=== PATIENT | female | born 1940 | race Caucasian/White ===

== ENCOUNTER → 2016-08-02 | Outpatient (CLI) | payer BC ==
[~2016-08-02] MED LIST: ACET-1138 PO; ALBU0.633 NEB; ALBU1AER9 INH; ALBU1NEB10 NEB; CALC-393 PO; CEPH500C PO; CHOL1000 PO; CLOR7.5T14 PO; DABI150C PO; DICL1GEL12 TOP; DILT-113 PO; FLEC100T21 PO; LISI10TA PO; OMEG10007 PO; PRD75 PO; VNTHFA/IN INH; ZCRT/40 PO
--- NOTE | 2016-08-02 15:36 | MAMMOGRAPHY REPORT ---
BILATERAL DIGITAL SCREENING MAMMOGRAM WITH CAD: 08/02/2016 CLINICAL HISTORY: Routine screening. The patient reported to the technologist that she has bilatera l medial breast pain, which she thinks may be related to working out at the gym. TECHNIQUE: Current study was also evaluated with a Computer Aided Detection (CAD) system. Bilatera l CC and MLO views were obtained. COMPARISON: Comparison is made to exams dated: 05/10/2015 mammogram, 03/13/2013 mammogram, 4 mammogram, 02/26/2012 mammogram, and 10/13/2009 mammogram - [facility]. BREAST COMPOSITION: The tissue of both breasts is almost entirely fatty. FINDINGS: No suspicious masses, calcifications, or areas of architectural distortion are noted in e ither breast. There has been no significant interval change compared to prior exams. Scattered bilat eral benign-appearing calcifications are not significantly changed. IMPRESSION: ACR BI-RADS CATEGORY 2: BENIGN There is no mammographic evidence of malignancy. A 1 year screening mammogram is recommended. Also recommend clinical follow-up for bilateral medial breast pain. The patient will receive written not ification of the results. Approximately 10% of breast cancers are not detected with mammography. A negative mammographic repor t should not delay biopsy if a clinically suggestive mass is present. Jodi Kelley M.D. ah/:08/02/2016 14:07:47 Bench Scientist: Amanda ROACH)([place]), [facility] letter sent: Normal 1/2 BI-RADS Code: ACR BI-RADS Category 2: Benign
== END | disposition home or self-care (01) ==
LOC: C.MAMM 12:50
PROVIDERS: ATTEND Internal Medicine
DX: Z12.31 Encounter for screening mammogram for malignant neoplasm of breast (principal); N64.4 Mastodynia

== ENCOUNTER → 2016-08-15 | Outpatient (CLI) | payer BC ==
[2016-08-15 14:59] LABS: URINE APPEARANCE CLEAR (CLEAR); URINE BILIRUBIN NEG (NEG); URINE COLOR YELLOW; URINE NITRITE NEG (NEG); URINE SPECIFIC GRAVITY 1.004 (1.000-1.030); UROBILINOGEN NEG (NEG)
[2016-08-15 15:01] LABS: MANUAL MICROSCOPIC REQUIRED? NO; REVIEW REQ? NO
== END | disposition home or self-care (01) ==
LOC: C.LAB 12:45
PROVIDERS: ATTEND Obstetrics & Gynecology
DX: R35.0 Frequency of micturition (principal)

== ENCOUNTER → 2016-11-19 | Outpatient (CLI) | payer BC ==
[2016-11-19 17:41] LABS: BASO % 0.7 %; BASO ABS # 0.06 K/uL (0-0.2); COMPLETE YES; HEMATOCRIT 42.7 % (37-47); IG% 0.1 %; LYMPH % 40.4 %; LYMPH ABS # 3.38 K/uL (1.2-3.4); MEAN CORPUSCULAR HEMOGLOBIN 29.9 pg (25-34); MEAN PLATELET VOLUME 9.6 fL (7.4-10.4); MONO % 8.5 %; NEUT % 48.3 %; PLATELET COUNT 228 K/uL (130-400); RED BLOOD COUNT 4.85 M/uL (4.2-5.4); WHITE BLOOD COUNT 8.36 K/uL (4.8-10.8)
[2016-11-19 18:14] LABS: ALT/SGPT 28 U/L (12-78); AST/SGOT 14 U/L (15-37); BLOOD UREA NITROGEN 15 mg/dl (7-18); BUN/CREATININE RATIO 15.2 (10-20); CALCIUM 8.8 mg/dl (8.5-10.1); CARBON DIOXIDE 23 mmol/L (21-32); CHLORIDE 108 mmol/L (98-107); GLUCOSE 82 mg/dl (70-99); POTASSIUM 4.1 mmol/L (3.5-5.1); SODIUM 141 mmol/L (136-145)
[2016-11-19 18:25] LABS: ALB/GLOB RATIO 1.1 (0.9-2); ALKALINE PHOSPHATASE 65 U/L (45-117); CHOLESTEROL 118 mg/dl (0-200); CHOLESTEROL/HDL RATIO 2.2; HDL CHOLESTEROL 53 mg/dl; LDL CHOLESTEROL CALCULATED 43 mg/dl; THYROID STIMULATING HORMONE 0.686 uIu/ml (0.300-4.500); TRIGLYCERIDES 112 mg/dl (0-150); VERY LOW DENSITY LIPOPROT CALC 22 mg/dl
[2016-11-20 06:31] LABS: ESTIMATED AVERAGE GLUCOSE 126 mg/dl; HA1C FLAG Normal (Normal)
--- NOTE | 2016-11-23 11:37 | CODING QUERY MEDICAL NECESSITY ---
SUPPORTING DIAGNOSIS NEEDED A supporting diagnosis is required for the test/procedure performed on this patient in order for us to be reimbursed by the patient's insurance. Please provide a supporting diagnosis for the following test/procedure listed below next to the test name along with your signature. *If there is no additional diagnosis for this patient that would support the following test/procedure please document that below next to the test/procedure. Test(s)/Procedure(s) that require a supporting diagnosis: * HEMOGLOBIN A1C DIAGNOSIS: Provider Signature: Date: Thank you Lilliam Jimenez [employer] Information Management Once completed, please kindly fax back to [phone] For questions please call [phone]
== END | disposition home or self-care (01) ==
LOC: C.LAB 17:10
PROVIDERS: ATTEND Internal Medicine
DX: E55.9 Vitamin D deficiency, unspecified (principal); R73.03 Prediabetes

== ENCOUNTER → 2016-12-31 | Day surgery (SDC) | payer BC ==
[2016-12-14 08:04] VITALS: Ht 162.6 cm; Wt 71.8 kg
[~2016-12-31] VITALS: Ht 162.6 cm; Wt 71.8 kg
[~2016-12-31] MED LIST changes: +500ML BSS 0.3ML EPI 1:1000PF IRRIG ONE; -ACET-1138 PO; +ACETAMINOPHEN 325 MG TAB PO PRN; +AMVISC PLUS 0.8ML SYRINGE INT OCU ONE; +ATROPINE SULFATE 0.1 MG/ML 5ML SYR IV PRN; +BRIMONIDINE TART 0.2% OP SOLN PER DROP CHARGE ONE; +BSS FLUSH ONE; -CALC-393 PO; +ENDOCOAT 0.85ML SYRINGE INT OCU ONE; +EpHEDrine SULFATE INJ 50 MG/ML AMP IV PRN; +EpINEphrine INJ 1MG/ML AMP 1 MG/ML AMP ONE; +FENTANYL CITRATE INJ 50 MCG/1 ML 2 ML VIAL ONE; +LACTATED RINGER'S 1000ML 500 ML IV SCH; +LIDOCAINE 4% OP SOLN DROP CHARGE ONE; +LIDOCAINE 4% OP SOLN DROP CHARGE OPL SCH; +LIDOCAINE HCL 1% MPF 2 ML VIAL ONE; +MIDAZOLAM HCL 1 MG/ML 2ML VIAL ONE; +MOXIFLOXACIN OPH SOLN PER DROP CHARGE OPL SCH; +ONDANSETRON INJ 2 MG/ML 2 ML VIAL IV PRN; +POVIDONE-IODINE OP SOLN 30 ML BTL ONE; +PROPARACAINE 0.5% OP SOLN PER DROP CHARGE OPL SCH; +TOBRAMYCIN/DEXAMETHASONE OPH OINT PER APPLN CHARGE ONE
[2016-12-31] MEDS: TROPICAMIDE 1% OP SOLN PER DROP CHARGE OPL SCH ×2 (06:45→06:50)
[2016-12-31] MEDS: PHENYLEPHRINE HCL 2.5% OP SOLN PER DROP CHARGE OPL SCH ×2 (06:45→06:49)
[2016-12-31] MEDS: CYCLOPENTOLATE HCL 1% OP SOLN PER DROP CHARGE OPL SCH ×2 (06:46→06:51)
[2016-12-31] MEDS: KETOROLAC 0.5% OP SOLN PER DROP CHARGE OPL SCH ×2 (06:47→06:52)
[2016-12-31] MEDS: MOXIFLOXACIN OPH SOLN PER DROP CHARGE OPL SCH ×2 (06:48→06:58)
[2016-12-31] MEDS: MOXIFLOXACIN OPH SOLN PER DROP CHARGE ONE ×2 (06:53→07:13)
--- NOTE | 2016-12-31 06:53 | History & Physical Bridge - SC ---
H&P Re-Evaluation Bridge Note: I have examined the patient, reviewed the History & Physical and in the interval since the performance of the History & Physical I have noted the following changes of clinical significance: No changes noted
[2016-12-31 07:30] VITALS: TEMP 37
--- NOTE | 2016-12-31 07:32 | Discharge Instructions-SurgCtr ---
Discharge Instructions Date of Service Dec 31, 2016. Visit Reason for Visit: Cataract Left Eye Discharge Discharge Diagnosis / Problem: cataract left eye Discharge Goals Goal(s): Improve function Activity Recommendations Activity Limitations: per Instructions/Follow-up section Lifting Limitations: no more than 5 pounds Anesthesia . Post Anesthesia Instructions: If you have had General Anesthesia or IV Sedation: * Do not drive today. * Resume driving when surgeon permits. * Do not make important decisions or sign legal documents today. * Call surgeon for: 1. Temperature elevations greater than 101 degrees F. 2. Uncontrollable pain. 3. Excessive bleeding. 4. Persistent nausea and vomiting. 5. Medication intolerance (nausea, vomiting or rash). * For nausea and vomiting use only clear liquids such as: tea, soda, bouillon until nausea subsides, then gradually increase diet as tolerated. * If you have any concerns or questions, call your surgeon's office. If physician is unavailable and it is an emergency, call 911 or go to the nearest emergency room. . Instructions / Follow-Up Instructions / Follow-Up ACTIVITY RECOMMENDATIONS: * Light activities * You may walk outside, read, watch television. * Mild irritation and blurred vision are common for the first few days, redness around the white part of the eye is common. MEDICATIONS: Resume previous medications unless instructed otherwise by your surgeon. Eye drops (today and tomorrow): Cipro - one drop in operative eye every 2 hours while awake Prednisolone 1% - one drop in operative eye every 2 hours while awake Ilevro - one drop operative eye 1 times daily SPECIAL CARE INSTRUCTIONS: * If any problems or concerns, please call Dr. Boyd's office at . * Keep plastic shield taped over eye to sleep at night. * Keep plastic shield taped over eye except to administer eye drops. * Keep plastic shield on until office visit the following day. FOLLOW UP VISIT: Follow-up with Dr. Boyd in the [place] office as scheduled. If not already scheduled, please call the office at . Diet Recommendations Home Diet: resume previous diet Procedures Procedures Performed: Left Eye Cataract Phacoemulsification With Intraocular Lens Implant Pending Studies Studies pending at discharge: no Medical Emergencies . Who to Call and When: Medical Emergencies: If at any time you feel your situation is an emergency, please call 911 immediately. . Non-Emergent Contact Non-Emergency issues call your: Metal Cutter . . "Provider Documentation" section prepared by Cristhian Boyd. .
--- NOTE | 2016-12-31 07:34 | [facility] Operative Report ---
Operative Report Operative Date Dec 31, 2016. Pre-Operative Diagnosis Left Eye Cataract Post-Operative Diagnosis Same Procedure(s) Performed Left Eye Cataract Phacoemulsification With Intraocular Lens Implant Surgeon Dr. Boyd Seamer Surgeon(s) None Estimated Blood Loss None Findings cataract left eye Specimens None Drains none Anesthesia local with sedation Complication(s) None Disposition Recovery Room / PACU Implants mx60 20.0 Indications decreased vision left eye Description of Procedure After informed consent was obtained in the holding area the patient was wheeled back to the operating room where cardiac monitoring leads and oxygen by nasal cannula was administered by Anesthesia. Gentle IV sedation was given, and the patient's left eye was prepped and draped in usual sterile fashion. A wire lid speculum was placed into the left eye and the operating microscope was swung into position. Using 0.12 forceps and a Supersharp blade a paracentesis port was made 3 o'clock hours away from the 3 o'clock position of the patient's left eye. 1% non-preserved Lidocaine was then injected into the anterior chamber for anesthesia. A 2.2 mm keratotome blade was then used to make a shelved clear corneal incision at the 3 o'clock position of the left eye. Amvisc was injected into the anterior chamber and a cystotome and Utrata forceps were used to perform a curvilinear capsulorrhexis. BSS on a hydrodissection cannula was used to hydrodissect the lens nucleus away from the capsular bag. The phacoemulsification handpiece was then used in a stop and chop fashion to remove the lens nucleus. The irrigation and aspiration handpiece was then used to remove the residual cortical material. Amvisc was injected into the capsular bag and anterior chamber and a Bausch & Lomb MX60 20.0 Diopter intraocular lens was injected into the capsular bag. Irrigation and aspiration handpiece was used to remove the residual viscoelastic material. The wounds were hydrated and noted to be watertight. The wire lid speculum was removed from the eye. Vigamox, Brimonidine, and TobraDex ointment were placed on the eye and it was shielded. It should be noted that EndoCoat was used extensively during the case to protect the cornea endothelium. DISPOSITION: The patient tolerated the procedure well and was wheeled to the post anesthesia care unit in stable condition. I attest to the content of the Intraoperative Record and any orders documented therein. Any exceptions are noted below. I attest to the content of the Intraoperative Record and any orders documented therein. Any exceptions are noted below.
--- NOTE | 2016-12-31 07:40 | Anesthesia Progress Nt - [facility] ---
Anesthesia Post Op Note Date & Time Dec 31, 2016 at 07:40 Vital Signs Pain Intensity: 0 Vital Signs Past 12 Hours Date Time Temp Pulse Resp B/P (MAP) Pulse Ox O2 Delivery O2 Flow Rate FiO2 12/31/16 07:30 37.0 68 20 174/94 (120) 96 Room Air 12/31/16 06:38 36.9 77 16 185/97 (126) 96 Room Air Notes Mental Status: alert / awake / arousable, participated in evaluation Pt Amnestic to Procedure: Yes Nausea / Vomiting: adequately controlled Pain: adequately controlled Airway Patency, RR, SpO2: stable & adequate BP & HR: stable & adequate Hydration State: stable & adequate Anesthetic Complications: no major complications apparent
[2016-12-31 07:50] VITALS: BP 147/89; PULSE 60; O2SAT 96
== END | disposition home or self-care (01) ==
LOC: X.SURG 06:14
PROVIDERS: ATTEND Ophthalmology
DX: H25.12 Age-related nuclear cataract, left eye (principal); I10 Essential (primary) hypertension; E78.00 Pure hypercholesterolemia, unspecified; J45.909 Unspecified asthma, uncomplicated; I48.91 Unspecified atrial fibrillation; I34.1 Nonrheumatic mitral (valve) prolapse; Z83.511 Family history of glaucoma; M06.9 Rheumatoid arthritis, unspecified; M19.90 Unspecified osteoarthritis, unspecified site; F41.9 Anxiety disorder, unspecified; Z79.01 Long term (current) use of anticoagulants

== ENCOUNTER → 2017-01-08 | Outpatient (CLI) | payer BC ==
[~2017-01-08] MED LIST changes: -500ML BSS 0.3ML EPI 1:1000PF IRRIG ONE; -ACETAMINOPHEN 325 MG TAB PO PRN; -AMVISC PLUS 0.8ML SYRINGE INT OCU ONE; -ATROPINE SULFATE 0.1 MG/ML 5ML SYR IV PRN; -BRIMONIDINE TART 0.2% OP SOLN PER DROP CHARGE ONE; -BSS FLUSH ONE; -ENDOCOAT 0.85ML SYRINGE INT OCU ONE; -EpHEDrine SULFATE INJ 50 MG/ML AMP IV PRN; -EpINEphrine INJ 1MG/ML AMP 1 MG/ML AMP ONE; -FENTANYL CITRATE INJ 50 MCG/1 ML 2 ML VIAL ONE; -LACTATED RINGER'S 1000ML 500 ML IV SCH; -LIDOCAINE 4% OP SOLN DROP CHARGE ONE; -LIDOCAINE 4% OP SOLN DROP CHARGE OPL SCH; -LIDOCAINE HCL 1% MPF 2 ML VIAL ONE; -MIDAZOLAM HCL 1 MG/ML 2ML VIAL ONE; -MOXIFLOXACIN OPH SOLN PER DROP CHARGE OPL SCH; -ONDANSETRON INJ 2 MG/ML 2 ML VIAL IV PRN; -POVIDONE-IODINE OP SOLN 30 ML BTL ONE; -PROPARACAINE 0.5% OP SOLN PER DROP CHARGE OPL SCH; -TOBRAMYCIN/DEXAMETHASONE OPH OINT PER APPLN CHARGE ONE
[2017-01-08 16:07] LABS: BLOOD UREA NITROGEN 16 mg/dl (7-18); BUN/CREATININE RATIO 14.5 (10-20); CALCIUM 9.3 mg/dl (8.5-10.1); CARBON DIOXIDE 26 mmol/L (21-32); CHLORIDE 104 mmol/L (98-107); GLUCOSE 98 mg/dl (70-99); POTASSIUM 4.2 mmol/L (3.5-5.1); SODIUM 136 mmol/L (136-145)
== END | disposition home or self-care (01) ==
LOC: C.LAB 14:21
PROVIDERS: ATTEND Internal Medicine Cardiovascular Disease
DX: I10 Essential (primary) hypertension (principal)

== ENCOUNTER → 2017-01-14 | Day surgery (SDC) | payer BC ==
[2017-01-03 11:05] VITALS: Ht 162.6 cm; Wt 71.8 kg
[~2017-01-14] VITALS: Ht 162.6 cm; Wt 71.8 kg
[~2017-01-14] MED LIST changes: +500ML BSS 0.3ML EPI 1:1000PF IRRIG ONE; +ACETAMINOPHEN 325 MG TAB PO PRN; +AMVISC PLUS 0.8ML SYRINGE INT OCU ONE; +ATROPINE SULFATE 0.1 MG/ML 5ML SYR IV PRN; +BRIMONIDINE TART 0.2% OP SOLN PER DROP CHARGE ONE; +BSS FLUSH ONE; +ENDOCOAT 0.85ML SYRINGE INT OCU ONE; +EpHEDrine SULFATE INJ 50 MG/ML AMP IV PRN; +EpINEphrine INJ 1MG/ML AMP 1 MG/ML AMP ONE; +FENTANYL CITRATE INJ 50 MCG/1 ML 2 ML VIAL ONE; +LACTATED RINGER'S 1000ML 500 ML IV SCH; +LIDOCAINE 4% OP SOLN DROP CHARGE ONE; +LIDOCAINE 4% OP SOLN DROP CHARGE OPR SCH; +LIDOCAINE HCL 1% MPF 2 ML VIAL ONE; +MIDAZOLAM HCL 1 MG/ML 2ML VIAL ONE; +MIX: 3ML BSS AND 1ML EPI(PF) TOP ONE; +MOXIFLOXACIN OPH SOLN PER DROP CHARGE ONE; +ONDANSETRON INJ 2 MG/ML 2 ML VIAL IV PRN; +POVIDONE-IODINE OP SOLN 30 ML BTL ONE; +PROPARACAINE 0.5% OP SOLN PER DROP CHARGE OPR SCH; +TOBRAMYCIN/DEXAMETHASONE OPH OINT PER APPLN CHARGE ONE
[2017-01-14] MEDS: PHENYLEPHRINE HCL 2.5% OP SOLN PER DROP CHARGE OPR SCH ×2 (06:41→06:46)
[2017-01-14] MEDS: TROPICAMIDE 1% OP SOLN PER DROP CHARGE OPR SCH ×2 (06:42→06:47)
[2017-01-14] MEDS: CYCLOPENTOLATE HCL 1% OP SOLN PER DROP CHARGE OPR SCH ×2 (06:43→06:48)
[2017-01-14] MEDS: KETOROLAC 0.5% OP SOLN PER DROP CHARGE OPR SCH ×2 (06:44→06:49)
[2017-01-14] MEDS: MOXIFLOXACIN OPH SOLN PER DROP CHARGE OPR SCH ×2 (06:45→06:55)
--- NOTE | 2017-01-14 07:24 | Discharge Instructions-SurgCtr ---
Discharge Instructions Date of Service Jan 14, 2017. Visit Reason for Visit: Right Cataract Discharge Discharge Diagnosis / Problem: cataract right eye Discharge Goals Goal(s): Improve function Medications Stopped Medications Name(s): Pradaxa, last dose 01/11/17 Activity Recommendations Activity Limitations: per Instructions/Follow-up section Lifting Limitations: no more than 5 pounds Anesthesia . Post Anesthesia Instructions: If you have had General Anesthesia or IV Sedation: * Do not drive today. * Resume driving when surgeon permits. * Do not make important decisions or sign legal documents today. * Call surgeon for: 1. Temperature elevations greater than 101 degrees F. 2. Uncontrollable pain. 3. Excessive bleeding. 4. Persistent nausea and vomiting. 5. Medication intolerance (nausea, vomiting or rash). * For nausea and vomiting use only clear liquids such as: tea, soda, bouillon until nausea subsides, then gradually increase diet as tolerated. * If you have any concerns or questions, call your surgeon's office. If physician is unavailable and it is an emergency, call 911 or go to the nearest emergency room. . Instructions / Follow-Up Instructions / Follow-Up ACTIVITY RECOMMENDATIONS: * Light activities * You may walk outside, read, watch television. * Mild irritation and blurred vision are common for the first few days, redness around the white part of the eye is common. MEDICATIONS: Resume previous medications unless instructed otherwise by your surgeon. Eye drops (today and tomorrow): Cipro - one drop in operative eye every 2 hours while awake Prednisolone 1% - one drop in operative eye every 2 hours while awake Ilevro - one drop operative eye 1 times daily SPECIAL CARE INSTRUCTIONS: * If any problems or concerns, please call Dr. Boyd's office at . * Keep plastic shield taped over eye to sleep at night. * Keep plastic shield taped over eye except to administer eye drops. * Keep plastic shield on until office visit the following day. FOLLOW UP VISIT: Follow-up with Dr. Boyd in the [place] office as scheduled. If not already scheduled, please call the office at . Diet Recommendations Home Diet: resume previous diet Procedures Procedures Performed: Right Cataract Phacoemulsification With Intraocular Lens Implant Pending Studies Studies pending at discharge: no Medical Emergencies . Who to Call and When: Medical Emergencies: If at any time you feel your situation is an emergency, please call 911 immediately. . Non-Emergent Contact Non-Emergency issues call your: Smokehouse Worker . . "Provider Documentation" section prepared by Cristhian Boyd. .
[2017-01-14 07:26] VITALS: TEMP 36.6
--- NOTE | 2017-01-14 07:26 | [facility] Operative Report ---
Operative Report Operative Date Jan 14, 2017. Pre-Operative Diagnosis Right Eye Cataract Post-Operative Diagnosis same Procedure(s) Performed Right Cataract Phacoemulsification With Intraocular Lens Implant Surgeon Dr. Keaton Boyd Irrigation Equipment Installer Surgeon(s) 0 Estimated Blood Loss 0 Findings cataract right eye Fluids (cc crystalloids) see anesthesia record Specimens none Drains none Anesthesia local with sedation Complication(s) None Disposition Recovery Room / PACU Implants mx60 19.0 Indications decreased vision right eye Description of Procedure After informed consent was obtained in the holding area the patient was wheeled back to the operating room where cardiac monitoring leads and oxygen by nasal cannula was administered by Anesthesia. Gentle IV sedation was given, and the patient's right eye was prepped and draped in usual sterile fashion. A wire lid speculum was placed into the right eye and the operating microscope was swung into position. Using 0.12 forceps and a Supersharp blade a paracentesis port was made 3 o'clock hours away from the 9 o'clock position of the patient's right eye. 1% non-preserved Lidocaine was then injected into the anterior chamber for anesthesia. A 2.2 mm keratotome blade was then used to make a shelved clear corneal incision at the 9 o'clock position of the right eye. Amvisc was injected into the anterior chamber and a cystotome and Utrata forceps were used to perform a curvilinear capsulorrhexis. BSS on a hydrodissection cannula was used to hydrodissect the lens nucleus away from the capsular bag. The phacoemulsification handpiece was then used in a stop and chop fashion to remove the lens nucleus. The irrigation and aspiration handpiece was then used to remove the residual cortical material. Amvisc was injected into the capsular bag and anterior chamber and a Bausch & Lomb MX60 19.0 Diopter intraocular lens was injected into the capsular bag. Irrigation and aspiration handpiece was used to remove the residual viscoelastic material. The wounds were hydrated and noted to be watertight. The wire lid speculum was removed from the eye. Vigamox, Brimonidine, and TobraDex ointment were placed on the eye and it was shielded. It should be noted that EndoCoat was used extensively during the case to protect the cornea endothelium. DISPOSITION: The patient tolerated the procedure well and was wheeled to the post anesthesia care unit in stable condition. I attest to the content of the Intraoperative Record and any orders documented therein. Any exceptions are noted below. I attest to the content of the Intraoperative Record and any orders documented therein. Any exceptions are noted below.
--- NOTE | 2017-01-14 07:34 | Anesthesia Progress Nt - [facility] ---
Anesthesia Post Op Note Date & Time Jan 14, 2017 at 07:34 Vital Signs Pain Intensity: 0 Vital Signs Past 12 Hours Date Time Temp Pulse Resp B/P (MAP) Pulse Ox O2 Delivery O2 Flow Rate FiO2 01/14/17 07:26 36.6 66 14 182/95 (124) 94 Room Air 01/14/17 06:31 36.6 78 16 161/87 (111) 95 Room Air Notes Mental Status: alert / awake / arousable, participated in evaluation Pt Amnestic to Procedure: Yes Nausea / Vomiting: adequately controlled Pain: adequately controlled Airway Patency, RR, SpO2: stable & adequate BP & HR: stable & adequate Hydration State: stable & adequate Anesthetic Complications: no major complications apparent
[2017-01-14 07:43] VITALS: BP 142/82; PULSE 57; O2SAT 95
== END | disposition home or self-care (01) ==
LOC: X.SURG 06:22
PROVIDERS: ATTEND Ophthalmology
DX: H25.11 Age-related nuclear cataract, right eye (principal); I10 Essential (primary) hypertension; E78.00 Pure hypercholesterolemia, unspecified; I48.91 Unspecified atrial fibrillation; Z79.01 Long term (current) use of anticoagulants; Z96.1 Presence of intraocular lens

== ENCOUNTER 2017-01-19 16:08 | Emergency (ER) | payer BC ==
[~2017-01-19] VITALS: Ht 162.6 cm; Wt 72.0 kg
[~2017-01-19 16:08] MED LIST changes: -500ML BSS 0.3ML EPI 1:1000PF IRRIG ONE; -ACETAMINOPHEN 325 MG TAB PO PRN; -ALBU0.633 NEB; -AMVISC PLUS 0.8ML SYRINGE INT OCU ONE; -ATROPINE SULFATE 0.1 MG/ML 5ML SYR IV PRN; -BRIMONIDINE TART 0.2% OP SOLN PER DROP CHARGE ONE; -BSS FLUSH ONE; -CEPH500C PO; -DABI150C PO; -DICL1GEL12 TOP; -DILT-113 PO; -ENDOCOAT 0.85ML SYRINGE INT OCU ONE; -EpHEDrine SULFATE INJ 50 MG/ML AMP IV PRN; -EpINEphrine INJ 1MG/ML AMP 1 MG/ML AMP ONE; -FENTANYL CITRATE INJ 50 MCG/1 ML 2 ML VIAL ONE; -LACTATED RINGER'S 1000ML 500 ML IV SCH; -LIDOCAINE 4% OP SOLN DROP CHARGE ONE; -LIDOCAINE 4% OP SOLN DROP CHARGE OPR SCH; -LIDOCAINE HCL 1% MPF 2 ML VIAL ONE; -MIDAZOLAM HCL 1 MG/ML 2ML VIAL ONE; -MIX: 3ML BSS AND 1ML EPI(PF) TOP ONE; -MOXIFLOXACIN OPH SOLN PER DROP CHARGE ONE; -ONDANSETRON INJ 2 MG/ML 2 ML VIAL IV PRN; -POVIDONE-IODINE OP SOLN 30 ML BTL ONE; -PROPARACAINE 0.5% OP SOLN PER DROP CHARGE OPR SCH; -TOBRAMYCIN/DEXAMETHASONE OPH OINT PER APPLN CHARGE ONE; -VNTHFA/IN INH
[2017-01-19 16:27] VITALS: TEMP 36.5; Ht 162.6 cm; Wt 72.0 kg
[2017-01-19] MEDS ORDERED: DABI150C PO (16:57)
[2017-01-19] MEDS ORDERED: VNTHFA/IN INH (16:57)
[2017-01-19] MEDS ORDERED: ALBU0.633 NEB (16:57)
--- NOTE | 2017-01-19 17:08 | EMERGENCY ROOM VISIT NOTE ---
ED Visit Note First contact with patient: 16:33 CHIEF COMPLAINT: Right foot pain HISTORY OF PRESENT ILLNESS: This 76 yo female patient presents to the emergency department, ambulatory, complaining of swelling and pain in the right foot at rest and worse with weight bearing. The patient states the pain began this morning when getting out of bed. She states she was riding the recumbent bike at the gym yesterday, did not experience any pain until this morning. 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 The patient rates the pain as constant and 8/10. The patient has had no relief of the pain, despite using ice. The patient is able to walk, however this significantly worsens the discomfort. No numbness or weakness. No ankle pain. There are no lacerations of the foot. The patient is able to move all of their toes and their ankle without pain. No previous fracture to this foot. No history of osteoporosis or osteopenia. REVIEW OF SYSTEMS: GENERAL: A 6 system review of systems was completed with positives and pertinent negatives in the HPI. ALLERGIES: Bactrim, ciprofloxacin, Permax 15, Singulair, Celebrex, moxifloxacin , a citalopram, corticosteroids, pollen MEDICATIONS: Please see list. I did personally review the patient's medication list at bedside. PMH: Hyperlipidemia, asthma, hypertension SOCIAL HISTORY: The patient lives locally with family. She denies drug, alcohol , tobacco use. PHYSICAL EXAM: Vital Signs: Reviewed Nurse's notes, vital signs stable. GENERAL : This is a 76-year-old female, in no acute distress, but appears in pain, well- developed, well-nourished. MUSCULOSKELATAL: There is no visual deformity of the right foot. There is no erythema or ecchymosis. There is no warmth. There is tenderness and swelling over the medial, plantar aspect of the right foot. There is no tenderness over the lateral or medial malleolus. No tenderness of the tib/fib. The range of motion of the right foot is full. There is mild tenderness over the plantar fascia. The skin is intact and there are no lacerations or puncture wounds. Dorsalis pedis pulse 2+. Capillary refill less than 2 seconds. RADIOLOGY: X-Ray Right Foot: FINDINGS: Tarsometatarsal joints are intact. There is no acute fracture. Irregularity of the base of the right fifth metatarsal is chronic. There is mild soft tissue swelling along the medial aspect the right first metatarsophalangeal joint. Evaluation of several toes is difficult due to chronic deformity. IMPRESSION: 1. No acute fracture or dislocation of the right foot. 2. Mild soft tissue swelling along the medial aspect the right first metatarsophalangeal joint. EMERGENCY DEPARTMENT COURSE: I examined the patient. The patient does request crutches to help her walk. An X-ray of the right foot was reviewed by myself and radiologist and reveals medial soft tissue swelling, but no acute fracture. The patient was placed in an Carlos wrap and instructed on the use of crutches. The patient was discharged home in good condition. The patient was seen by Dr. Hurley, who is in agreement with the assessment and plan. The patient's blood pressure throughout her emergency department visit was normal. DIFFERENTIAL DIAGNOSIS: Plantar fasciitis, fracture, sprain, contusion, strain, and others. DIAGNOSIS: plantar fasciitis TREATMENT: Acetaminophen(Tylenol) may be used for fever or pain. Use 1000mg every six hours as needed. Avoid using more than 3000mg in a 24 hour period. Use Voltaren Gel as directed. Ice compresses for 20 minutes at a time four times daily for 2-3 days. As discussed, you should freeze a water bottle, and roll this under your foot during the day. Use the carlos wrap for compression around the foot. This will help with swelling. Use the crutches as instructed. Rest and elevate your injury. Return to the ER immediately for any numbness, tingling, severe pain, extreme swelling in the extremity or as needed. Call your physical therapist for further evaluation and rehabilitation regarding your soft tissue injury. Call [facility], [phone], if no improvement in 1-2 weeks, to arrange follow up for your injury. Follow-up with your primary care physician in 2 to 3 days for a recheck of your current condition. Problem List Medical Problems: (1) A-fib Status: Chronic (2) Acute abdominal pain Status: Resolved (3) Acute abdominal pain Status: Resolved (4) Asthma Status: Chronic (5) Dyslipidemia Status: Chronic (6) Hematuria Status: Resolved (7) HTN (hypertension) Status: Chronic Current/Historical Medications Scheduled Cholecalciferol (Vitamin D3), 1,000 TAB PO 3XWK Dabigatran Etexilate Mesylate (Pradaxa), 150 MG PO BID Diclofenac Sodium (Topical) (Voltaren 1% Top Gel), 4 GM TOP QID Flecainide (Tambocor), 100 MG PO BID Lisinopril (Prinivil), 10 MG PO QAM Simvastatin (Zocor), 40 MG PO QPM Scheduled PRN Albuterol Hfa (Ventolin Hfa), 1 PUFFS INH Q4 PRN for SORE THROAT Albuterol Sulfate (Albuterol Sulfate), 1 VIAL NEB Q6 PRN for SOB/Wheezing Clorazepate Dipotassium (Tranxene-T), 7.5 MG PO TID PRN for Anxiety/Agitation Allergies Coded Allergies: Sulfamethoxazole w/Trimethoprim (Verified Allergy, Intermediate, RASH, ) Moxifloxacin (Verified Allergy, Unknown, unknown, 01/19/17) POLLEN (Verified Allergy, Unknown, HAY FEVER, 01/19/17) Corticosteroids (Verified Adverse Reaction, Intermediate, BECOMES "EMOTIONAL", 01/19/17) Celecoxib (Verified Adverse Reaction, Unknown, PT STATES SHE DOESN'T TOLERATE, "FELT FAINT", 01/19/17) Ciprofloxacin (Verified Adverse Reaction, Unknown, abdominal pain, 01/19/17 ) Escitalopram (Verified Adverse Reaction, Unknown, dreams, abd pain, ) Montelukast (Verified Adverse Reaction, Unknown, DRY MOUTH, 01/19/17) Paroxetine (Verified Adverse Reaction, Unknown, abd pain, dreams, 01/19/17) Vital Signs Date Time Temp Pulse Resp B/P (MAP) Pulse Ox O2 Delivery O2 Flow Rate FiO2 01/19/17 16:27 36.5 76 16 142/88 94 Room Air Departure Information Impression Primary Impression: Plantar fasciitis of right foot Dispostion Home / Self-Care Condition GOOD Prescriptions Diclofenac Sodium (Topical) (VOLTAREN 1% TOP GEL) 1 % Gel 4 GM TOP QID for 14 Days, #1 TUBE Prov: Monique Streeter, WES 01/19/17 Referrals Earl Braun M.D. (PCP) Sebastianelli, Aaron J.,M.D. Patient Instructions ED Plantar Fasciitis, [facility] Additional Instructions ORTHOPEDIC INSTRUCTIONS: Acetaminophen(Tylenol) may be used for fever or pain. Use 1000mg every six hours as needed. Avoid using more than 3000mg in a 24 hour period. Use Voltaren Gel as directed. Ice compresses for 20 minutes at a time four times daily for 2-3 days. As discussed, you should freeze a water bottle, and roll this under your foot during the day. Use the carlos wrap for compression around the foot. This will help with swelling. Use the crutches as instructed. Rest and elevate your injury. Return to the ER immediately for any numbness, tingling, severe pain, extreme swelling in the extremity or as needed. Call your physical therapist for further evaluation and rehabilitation regarding your soft tissue injury. Call [facility], [phone], if no improvement in 1-2 weeks, to arrange follow up for your injury. Follow-up with your primary care physician in 2 to 3 days for a recheck of your current condition.
--- NOTE | 2017-01-19 17:24 | DIAGNOSTIC IMAGING REPORT ---
RIGHT FOOT MIN 3 VIEWS ROUTINE CLINICAL HISTORY: Medial right foot pain. COMPARISON: None FINDINGS: Tarsometatarsal joints are intact. There is no acute fracture. Irregularity of the base of the right fifth metatarsal is chronic. There is mild soft tissue swelling along the medial aspect the right first metatarsophalangeal joint. Evaluation of several toes is difficult due to chronic deformity. IMPRESSION: 1. No acute fracture or dislocation of the right foot. 2. Mild soft tissue swelling along the medial aspect the right first metatarsophalangeal joint. Electronically signed by: Prosper Mathews M.D. 01/19/2017 5:23 PM Dictated Date/Time: 01/19/2017 5:21 PM
[2017-01-19] MEDS ORDERED: DICL1GEL12 TOP (18:06)
[2017-01-19 18:13] VITALS: BP 137/87; PULSE 63; O2SAT 95
--- NOTE | 2017-01-19 20:16 | EMERGENCY ROOM VISIT NOTE ---
ED Visit Note First contact with patient: 16:33 I have personally evaluated and examined this patient. I agree with assessment and plan of Monique Streeter PA-C. Medial right foot swelling s/p exercise. No fracture likely this is inflammatory non-infection. JACKIE.
[2017-01-20] MEDS ORDERED: CEPH500C PO (20:05)
== END 2017-01-19 18:14 | disposition home or self-care (01) ==
LOC: C.EDB 16:08 → C.EDD 18:14
DX: M72.2 Plantar fascial fibromatosis (principal); I10 Essential (primary) hypertension; I48.91 Unspecified atrial fibrillation; E78.5 Hyperlipidemia, unspecified; J45.909 Unspecified asthma, uncomplicated; Z79.899 Other long term (current) drug therapy; Z88.2 Allergy status to sulfonamides; Z88.8 Allergy status to other drugs, medicaments and biological substances

== ENCOUNTER 2017-01-20 19:28 | Emergency (ER) | payer BC ==
[~2017-01-20] VITALS: Ht 162.6 cm; Wt 72.4 kg
[~2017-01-20 19:28] MED LIST changes: +ALBU0.633 NEB; -ALBU1AER9 INH; -ALBU1NEB10 NEB; +DABI150C PO; +DICL1GEL12 TOP; -OMEG10007 PO; -PRD75 PO; +VNTHFA/IN INH
[2017-01-20 19:36] VITALS: TEMP 36.5; Ht 162.6 cm; Wt 72.4 kg
[2017-01-20] MEDS ORDERED: CEPH500C PO (20:05)
[2017-01-20] MEDS ORDERED: CEPHALEXIN 500MG HOME PACK 1 EA BTL PO STA (20:06)
--- NOTE | 2017-01-20 20:06 | EMERGENCY ROOM VISIT NOTE ---
ED Visit Note First contact with patient: 19:51 I did evaluate and examine this patient myself. I did guide management for the patient. I agree with the APC's assessment as discussed. Please see the APC's dictation for further details. The patient is presenting with right ankle pain. She seen here yesterday but developed redness this morning. She appears to have a small area of cellulitis and will be started on Keflex. She was advised follow up with her doctor.
--- NOTE | 2017-01-20 20:07 | EMERGENCY ROOM VISIT NOTE ---
ED Visit Note First contact with patient: 19:51 CHIEF COMPLAINT: Infection of the right foot HISTORY OF PRESENT ILLNESS: This 76-year-old female patient presents to the emergency department for the second time in 2 days, complaining of redness in the medial aspect of the right foot. The patient states since yesterday, she has been using ice every 20 minutes and wearing the Carlos wrap for compression. She states the pain has significantly improved since yesterday. The patient has been using crutches to help her walk for comfort. The patient states the swelling has also improved since yesterday. The patient states she became concerned when she noticed a small area of redness on the medial aspect of the right foot. She does still have full range of motion, and has been tolerating weightbearing much better. The area of redness is not warm or painful. The patient denies fever, chills, nausea, or loss of appetite. The patient's tetanus shot is up to date. REVIEW OF SYSTEMS: A 10-system review of systems was performed with positives and pertinent negatives listed in the history of present illness. All other systems were reviewed and are negative. ALLERGIES: Bactrim, moxifloxacin, pollen, corticosteroids, Celebrex, ciprofloxacin, escitalopram, Singulair, paroxetine MEDICATIONS: Please see list. I did personally review the patient's medication list at bedside. PMH: Unchanged from previous visit. SOCIAL HISTORY: The patient lives locally with family. She denies drug, alcohol , tobacco use. PHYSICAL EXAM: Vital Signs: Reviewed Nurse's notes, Temperature 36.5C, vital signs stable, however blood pressure is elevated. The patient states she is very worried about the redness in her foot, and is concerned she has a blood clot. The patient states she has been very stressed out today. GENERAL: This is a 76-year-old female, in no acute distress, is non toxic in appearance, well- developed, well-nourished. SKIN: There is a 2 cm in diameter circular area of extremely mild erythema. The area is not red, warm, tender, or swollen. There is no lymphangitic streaking. There is no discharge. There is no fluctuance. There is no induration. There is no open wound. HEART: Regular rate and rhythm without murmur, gallop, or rub. LUNGS: Clear to auscultation bilaterally without wheezes, rales, or rhonchi. NEURO: Alert and oriented to person, place, and time. Normal sensation to light and sharp touch. Capillary reflex less than 2 seconds. Peripheral pulses 2 + bilaterally. EMERGENCY DEPARTMENT COURSE: I examined the patient. The patient presents with an extremely mild erythematous area on the medial aspect of the right foot. The patient had been seen yesterday and was diagnosed with tendinitis versus plantar fasciitis yesterday. She states her symptoms are significantly improving. She was seen by Dr. Al in the emergency department, who does feel that the area is cellulitic in appearance. The patient will be started on Keflex as prescribed. I discussed this with the patient, and she was discharged home in good condition. I do feel that the patient's blood pressure elevation is situational at this time. The patient is under the care of a physician regarding her blood pressure. I did encourage her to follow-up with her physician regarding elevated blood pressure. DIFFERENTIAL DIAGNOSIS: Cellulitis, tendonitis, plantar fasciitis, local reaction to topical cream, and others. DIAGNOSIS: Cellulitis of the right foot DISCHARGE INSTRUCTIONS: You were prescribed Keflex to be taken 4 times daily. This is an antibiotic. All antibiotics have the potential to cause diarrhea. Stop this medication and contact a medical provider if you were to develop any significant adverse side effects including: wheezing, shortness of breath, passing out, vomiting, or a diffuse rash. Always take antibiotics as directed and COMPLETE the ENTIRE course regardless of the improvement of your symptoms. Use Voltaren gel and/or Tylenol as recommended yesterday for discomfort. Return to the emergency department for worsening redness, swelling, fever, nausea, vomiting, chills, or other concerning symptoms. Please follow up this week with your PCP for recheck and further evaluation. Problem List Medical Problems: (1) A-fib Status: Chronic (2) Acute abdominal pain Status: Resolved (3) Acute abdominal pain Status: Resolved (4) Asthma Status: Chronic (5) Dyslipidemia Status: Chronic (6) Hematuria Status: Resolved (7) HTN (hypertension) Status: Chronic Current/Historical Medications Scheduled Cephalexin Monohydrate (Keflex), 500 MG PO QID Cholecalciferol (Vitamin D3), 1,000 TAB PO 3XWK Dabigatran Etexilate Mesylate (Pradaxa), 150 MG PO BID Diclofenac Sodium (Topical) (Voltaren 1% Top Gel), 4 GM TOP QID Flecainide (Tambocor), 100 MG PO BID Lisinopril (Prinivil), 10 MG PO QAM Simvastatin (Zocor), 40 MG PO QPM Scheduled PRN Albuterol Hfa (Ventolin Hfa), 1 PUFFS INH Q4 PRN for SORE THROAT Albuterol Sulfate (Albuterol Sulfate), 1 VIAL NEB Q6 PRN for SOB/Wheezing Clorazepate Dipotassium (Tranxene-T), 7.5 MG PO TID PRN for Anxiety/Agitation Allergies Coded Allergies: Sulfamethoxazole w/Trimethoprim (Verified Allergy, Intermediate, RASH, ) Moxifloxacin (Verified Allergy, Unknown, unknown, 01/19/17) POLLEN (Verified Allergy, Unknown, HAY FEVER, 01/19/17) Corticosteroids (Verified Adverse Reaction, Intermediate, BECOMES "EMOTIONAL", 01/19/17) Celecoxib (Verified Adverse Reaction, Unknown, PT STATES SHE DOESN'T TOLERATE, "FELT FAINT", 01/19/17) Ciprofloxacin (Verified Adverse Reaction, Unknown, abdominal pain, 01/19/17 ) Escitalopram (Verified Adverse Reaction, Unknown, dreams, abd pain, ) Montelukast (Verified Adverse Reaction, Unknown, DRY MOUTH, 01/19/17) Paroxetine (Verified Adverse Reaction, Unknown, abd pain, dreams, 01/19/17) Vital Signs Date Time Temp Pulse Resp B/P (MAP) Pulse Ox O2 Delivery O2 Flow Rate FiO2 01/20/17 19:36 36.5 107 18 188/86 95 Room Air Departure Information Impression Primary Impression: Cellulitis of foot, right Dispostion Home / Self-Care Condition GOOD Prescriptions Cephalexin Monohydrate (Keflex) 500 Mg Cap 500 MG PO QID for 10 Days, #40 CAP Prov: Monique Streeter PA-C 01/20/17 Referrals Earl Braun M.D. (PCP) Patient Instructions ED Infec Skin Cellulitis, My [facility] Additional Instructions You were prescribed Keflex to be taken 4 times daily. This is an antibiotic. All antibiotics have the potential to cause diarrhea. Stop this medication and contact a medical provider if you were to develop any significant adverse side effects including: wheezing, shortness of breath, passing out, vomiting, or a diffuse rash. Always take antibiotics as directed and COMPLETE the ENTIRE course regardless of the improvement of your symptoms. Use Voltaren gel and/or Tylenol as recommended yesterday for discomfort. Return to the emergency department for worsening redness, swelling, fever, nausea, vomiting, chills, or other concerning symptoms. Please follow up this week with your PCP for recheck and further evaluation.
[2017-01-20 20:23] VITALS: BP 151/92; PULSE 89; O2SAT 95
== END 2017-01-20 20:26 | disposition home or self-care (01) ==
LOC: C.EDB 19:31 → C.EDD 20:26
DX: L03.115 Cellulitis of right lower limb (principal); I48.91 Unspecified atrial fibrillation; J45.909 Unspecified asthma, uncomplicated; E78.5 Hyperlipidemia, unspecified; I10 Essential (primary) hypertension

== ENCOUNTER → 2017-03-16 | Outpatient (CLI) | payer BC ==
[2017-03-16 12:14] LABS: URINE APPEARANCE CLEAR (CLEAR); URINE BILIRUBIN NEG (NEG); URINE COLOR YELLOW; URINE NITRITE NEG (NEG); URINE SPECIFIC GRAVITY 1.017 (1.000-1.030); UROBILINOGEN NEG (NEG)
[2017-03-16 12:20] LABS: MANUAL MICROSCOPIC REQUIRED? NO; REVIEW REQ? NO
== END ==
LOC: C.LABSPEC 12:45
PROVIDERS: ATTEND Nurse Practitioner Adult Health
DX: R39.9 Unspecified symptoms and signs involving the genitourinary system (principal)

== ENCOUNTER → 2017-03-18 | Outpatient (CLI) | payer BC | END | disposition home or self-care (01) | LOC: C.LABSPEC 18:06 | PROVIDERS: ATTEND Physician Assistant | DX: N94.9 Unspecified condition associated with female genital organs and menstrual cycle (principal) ==

== ENCOUNTER → 2017-03-21 | Outpatient (CLI) | payer BC ==
[2017-03-21 14:50] LABS: URINE APPEARANCE CLEAR (CLEAR); URINE BILIRUBIN NEG (NEG); URINE COLOR YELLOW; URINE NITRITE NEG (NEG); URINE PH 5.5 (4.5-7.5); URINE SPECIFIC GRAVITY 1.017 (1.000-1.030); UROBILINOGEN NEG (NEG); ZZUR CULT IF INDIC CLEAN CATCH NO
[2017-03-21 14:52] LABS: MANUAL MICROSCOPIC REQUIRED? NO; REVIEW REQ? NO
== END | disposition home or self-care (01) ==
LOC: C.LAB 13:50
PROVIDERS: ATTEND Nurse Practitioner Adult Health
DX: R30.0 Dysuria (principal); N39.0 Urinary tract infection, site not specified

== ENCOUNTER → 2017-06-11 | Outpatient (CLI) | payer BC ==
[2017-06-11 09:53] LABS: ALBUMIN 3.9 gm/dl (3.4-5.0); ALT/SGPT 35 U/L (12-78); BLOOD UREA NITROGEN 17 mg/dl (7-18); CALCIUM 9.2 mg/dl (8.5-10.1); CARBON DIOXIDE 28 mmol/L (21-32); CREATININE 1.15 mg/dl (0.60-1.20); GLUCOSE 86 mg/dl (70-99); SODIUM 134 mmol/L (136-145)
[2017-06-11 09:57] LABS: ALKALINE PHOSPHATASE 53 U/L (45-117); AST/SGOT 22 U/L (15-37); TOTAL PROTEIN 7.4 gm/dl (6.4-8.2)
[2017-06-11 10:01] LABS: HEMOGLOBIN A1C 5.9 % (4.5-5.6)
== END | disposition home or self-care (01) ==
LOC: C.LAB 06:49
PROVIDERS: ATTEND Internal Medicine
DX: J45.909 Unspecified asthma, uncomplicated (principal); I10 Essential (primary) hypertension; R73.03 Prediabetes; I48.0 Paroxysmal atrial fibrillation; Z79.01 Long term (current) use of anticoagulants; F43.20 Adjustment disorder, unspecified

== ENCOUNTER 2017-06-20 06:54 | Emergency (ER) | payer BC ==
[~2017-06-20] VITALS: Ht 162.6 cm; Wt 72.0 kg
[2017-06-20 07:01] VITALS: TEMP 36.9; Ht 162.6 cm; Wt 72.0 kg
--- NOTE | 2017-06-20 07:12 | EMERGENCY ROOM VISIT NOTE ---
History Report prepared by Ge: Magdalene Dominguez Under the Supervision of: Dr. Hilda Kumar M.D. First contact with patient: 07:09 Chief Complaint: FLU LIKE SX Stated Complaint: BODY HURTS,NO ENERGY,COUGH History of Present Illness The patient is a 76 year old female who presents to the Emergency Room with complaints of flu-like symptoms beginning 5 days ago. The patient states that she slept a lot yesterday, and has had increased fatigue. She denies having fevers, but states that she has had a cough and multiple bowel movements a day. She denies trouble urinating and also denies having blood in her stool. The patient reports eating normally. She states that she feels as if she has a sinus infection too. She reports that she has been taking Tylenol for her symptoms, and that her last dose was at 0400 this morning. The patient states that she had a flu-shot this year. The patient reports a history of asthma and atrial fibrillation in 2011, but denies being diabetic or having other medical problems. Source of History: patient Onset: 5 days ago Position: other (global) Quality: other (flu-like symptoms ) Associated Symptoms: + cough, No fevers, No urinary symptoms Note: additional symptoms: fatigue, multiple bowel movements per day Review of Systems See HPI for pertinent positives & negatives. A total of 10 systems reviewed and were otherwise negative. Past Medical & Surgical Medical Problems: (1) A-fib (2) Acute abdominal pain (3) Acute abdominal pain (4) Asthma (5) Dyslipidemia (6) Hematuria (7) HTN (hypertension) Surgical Problems: (1) Post-operative state Family History No pertinent family history Social History Smoking Status: Never Smoker Alcohol Use: none Marital Status: Housing Status: lives with family Occupation Status: employed Current/Historical Medications Scheduled Amoxicillin & Pot Clavulanate (Augmentin 875-125 mg), 875 MG PO BID Cholecalciferol (Vitamin D3), 1,000 TAB PO QAM Clorazepate Dipotassium (Tranxene-T), 2 TABS PO HS Dabigatran Etexilate Mesylate (Pradaxa), 150 MG PO BID Diclofenac Sodium (Topical) (Voltaren 1% Top Gel), 4 GM TOP QID Flecainide (Tambocor), 100 MG PO BID Lisinopril (Prinivil), 10 MG PO QAM Simvastatin (Zocor), 40 MG PO QPM Scheduled PRN Albuterol Sulfate (Albuterol Sulfate), 1 VIAL NEB Q6 PRN for SOB/Wheezing Albuterol Sulfate (Proair Respiclick), 1 PUFF INH Q4H PRN for SOB/Wheezing Clorazepate Dipotassium (Tranxene-T), 7.5 MG PO QAM PRN for Anxiety/Agitation Tramadol (Ultram), 1 TABS PO Q6 PRN for Pain Allergies Coded Allergies: Sulfamethoxazole w/Trimethoprim (Verified Allergy, Intermediate, RASH, ) Moxifloxacin (Verified Allergy, Unknown, unknown, 06/20/17) POLLEN (Verified Allergy, Unknown, HAY FEVER, 06/20/17) Corticosteroids (Verified Adverse Reaction, Intermediate, BECOMES "EMOTIONAL", 06/20/17) Celecoxib (Verified Adverse Reaction, Unknown, PT STATES SHE DOESN'T TOLERATE, "FELT FAINT", 06/20/17) Ciprofloxacin (Verified Adverse Reaction, Unknown, abdominal pain, 06/20/17 ) Escitalopram (Verified Adverse Reaction, Unknown, dreams, abd pain, ) Montelukast (Verified Adverse Reaction, Unknown, DRY MOUTH, 06/20/17) Paroxetine (Verified Adverse Reaction, Unknown, abd pain, dreams, 06/20/17) Physical Exam Vital Signs Date Time Temp Pulse Resp B/P (MAP) Pulse Ox O2 Delivery O2 Flow Rate FiO2 06/20/17 10:09 81 16 184/94 06/20/17 08:40 80 16 164/78 95 Room Air 06/20/17 07:20 77 06/20/17 07:01 36.9 83 18 180/106 95 Room Air Physical Exam Vital signs reviewed. General: Elderly-appearing female, in some discomfort. HEENT: No scleral icterus, PERRLA, neck supple. Atraumatic. Tender to palpation over the right maxillary sinus. Cardiovascular: Regular rate and rhythm, no extra sounds. Pulmonary: Dry cough with crackles at the left base. Normal work of breathing Abdomen: Soft, nontender, nondistended, positive bowel sounds. Musculoskeletal: Atraumatic, no peripheral edema. Neurologic: Patient awake alert and oriented x 3, full strength in all 4 extremities. Cranial nerves 2 through 12 grossly intact. Skin: Warm, dry, no rash Medical Decision & Procedures ER Provider Diagnostic Interpretation: Radiology results as stated below per my review and radiologist interpretation: CHEST ONE VIEW PORTABLE CLINICAL HISTORY: cough, flu like sx dyspnea COMPARISON STUDY: 06/20/2014 FINDINGS: The bones soft tissues and hemidiaphragms are normal. The cardiomediastinal silhouette is normal. The lungs are clear. The pulmonary vasculature is normal. IMPRESSION: Negative chest. The above report was generated using voice recognition software. It may contain grammatical, syntax or spelling errors. Electronically signed by: Aaron Gonzalez M.D. 06/20/2017 7:43 AM Dictated Date/Time: 06/20/2017 7:39 AM Laboratory Results 06/20/17 07:35 Red Blood Count 4.85, Mean Corpuscular Volume 89.3, Mean Corpuscular Hemoglobin 30.3, Mean Corpuscular Hemoglobin Concent 33.9, Mean Platelet Volume 9.7, Neutrophils (%) (Auto) 61.8, Lymphocytes (%) (Auto) 26.2, Monocytes (%) (Auto) 9.1, Eosinophils (%) (Auto) 1.6, Basophils (%) (Auto) 1.1, Neutrophils # (Auto) 3.45, Lymphocytes # (Auto) 1.46, Monocytes # (Auto) 0.51, Eosinophils # (Auto) 0.09, Basophils # (Auto) 0.06 06/20/17 07:35 Test 06/20/17 07:35 06/20/17 07:41 06/20/17 08:55 White Blood Count 5.58 K/uL (4.8-10.8) Red Blood Count 4.85 M/uL (4.2-5.4) Hemoglobin 14.7 g/dL (12.0-16.0) Hematocrit 43.3 % (37-47) Mean Corpuscular Volume 89.3 fL (80-100) Mean Corpuscular Hemoglobin 30.3 pg (25-34) Mean Corpuscular Hemoglobin Concent 33.9 g/dl (32-36) Platelet Count 208 K/uL (130-400) Mean Platelet Volume 9.7 fL (7.4-10.4) Neutrophils (%) (Auto) 61.8 % Lymphocytes (%) (Auto) 26.2 % Monocytes (%) (Auto) 9.1 % Eosinophils (%) (Auto) 1.6 % Basophils (%) (Auto) 1.1 % Neutrophils # (Auto) 3.45 K/uL (1.4-6.5) Lymphocytes # (Auto) 1.46 K/uL (1.2-3.4) Monocytes # (Auto) 0.51 K/uL (0.11-0.59) Eosinophils # (Auto) 0.09 K/uL (0-0.5) Basophils # (Auto) 0.06 K/uL (0-0.2) RDW Standard Deviation 45.2 fL (36.4-46.3) RDW Coefficient of Variation 13.9 % (11.5-14.5) Immature Granulocyte % (Auto) 0.2 % Immature Granulocyte # (Auto) 0.01 K/uL (0.00-0.02) Anion Gap 8.0 mmol/L (3-11) Est Creatinine Clear Calc Drug Dose 46.8 ml/min Estimated GFR () 63.1 Estimated GFR (Non- 54.4 BUN/Creatinine Ratio 15.0 (10-20) Calcium Level 9.5 mg/dl (8.5-10.1) Total Bilirubin 0.4 mg/dl (0.2-1) Direct Bilirubin < 0.1 mg/dl (0-0.2) Aspartate Amino Transf (AST/SGOT) 21 U/L (15-37) Alanine Aminotransferase (ALT/SGPT) 30 U/L (12-78) Alkaline Phosphatase 56 U/L (45-117) Total Protein 7.6 gm/dl (6.4-8.2) Albumin 4.0 gm/dl (3.4-5.0) Influenza Type A Antigen Neg for Influ A (NEG) Influenza Type B Antigen Neg for Influ B (NEG) Bedside Troponin I < 0.030 ng/ml (0-0.045) Urine Color YELLOW Urine Appearance CLEAR (CLEAR) Urine pH 5.5 (4.5-7.5) Urine Specific [place] 1.013 (1.000-1.030) Urine Protein NEG (NEG) Urine Glucose (UA) NEG (NEG) Urine Ketones NEG (NEG) Urine Occult Blood TRACE (NEG) Urine Nitrite NEG (NEG) Urine Bilirubin NEG (NEG) Urine Urobilinogen NEG (NEG) Urine Leukocyte Esterase NEG (NEG) Urine WBC (Auto) 0 /hpf (0-5) Urine RBC (Auto) 0-4 /hpf (0-4) Urine Hyaline Casts (Auto) 0 /lpf (0-5) Urine Epithelial Cells (Auto) 5-10 /lpf (0-5) Urine Bacteria (Auto) NEG (NEG) Laboratory results per my review. Medications Administered Medications (Trade) Dose Ordered Sig/Earnest Route Start Time Stop Time Status Last Admin Dose Admin Albuterol/ Ipratropium (Duoneb) 3 ml NOW STAT INH 06/20/17 07:16 06/20/17 07:19 DC 06/20/17 07:30 3 ML Sodium Chloride 500 ml @ 999 mls/hr Q31M STAT IV 06/20/17 07:16 06/20/17 07:46 DC 06/20/17 07:31 999 MLS/HR Tramadol HCl (Ultram Tab) 50 mg NOW STAT PO 06/20/17 07:16 06/20/17 07:19 DC 06/20/17 07:30 50 MG Ondansetron HCl (Zofran Inj) 4 mg NOW STAT IV 06/20/17 07:21 06/20/17 07:22 DC 06/20/17 07:30 4 MG ECG Indication: weakness Rate (beats per minute): 69 Rhythm: sinus rhythm Findings: 1st degree AV block, no acute ischemic change, no ectopy Comparison ECG Date: Patient's Electrocardiogram interpreted by me ED Course 0714: Past medical records reviewed. The patient was evaluated in room A3. A complete history and physical examination was performed. 0716: Ordered Ultram Tab 50 mg PO, Sodium Chloride 500 ml @ 999 mls/hr IV, Duoneb 3 ml INH. 0721: Ordered Zofran Inj 4 mg IV. 1030: Upon reevaluation, the patient appeared to have improvement of her symptoms. I discussed findings with her. She verbalized agreement of the treatment plan. She was discharged home. Medical Decision Differential Diagnoses: Influenza, other viral illness, pneumonia, urinary tract infection, metabolic abnormality, medication effect, cellulitis, meningitis, intra-abdominal source. This patient was evaluated and appeared to be in some discomfort. IV access was obtained and laboratory work was drawn. Patient was placed on the securities settlement processor. She was given a DuoNeb treatment. Chest x-ray reveals no focal lung consolidation or failure. EKG reveals no evidence of acute ischemia or ectopy. Laboratory work reveals a normal white blood cell count. The patient has tested negative for influenza. On reevaluation, the patient was concerned about her sinus pressure. She is tender over the right maxillary sinus. She has a history of recurrent sinus infections. The patient will be placed on Augmentin 875 mg twice a day for 10 days. Patient was advised to use Afrin nasal spray as directed for sinus congestion. She will follow-up with her PCP this week for reevaluation and return to the ER for worsening of symptoms or any medical concerns. Medication Reconcilliation Current Medication List: was personally reviewed by me Blood Pressure Screening Patient's blood pressure: Elevated blood pressure Blood pressure disposition: Elevated BP felt to be situational Impression Primary Impression: Sinusitis, acute Additional Impression: Influenza-like symptoms Scribe Attestation The scribe's documentation has been prepared under my direction and personally reviewed by me in its entirety. I confirm that the note above accurately reflects all work, treatment, procedures, and medical decision making performed by me. Departure Information Dispostion Home / Self-Care Prescriptions Tramadol (Ultram) 50 Mg Tab 1 TABS PO Q6 Y for Pain, #14 TAB Prov: Hilda uKmar M.D. 06/20/17 Amoxicillin & Pot Clavulanate (Augmentin 875-125 mg) 1 Tab Tab 875 MG PO BID for 10 Days, #20 TAB Prov: Hilda Kumar M.D. 06/20/17 Referrals Earl Braun M.D. (PCP) Forms HOME CARE DOCUMENTATION FORM, IMPORTANT VISIT INFORMATION Patient Instructions My [facility] Additional Instructions Diagnosis: Right maxillary sinusitis, flulike symptoms Augmentin 875 mg twice daily for 10 days. Tylenol 650 mg every 6 hours as needed for pain or fever. Ultram 50 mg every 6 hours as needed for pain. Do not drive after taking this medication. Drink plenty of clear fluids. Use albuterol inhaler or nebulizer every 4 hours as needed for cough or wheezing. Follow-up with your primary care physician within the next week for reevaluation. Return to the ER for worsening of symptoms or any medical concerns. Problem Qualifiers
[2017-06-20] MEDS ORDERED: SODIUM CHLORIDE 0.9% 500ML 500 ML IV STA (07:16)
[2017-06-20] MEDS ORDERED: TRAMADOL HCL 50 MG TAB PO STA (07:16)
[2017-06-20] MEDS ORDERED: ALBUT/IPRATROP 3MG/0.5MG NEB 3 ML VIAL INH STA (07:16)
[2017-06-20] MEDS ORDERED: ONDANSETRON INJ 2 MG/ML 2 ML VIAL IV STA (07:21)
--- NOTE | 2017-06-20 07:44 | DIAGNOSTIC IMAGING REPORT ---
CHEST ONE VIEW PORTABLE CLINICAL HISTORY: cough, flu like sx dyspnea COMPARISON STUDY: 06/20/2014 FINDINGS: The bones soft tissues and hemidiaphragms are normal. The cardiomediastinal silhouette is normal. The lungs are clear. The pulmonary vasculature is normal. IMPRESSION: Negative chest. The above report was generated using voice recognition software. It may contain grammatical, syntax or spelling errors. Electronically signed by: Aaron Gonzalez M.D. 06/20/2017 7:43 AM Dictated Date/Time: 06/20/2017 7:39 AM
[2017-06-20 07:59] LABS: BASO % 1.1 %; BASO ABS # 0.06 K/uL (0-0.2); EOS % 1.6 %; EOS ABS # 0.09 K/uL (0-0.5); HEMATOCRIT 43.3 % (37-47); HEMOGLOBIN 14.7 g/dL (12.0-16.0); IG# 0.01 K/uL (0.00-0.02); LYMPH % 26.2 %; LYMPH ABS # 1.46 K/uL (1.2-3.4); MEAN CELL VOLUME 89.3 fL (80-100); MEAN CORPUSCULAR HEMOGLOBIN 30.3 pg (25-34); MEAN CORPUSCULAR HGB CONC 33.9 g/dl (32-36); MEAN PLATELET VOLUME 9.7 fL (7.4-10.4); MONO % 9.1 %; MONO ABS # 0.51 K/uL (0.11-0.59); NEUT % 61.8 %; NEUT ABS # 3.45 K/uL (1.4-6.5); PLATELET COUNT 208 K/uL (130-400); RED CELL DISTRIBUTION WIDTH CV 13.9 % (11.5-14.5); RED CELL DISTRIBUTION WIDTH SD 45.2 fL (36.4-46.3); WHITE BLOOD COUNT 5.58 K/uL (4.8-10.8)
[2017-06-20] MEDS ORDERED: CLOR7.5T14 PO (08:05)
[2017-06-20] MEDS ORDERED: ALBU18002 INH (08:05)
[2017-06-20 08:20] LABS: ALT/SGPT 30 U/L (12-78); BLOOD UREA NITROGEN 15 mg/dl (7-18); CALCIUM 9.5 mg/dl (8.5-10.1); CARBON DIOXIDE 24 mmol/L (21-32); CREATININE 1.01 mg/dl (0.60-1.20); GLUCOSE 97 mg/dl (70-99); POTASSIUM 4.2 mmol/L (3.5-5.1); SODIUM 133 mmol/L (136-145)
[2017-06-20 08:23] LABS: ALKALINE PHOSPHATASE 56 U/L (45-117); AST/SGOT 21 U/L (15-37); TOTAL PROTEIN 7.6 gm/dl (6.4-8.2)
[2017-06-20 08:40] VITALS: O2SAT 95
[2017-06-20 08:59] LABS: INFLUENZA B ANTIGEN Neg for Influ B (NEG)
[2017-06-20 10:09] VITALS: BP 184/94; PULSE 81
[2017-06-20] MEDS ORDERED: AMOX875T PO (10:28)
[2017-06-20] MEDS ORDERED: TRAM-10 PO (10:28)
== END 2017-06-20 10:36 | disposition home or self-care (01) ==
LOC: C.EDB 06:55 → C.EDA 10:36
DX: J01.90 Acute sinusitis, unspecified (principal); I48.91 Unspecified atrial fibrillation; J45.909 Unspecified asthma, uncomplicated; E78.5 Hyperlipidemia, unspecified; I10 Essential (primary) hypertension; Z79.01 Long term (current) use of anticoagulants

== ENCOUNTER → 2017-07-04 | Outpatient (CLI) | payer BC ==
[~2017-07-04] MED LIST changes: +ALBU18002 INH; +TRAM-10 PO; -VNTHFA/IN INH
== END | disposition home or self-care (01) ==
LOC: C.LABSPEC 14:03
PROVIDERS: ATTEND Physician Assistant
DX: R35.0 Frequency of micturition (principal)

== ENCOUNTER → 2017-07-18 | Outpatient (CLI) | payer BC | END | disposition home or self-care (01) | LOC: C.LAB 11:42 | PROVIDERS: ATTEND Urology | DX: N39.0 Urinary tract infection, site not specified (principal); R35.0 Frequency of micturition ==

== ENCOUNTER → 2017-07-22 | Outpatient (CLI) | payer BC | LOC: C.RDSM 08:00 | PROVIDERS: ATTEND Physical Medicine & Rehabilitation Sports Medicine | DX: M25.569 Pain in unspecified knee (principal) ==

== ENCOUNTER → 2017-08-05 | Outpatient (CLI) | payer BC ==
--- NOTE | 2017-08-05 15:40 | MAMMOGRAPHY REPORT ---
BILATERAL DIGITAL SCREENING MAMMOGRAM TOMOSYNTHESIS WITH CAD: 08/05/2017 CLINICAL HISTORY: Routine screening. Patient has no complaints. TECHNIQUE: Breast tomosynthesis in addition to standard 2D mammography was performed. Current study was also evaluated with a Computer Aided Detection (CAD) system. COMPARISON: Comparison is made to exams dated: 08/02/2016 mammogram, 05/10/2015 mammogram, 03/18/2014 m ammogram, 03/13/2013 mammogram, 02/26/2012 mammogram, and 10/13/2009 mammogram - [facility]. BREAST COMPOSITION: There are scattered areas of fibroglandular density in both breasts. FINDINGS: There is a newly visualized 4 mm focal asymmetry versus mass in the 9:00 to 10:00 middle o ne third of the left breast, for which additional targeted ultrasound and possible additional mammogr aphic views are recommended. There are benign-appearing rodlike and rim calcifications in the right breast. No other suspicious ma ss, architectural distortion or cluster of microcalcifications is seen. IMPRESSION: ACR BI-RADS CATEGORY 0: INCOMPLETE EVALUATION: NEED ADDITIONAL IMAGING EVALUATION The newly visualized 4 mm focal asymmetry versus mass in the 9:00 to 10:00 left breast needs addition al evaluation. The patient will be called to schedule an appointment. Approximately 10% of breast cancers are not detected with mammography. A negative mammographic report should not delay biopsy if a clinically suggestive mass is present. Crys Grewal M.D. ay/:08/05/2017 14:50:04 Pole Peeling Machine Operator Helper: Sheryl Little, [facility] letter sent: Addl Imaging 0 BI-RADS Code: ACR BI-RADS Category 0: Incomplete Evaluation: Need Additional Imaging Evaluation
== END | disposition home or self-care (01) ==
LOC: C.MAMM 13:49
PROVIDERS: ATTEND Internal Medicine
DX: Z12.31 Encounter for screening mammogram for malignant neoplasm of breast (principal); R92.8 Other abnormal and inconclusive findings on diagnostic imaging of breast

== ENCOUNTER → 2017-08-05 | Outpatient (CLI) | payer BC | END | disposition home or self-care (01) | LOC: C.MAMM 13:49 | PROVIDERS: ATTEND Family Medicine Adult Medicine | DX: M85.89 Other specified disorders of bone density and structure, multiple sites (principal); M85.851 Other specified disorders of bone density and structure, right thigh; M85.852 Other specified disorders of bone density and structure, left thigh ==

== ENCOUNTER → 2017-08-14 | Outpatient (CLI) | payer BC ==
--- NOTE | 2017-08-14 15:38 | MAMMOGRAPHY REPORT ---
ULTRASOUND OF LEFT BREAST: 08/14/2017 CLINICAL HISTORY: Callback from screening mammogram for left breast asymmetry. COMPARISON: Comparison is made to exams dated: 08/02/2016 mammogram, 05/10/2015 mammogram, 03/13/2013 m ammogram, 02/26/2012 mammogram, and 10/13/2009 mammogram - [facility]. TECHNIQUE: Real-time targeted ultrasound of the left breast was performed. FINDINGS: Real-time, high-resolution targeted ultrasound was performed of the left 9 to 10:00 mass in the region of the circumscribed 4 mm mass seen on the recent screening mammogram. In the left 9:30 breast, 6 cm from the nipple, there is a round circumscribed 4 x 4 x 3 mm mass. The mass is predomin antly anechoic and cystic although there is a focal isoechoic intracystic nodule. This corresponds w ith the mammographic mass and could represent a complicated cyst with internal proteinaceous material versus a mixed cystic and solid mass such as a papilloma. Recommend ultrasound-guided aspiration ve rsus biopsy for further evaluation. IMPRESSION: ACR BI-RADS CATEGORY 4: SUSPICIOUS - FOLLOW-UP RECOMMENDED Circumscribed 4 mm anechoic mass with an intracystic nodule in the left 9:30 breast on ultrasound, wh ich corresponds with the new mammographic mass. The mass could represent a complicated cyst versus a mixed cystic and solid mass such as a papilloma. Recommend ultrasound-guided aspiration for further evaluation, with conversion to biopsy if the mass does not completely aspirate. A phone call was made to the physician's office to confirm faxed results were received. The patient was verbally notified of the results. She tentatively scheduled the biopsy before leaving the depart ment. Jodi Kelley M.D. /:08/14/2017 09:54:56 Financial Accountant: Jodi Kelley MD, [facility] letter sent: Abnormal 4/5 BI-RADS Code: ACR BI-RADS Category 4: Suspicious
== END | disposition home or self-care (01) ==
LOC: C.MAMM 09:25
PROVIDERS: ATTEND Internal Medicine
DX: N64.89 Other specified disorders of breast (principal); N63.20 Unspecified lump in the left breast, unspecified quadrant

== ENCOUNTER → 2017-08-16 | Outpatient (CLI) | payer BC ==
--- NOTE | 2017-08-16 14:29 | Discharge Instructions ---
Discharge Instructions Procedure Procedure Date: Aug 16, 2017. Reason for visit: Left Mass. Discharge Discharge Date: Aug 16, 2017. Discharge Diagnosis: status post breast biopsy Instructions Activity Recommendations: Additional Limitations (see below) Return to School/Work: no limitations Recommended Home Diet: No Limitations Provider Instructions: ACTIVITY RECOMMENDATIONS: * No lifting, pushing, pulling or exercising the affected side for three days. RETURN TO SCHOOL/WORK: * You may return to work/school after the procedure, but do not perform any strenuous activities for 24 to 48 hours. MEDICATIONS: * Tylenol (two 325 mg) every four to six hours if needed for mild pain (if not allergic to Tylenol). DIET: * Resume previous diet. SPECIAL CARE INSTRUCTIONS: * Keep biopsy site dry for 24 hours. May shower after 24 hours, but do not soak (bathe) incision. * May remove Tegaderm (plastic patch) tomorrow AFTER showering. * Leave the steri-strips on for one week. Allow the steri-strips to fall off by themselves. If not off after one week, you may remove them. You may place a Bandaid crosswise over the strips, if desired. * Apply ice 10 minutes on and 10 minutes off as needed. * Wear a bra at bedtime to sleep more comfortably for 2-3 days. * Your referring physician should have the results after approximately 5 to 7 business days. * Call for unusual bleeding, fever, drainage, etc or if you have any questions call during normal business hours or after hours call Dr Kelley, . FOLLOW UP VISIT: Follow-up with Referring Physician as scheduled. Allergies Coded Allergies: Sulfamethoxazole w/Trimethoprim (Verified Allergy, Intermediate, RASH, ) Moxifloxacin (Verified Allergy, Unknown, unknown, 06/20/17) POLLEN (Verified Allergy, Unknown, HAY FEVER, 06/20/17) Corticosteroids (Verified Adverse Reaction, Intermediate, BECOMES "EMOTIONAL", 06/20/17) Celecoxib (Verified Adverse Reaction, Unknown, PT STATES SHE DOESN'T TOLERATE, "FELT FAINT", 06/20/17) Ciprofloxacin (Verified Adverse Reaction, Unknown, abdominal pain, 06/20/17 ) Escitalopram (Verified Adverse Reaction, Unknown, dreams, abd pain, ) Montelukast (Verified Adverse Reaction, Unknown, DRY MOUTH, 06/20/17) Paroxetine (Verified Adverse Reaction, Unknown, abd pain, dreams, 06/20/17) Scottie Flynn Recommendations: Call your doctor if: * Temperature above 101 degrees * Pain not relieved by pain medicine ordered * There is increased drainage or redness from any incision * You have any unanswered questions or concerns. Your Doctors Instructions noted above were prepared by provider Jodi Kelley. Patient Signature Section: Patient Instructions Signature Page Sushila Root Patient (or Guardian) Signature/Date: I have read and understand the instructions given to me by my caregivers. Caregiver/RN/Doctor Signature/Date: The above-named patient and/or guardian has received patient instructions on this date. + Original Patient Signature Page (only) stays with chart. Please make copy for patient.
--- NOTE | 2017-08-19 13:56 | MAMMOGRAPHY REPORT ---
ULTRASOUND GUIDED BIOPSY LEFT BREAST: 08/16/2017 CLINICAL HISTORY: Left 930 breast mass. PATIENT CONSENT: The procedure, risks and benefits were discussed with the patient and informed writt en consent was obtained. A timeout was performed immediately prior to the procedure. PROCEDURE DESCRIPTION: After reviewing the images, it was decided to perform biopsy as opposed to asp iration, as the isoechoic nodular component would possibly not be well-visualized after aspiration of the cystic component and therefore biopsy would be difficult. With ultrasound guidance, aseptic moshe hnique, and lidocaine as the local anesthetic (1% lidocaine to anesthetize the skin and 1% lidocaine with epinephrine to anesthetize the deeper tissues), the mass of concern in the left 930 breast was s ampled 3 times with a 14-gauge Achieve biopsy needle. The mass was no longer evident after the sampl es were taken. Immediately thereafter, with ultrasound guidance, aseptic technique, and lidocaine as the local anesthetic, a metallic localizer clip was placed at the biopsy site. Direct pressure was applied to the site immediately post procedure and hemostasis was achieved. Postprocedure unilateral mammograms were performed to confirm clip placement. The patient tolerated the procedure without co mplication. She was given wound care instructions. The specimens were sent to pathology for analysis . COMPARISON: Comparison is made to exams dated: 08/14/2017 ultrasound, 08/05/2017 mammogram, 08/02/2016 [facility] mmogram, 05/10/2015 mammogram, 03/18/2014 mammogram, and 03/13/2013 mammogram - [facility]. IMPRESSION: ULTRASOUND GUIDED BIOPSY Ultrasound-guided core needle biopsy of the left 9:30 breast mass, with clip placement. The patient will receive pathology results from her referring provider. Jodi Kelley M.D. /:08/16/2017 14:32:42 Commercial Electrician: Amanda STILL(Edie)(M), [facility]
--- NOTE | 2017-08-19 13:56 | MAMMOGRAPHY REPORT ---
UNILATERAL LEFT DIGITAL DIAGNOSTIC MAMMOGRAM TOMOSYNTHESIS: 08/16/2017 CLINICAL HISTORY: Status post left breast biopsy. TECHNIQUE: Breast tomosynthesis in addition to standard 2D mammography was performed. Postprocedura l left CC and ML tomosynthesis images were obtained. COMPARISON: Comparison is made to exams dated: 08/14/2017 ultrasound, 08/05/2017 mammogram, 08/02/2016 ma mmogram, 05/10/2015 mammogram, 03/18/2014 mammogram, and 03/13/2013 mammogram - [facility]. BREAST COMPOSITION: There are scattered areas of fibroglandular density in the left breast. FINDINGS: A new biopsy marker clip is seen at the site of the biopsied mass in the left 9:30 breast. No significant postbiopsy hematoma is seen. IMPRESSION: POST PROCEDURE IMAGING FOR MARKER PLACEMENT New biopsy marker clip status post left breast biopsy. Pathology results are pending. Approximately 10% of breast cancers are not detected with mammography. A negative mammographic report should not delay biopsy if a clinically suggestive mass is present. Jodi Kelley M.D. ah/:08/16/2017 14:48:16 Card Assembler: Amanda STILL(Edie)(M), [facility] BI-RADS Code: Post Procedure Imaging For Marker Placement
== END | disposition home or self-care (01) ==
LOC: C.MAMM 13:43
PROVIDERS: ATTEND Internal Medicine
DX: N63.20 Unspecified lump in the left breast, unspecified quadrant (principal)

== ENCOUNTER → 2017-09-09 | Outpatient (CLI) | payer BC | END | disposition home or self-care (01) | LOC: C.LAB 12:36 | PROVIDERS: ATTEND Urology | DX: N39.0 Urinary tract infection, site not specified (principal) ==

== ENCOUNTER → 2018-01-08 | Outpatient (CLI) | payer BC ==
[~2018-01-08] MED LIST changes: -TRAM-10 PO
[2018-01-08 09:34] LABS: BASO % 0.6 %; BASO ABS # 0.04 K/uL (0-0.2); EOS ABS # 0.14 K/uL (0-0.5); HEMATOCRIT 43.8 % (37-47); IG# 0.02 K/uL (0.00-0.02); LYMPH % 35.5 %; LYMPH ABS # 2.43 K/uL (1.2-3.4); MEAN CELL VOLUME 88.8 fL (80-100); MEAN CORPUSCULAR HEMOGLOBIN 30.4 pg (25-34); MEAN CORPUSCULAR HGB CONC 34.2 g/dl (32-36); MEAN PLATELET VOLUME 9.8 fL (7.4-10.4); MONO % 8.3 %; MONO ABS # 0.57 K/uL (0.11-0.59); NEUT % 53.3 %; NEUT ABS # 3.65 K/uL (1.4-6.5); PLATELET COUNT 226 K/uL (130-400); RED CELL DISTRIBUTION WIDTH CV 13.6 % (11.5-14.5); RED CELL DISTRIBUTION WIDTH SD 44.6 fL (36.4-46.3); WHITE BLOOD COUNT 6.85 K/uL (4.8-10.8)
[2018-01-08 09:53] LABS: HEMOGLOBIN A1C 5.8 % (4.5-5.6)
[2018-01-08 10:09] LABS: ALBUMIN 3.8 gm/dl (3.4-5.0); ALKALINE PHOSPHATASE 59 U/L (45-117); ALT/SGPT 26 U/L (12-78); AST/SGOT 14 U/L (15-37); BLOOD UREA NITROGEN 17 mg/dl (7-18); CALCIUM 8.8 mg/dl (8.5-10.1); CARBON DIOXIDE 25 mmol/L (21-32); CHOLESTEROL 126 mg/dl (0-200); CREATININE 1.16 mg/dl (0.60-1.20); GLUCOSE 94 mg/dl (70-99); LDL CHOLESTEROL CALCULATED 54 mg/dl; POTASSIUM 4.3 mmol/L (3.5-5.1); SODIUM 134 mmol/L (136-145); TOTAL PROTEIN 7.3 gm/dl (6.4-8.2)
== END | disposition home or self-care (01) ==
LOC: C.LAB 07:41
PROVIDERS: ATTEND Internal Medicine
DX: Z51.81 Encounter for therapeutic drug level monitoring (principal); J45.909 Unspecified asthma, uncomplicated; I10 Essential (primary) hypertension; R73.03 Prediabetes; I48.0 Paroxysmal atrial fibrillation; Z79.01 Long term (current) use of anticoagulants; E78.5 Hyperlipidemia, unspecified

== ENCOUNTER 2018-07-05 01:31 | Inpatient (IN) ==
[2018-07-05] MEDS ORDERED: ONDANSETRON INJ 2 MG/ML 2 ML VIAL ONE (01:40)
[2018-07-05 02:05] LABS: Hematocrit (blood only) 39.3 % (37-47); Hemoglobin 13.1 g/dL (12.0-16.0); Mean Corpuscular Hgb Conc 33.3 g/dL (32-36); Mean Corpuscular Volume 90.6 fL (80-100); Mean Platelet Volume 10.2 fL (7.4-10.4); Platelet Count 223 K/uL (130-400); RDW Coefficient of Variation 13.5 % (11.5-14.5); RDW Standard Deviation 44.9 fL (36.4-46.3); Red Blood Count 4.34 M/uL (4.2-5.4); White Blood Count 13.16 K/uL (4.8-10.8)
[2018-07-05] MEDS ORDERED: METOCLOPRAMIDE HCL INJ 5 MG/ML 2 ML VIAL ONE (02:12)
[2018-07-05] MEDS ORDERED: METOCLOPRAMIDE HCL INJ 5 MG/ML 2 ML VIAL IV ONE (02:27)
[2018-07-05 02:54] LABS: Alanine Aminotransferase 29 U/L (12-78); Albumin Globulin Ratio 1.3 (0.9-2); Albumin Level 3.8 gm/dl (3.4-5.0); Alkaline Phosphatase 48 U/L (45-117); Aspartate Aminotransferase 25 U/L (15-37); BUN Creatinine Ratio 14.9 (10-20); Bilirubin,Total 0.4 mg/dl (0.2-1); Blood Urea Nitrogen 15 mg/dl (7-18); Calcium 8.3 mg/dl (8.5-10.1); Carbon Dioxide 21 mmol/L (21-32); Chloride 97 mmol/L (98-107); Est GFR (African American) 64.2; Est GFR (Non-African American) 55.4; Globulin 2.9 gm/dl (2.5-4.0); Glucose 140 mg/dl (70-99); Magnesium 2.1 mg/dl (1.8-2.4); Potassium 4.3 mmol/L (3.5-5.1); Sodium 127 mmol/L (136-145); Total Protein 6.7 gm/dl (6.4-8.2); Troponin I < 0.015 ng/ml (0-0.045)
[2018-07-05 03:02] LABS: Basophils # (auto) 0.07 K/uL (0-0.2); Basophils % (auto) 0.5 %; Eosinophils # (auto) 0.22 K/uL (0-0.5); Eosinophils % (auto) 1.7 %; Immature Granulocytes # (auto) 0.03 K/uL (0.00-0.02); Immature Granulocytes % (auto) 0.2 %; Lymphocytes % (auto) 39.5 %; Monocytes # (auto) 0.83 K/uL (0.11-0.59); Monocytes % (auto) 6.3 %; Neutrophils # (auto) 6.81 K/uL (1.4-6.5); Neutrophils % (auto) 51.8 %; RBC Morphology Unremarkable
[2018-07-05] MEDS ORDERED: SODIUM CHLORIDE 0.9% 1000ML 1,000 ML IV ONE (03:09)
--- NOTE | 2018-07-05 04:37 | History & Physical Report ---
Date of Service July 05, 2018 Assessment & Plan (1) Bradycardia: Ms. Root is a 77-year-old female with a history of hypertension, atrial fibrillation, sick sinus syndrome, hyperlipidemia, asthma, osteoarthritis who presents to the emergency department due to a syncopal episode that occurred this evening. Syncope - admit to telemetry for monitoring - ddx: secondary to bradycardia, dehydration, arrhythmia - No concern at this time for ICH - fall precautions Bradycardia - Heart rate upon arrival to the emergency department was 41 - Patient has a history of atrial fibrillation, as well as sick sinus syndrome - EKG without evidence of heart block - Hold home flecainide and nebivolol - Cardiology consult, patient will likely need pacemaker. N.p.o. in case of intervention tomorrow Hyponatremia - sodium level 127 on admission, likely secondary to GI losses. Pt appears dry on exam - NS at 100 mls/hr x2 bags - trend BMP Sick Sinus Syndrome - As above Hyperlipidemia - Continue atorvastatin Hypertension - Continue lisinopril Afib - Anticoagulated with Dabigatran Asthma -No evidence of exacerbation at this time Anxiety - hold home clorazepate dipotassium Code status: Full Disposition: admit to telemetry DVT Prophylaxis: on dabigatran for afib F/E/N: NPO. Sodium 127. NS at 100 mls/hr x 2 bags. (2) SSS (sick sinus syndrome): (3) Hyperlipidemia: (4) Hypertension: (5) Atrial fibrillation with RVR: (6) A-fib: (7) Asthma: (8) Syncope: (9) Anxiety: History of Present Illness Primary Care Provider: Earl Braun MD Ms. Root is a 77-year-old female with a history of hypertension, atrial fibrillation, sick sinus syndrome, hyperlipidemia, asthma, osteoarthritis who presents to the emergency department due to a syncopal episode that occurred this evening. She states that she has been feeling weak for the past day, and that this began after she had broccoli and orange juice. She reports that this made her have frequent bowel movements, as frequent as every 5 minutes. She states that her bowel movements were not completely watery, and denies the presence of blood. With regards to her syncopal episode, it occurred while she was on her way to the washroom to have another bowel movement. She denies any preceding symptoms, such as chest pain, palpitations, lightheadedness, shortness of breath. She denies hitting her head. She denies any nausea or vomiting. She denies fever or chills, or any sick contacts. She states that she lives at home with her son, who called the ambulance. Of note, she is a non-smoker, does not use alcohol or recreational drugs. Allergies Allergy/AdvReac Type Severity Reaction Status Date / Time Bactrim Allergy Intermediate RASH Verified 06/20/17 07:58 sulfamethoxazole Allergy Intermediate RASH Verified 03/27/18 12:35 trimethoprim Allergy Intermediate RASH Verified 03/27/18 12:35 moxifloxacin Allergy Unknown unknown Verified 03/27/18 12:35 pollen extracts Allergy Unknown HAY FEVER Verified 03/27/18 12:35 Corticosteroids AdvReac Intermediate BECOMES Verified 03/27/18 12:35 (Glucocorticoids) "EMOTIONAL" celecoxib AdvReac Unknown PT STATES Verified 03/27/18 12:35 SHE DOESN'T TOLERATE, "FELT FAINT" Cipro AdvReac Unknown abdominal Verified 06/20/17 07:58 pain ciprofloxacin AdvReac Unknown abdominal Verified 03/27/18 12:35 pain escitalopram AdvReac Unknown dreams, Verified 03/27/18 12:35 abd pain montelukast AdvReac Unknown DRY MOUTH Verified 03/27/18 12:35 paroxetine AdvReac Unknown abd pain, Verified 03/27/18 12:35 dreams Home Medications Home Medications Medication Instructions Recorded Confirmed Type acetaminophen [Tylenol Extra 1,000 mg PO Q6H PRN 03/27/18 07/05/18 History Strength] flecainide 100 mg PO BID 03/27/18 07/05/18 History lisinopril 10 mg PO QAM 03/27/18 07/05/18 History simvastatin 40 mg PO HS 03/27/18 07/05/18 History clorazepate dipotassium [Tranxene 7.5 mg PO TID PRN 07/05/18 07/05/18 History T-Tab] dabigatran etexilate [Pradaxa] 150 mg PO BID 07/05/18 07/05/18 History diclofenac sodium 4 g TOPICAL QID 07/05/18 07/05/18 History nebivolol [Bystolic] 5 mg PO BID 07/05/18 07/05/18 History Past Med/Surg History Medical History A-fib (Chronic) Asthma (Chronic) Hypertension Surgical History S/P knee surgery Family History Other Atrial fibrillation Social History Current Living Situation: Family Current Living Situation Comment: lives with son Feels Safe at Home: Yes Safety Concerns: Feels Safe At This Time Smoking Status: Never smoker Second Hand Exposure: No Hx Alcohol Use: No Hx Substance Use: No Beliefs That Will Affect Care: None Preferred Language: Vietnamese Communication Ability: Effective Senior Executive Compensation Analyst Required: No Review of Systems Constitutional: + fatigue and + weakness; no fever and no chills Ear, Nose, Mouth, Throat: + dry mouth and + sore throat; no dizziness Respiratory: no cough and no dyspnea Cardiovascular: + syncope; no chest pain, no palpitations, no lightheadedness and no calf pain Gastrointestinal: + change in bowel habits; no abdominal pain, no nausea, no vomiting and no blood in stools Genitourinary (Female): no dysuria and no hematuria Musculoskeletal: + joint pain (b/l knee pain) Integumentary: no rash and no lesions Neurologic: + generalized weakness Physical Exam 2 Vital Signs (Past 24 Hours): Last Vital Signs Temp 36.7 C 07/05/18 01:34 Pulse 46 L 07/05/18 03:43 Resp 18 07/05/18 03:43 BP 151/71 H 07/05/18 03:43 Pulse Ox 96 07/05/18 03:43 Constitutional: WD/WN, vitals as above cooperative and comfortable Eyes: PERRL, conjunctivae normal, anicteric sclerae ENMT: Mouth: + dry oral mucous membranes Respiratory: Auscultation: lungs clear to auscultation bilaterally and + diminished lung sounds Cardiovascular: Rate/Rhythm: regular rhythm and + bradycardic Heart Sounds : normal S1 and normal S2 Extremities: + pedal edema; no calf tenderness Gastrointestinal (Abdomen): Percussion/Palpation: abdomen soft; abdomen nontender, no guarding and abdomen not rigid Skin: no rashes, warm and dry Neurologic: moves all extremities and awake Results & Data Laboratory Results Laboratory Results - last 24 hr 07/05/18 07/05/18 01:45 01:45 WBC 13.16 H RBC 4.34 Hgb 13.1 Hct 39.3 MCV 90.6 MCH 30.2 MCHC 33.3 RDW Std Deviation 44.9 RDW Coeff of Mery 13.5 Plt Count 223 MPV 10.2 Immature Gran % (Auto) 0.2 Neut % (Auto) 51.8 Lymph % (Auto) 39.5 Gila % (Auto) 6.3 Eos % (Auto) 1.7 Baso % (Auto) 0.5 Immature Gran # (Auto) 0.03 H Neut # (Auto) 6.81 H Lymph # (Auto) 5.20 H Gila # (Auto) 0.83 H Eos # (Auto) 0.22 Baso # (Auto) 0.07 RBC Morphology Unremarkable Sodium 127 L Potassium 4.3 Chloride 97 L Carbon Dioxide 21 Anion Gap 9.0 BUN 15 Creatinine 0.99 Est Cr Clr Drug Dosing Not Reportable Est GFR ( Amer) 64.2 Est GFR (Non-Af Amer) 55.4 BUN/Creatinine Ratio 14.9 Glucose 140 H Calcium 8.3 L Magnesium 2.1 Total Bilirubin 0.4 AST 25 ALT 29 Alkaline Phosphatase 48 Troponin I < 0.015 Total Protein 6.7 Albumin 3.8 Globulin 2.9 Albumin/Globulin Ratio 1.3 TSH 1.440 Specimen Hemolysis Supervising Physician Co-Signing Physician Notes Pt seen/examined in conjunction with resident MD Ambrocio Dominguez. Orders and plan of care formulated with resident. 77 y/o F Hx HTN, AF, sick sinus syndrome, hyperlipidemia, asthma. Presents following a syncopal episode. She had been feeling weak for 2 days. She believes this was precipitated by consumption of broccoli and orange juice which caused her to have diarrhea. On arrival to the ER she was notably bradycardic with an HR in the low 40s. Initial labs were notable for a sodium of 127. It is noted that she suffered the syncopal episode after getting up and she is clinically dehydrated, therefore it is difficult to know if bradycardia played a role or if it was more related to volume depletion. OE AAO x 3 - no distress S1,2 R bradycrdic - soft systolic murmur CTAB NT, ND No CCE No deficits P: Assigned to telemetry. She take Flecainide which has been held, however, half-life can be up to 30 hours. Pacer placement has been dscussed in the past with her sales representative gas service so that we will request a consult. She is anticoagulated with Pradaxa which we have held pending cardio eval She is receiving IVF to correct her Na - BMP will be trended
[2018-07-05] MEDS ORDERED: ACETAMINOPHEN 325 MG TAB PO PRN (05:29)
[2018-07-05] MEDS ORDERED: SODIUM CHLORIDE 0.9% 1000ML 1,000 ML IV SCH (05:29)
[2018-07-05] MEDS ORDERED: ALBUTEROL HFA 8 GM INHALER INH PRN (06:30)
--- NOTE | 2018-07-05 06:34 | XRay Report ---
XR chest 1V portable CLINICAL HISTORY: 77 years-old Female presenting with syncope; kaela. TECHNIQUE: Portable upright AP view of the chest was obtained. COMPARISON: 03/27/2018. FINDINGS: Atherosclerosis of the aortic arch. Cardiac silhouette mildly enlarged. Mild prominence of pulmonary vasculature. Bandlike opacity at the left lung base. Mildly low lung volumes. No large effusion or pn eumothorax. Osseous structures normal. Upper abdomen normal. IMPRESSION: 1. Mild cardiomegaly and possible mild volume overload. 2. Left basilar atelectasis suspected. Electronically signed by: Earl Lloyd M.D. 07/05/2018 6:33 AM
--- NOTE | 2018-07-05 07:43 | Emergency Department Note ---
Entered by Siva Curry acting as a scribe for History of Present Illness General Chief complaint: Weakness Time Seen by Provider: 07/05/18 01:38 Source: patient and EMS History of Present Illness Provider complaint: Weakness Onset (ago): day(s) (1.5) Location: upper extremity and lower extremity Pain Consistency: + other (Worsening) Associated symptoms: + nausea/vomiting, + syncope and + other (Diarrhea, no abdominal pain); no chest pain and no shortness of breath The patient is a 77 year old female who presents to the Emergency Room with complaints of worsening weakness over the past day and a half making it hard for her to ambulate, per EMS. The patient states she did syncopize today while trying to walk to the bathroom. She has also been vomiting and has had multiple episodes of diarrhea. Per EMS, her heart rate was in the 40s en route and her blood pressure was 180s/90s. She has a history of arthritis, hypertension and Afib, which she was just diagnosed with this past March. She received Zofran en route. She denies any chest pain, abdominal pain, and shortness of breath as well as being on any new medications. She sees Dr. Fajardo for cardiology. Home Medications Home Medications Medication Instructions Recorded Confirmed Type acetaminophen [Tylenol Extra 1,000 mg PO Q6H PRN 03/27/18 07/05/18 History Strength] flecainide 100 mg PO BID 03/27/18 07/05/18 History lisinopril 10 mg PO QAM 03/27/18 07/05/18 History simvastatin 40 mg PO HS 03/27/18 07/05/18 History clorazepate dipotassium [Tranxene 7.5 mg PO TID PRN 07/05/18 07/05/18 History T-Tab] dabigatran etexilate [Pradaxa] 150 mg PO BID 07/05/18 07/05/18 History diclofenac sodium 4 g TOPICAL QID 07/05/18 07/05/18 History nebivolol [Bystolic] 5 mg PO BID 07/05/18 07/05/18 History Allergies Allergy/AdvReac Type Severity Reaction Status Date / Time Bactrim Allergy Intermediate RASH Verified 06/20/17 07:58 sulfamethoxazole Allergy Intermediate RASH Verified 03/27/18 12:35 trimethoprim Allergy Intermediate RASH Verified 03/27/18 12:35 moxifloxacin Allergy Unknown unknown Verified 03/27/18 12:35 pollen extracts Allergy Unknown HAY FEVER Verified 03/27/18 12:35 Corticosteroids AdvReac Intermediate BECOMES Verified 03/27/18 12:35 (Glucocorticoids) "EMOTIONAL" celecoxib AdvReac Unknown PT STATES Verified 03/27/18 12:35 SHE DOESN'T TOLERATE, "FELT FAINT" Cipro AdvReac Unknown abdominal Verified 06/20/17 07:58 pain ciprofloxacin AdvReac Unknown abdominal Verified 03/27/18 12:35 pain escitalopram AdvReac Unknown dreams, Verified 03/27/18 12:35 abd pain montelukast AdvReac Unknown DRY MOUTH Verified 03/27/18 12:35 paroxetine AdvReac Unknown abd pain, Verified 03/27/18 12:35 dreams Past Med/Surg History Medical History A-fib (Chronic) Asthma (Chronic) Hypertension Surgical History S/P knee surgery Family History Other Atrial fibrillation Social History Current Living Situation: Family Current Living Situation Comment: lives with son Feels Safe at Home: Yes Safety Concerns: Feels Safe At This Time Smoking Status: Never smoker Second Hand Exposure: No Hx Alcohol Use: No Hx Substance Use: No Beliefs That Will Affect Care: None Preferred Language: Micronesian Communication Ability: Effective Mountain Bike Guide Required: No Review of Systems See HPI for pertinent positives & negatives. and A total of 10 systems reviewed and were otherwise negative Physical Exam Vital Signs Vital Signs - 24 hr 07/05/18 01:34 07/05/18 02:00 07/05/18 02:32 Temperature 36.7 C Temperature Source Oral Sepsis Action Taken by Nursing No Action Required Pulse Rate 41 L Pulse Rate [Right] 39 L 41 L Respiratory Rate 18 18 18 Respiratory Effort / Characteristics Non-Labored Non-Labored Non-Labored Respiratory Depth Normal Normal Normal Respiratory Pattern Blood Pressure 176/85 H Blood Pressure [Left Arm] 154/84 H 163/72 H Blood Pressure Mean 115 Blood Pressure Mean [Left Arm] 107 102 Pulse Oximetry 92 97 97 Oxygen Delivery Method Room Air Nasal Cannula Nasal Cannula Oxygen Flow Rate 2 2 07/05/18 03:01 07/05/18 03:43 07/05/18 04:29 Temperature Temperature Source Sepsis Action Taken by Nursing Pulse Rate 39 L Pulse Rate [Right] 46 L 46 L Respiratory Rate 23 18 17 Respiratory Effort / Characteristics Non-Labored Non-Labored Spontaneous Respiratory Depth Normal Normal Respiratory Pattern Blood Pressure 124/73 Blood Pressure [Left Arm] 151/71 H 132/70 Blood Pressure Mean 90 Blood Pressure Mean [Left Arm] 97 90 Pulse Oximetry 94 96 97 Oxygen Delivery Method Nasal Cannula Nasal Cannula Nasal Cannula Oxygen Flow Rate 2 2 07/05/18 04:31 07/05/18 04:43 07/05/18 05:32 Temperature 36 C L Temperature Source Axillary Sepsis Action Taken by Nursing Pulse Rate 45 L Pulse Rate [Right] 43 L Respiratory Rate 14 17 Respiratory Effort / Characteristics Non-Labored Spontaneous Non-Labored Spontaneous Respiratory Depth Normal Normal Respiratory Pattern Regular Regular Blood Pressure 132/70 Blood Pressure [Left Arm] 164/78 H Blood Pressure Mean Blood Pressure Mean [Left Arm] 106 Pulse Oximetry 97 95 Oxygen Delivery Method Nasal Cannula Nasal Cannula Nasal Cannula Oxygen Flow Rate 2 2 HEENT: Head - normocephalic and atraumatic Pupils are equal, round, and reactive to light. Extraocular eye muscles are intact, and sclera are anicteric. Nose - moist nasal mucosa without discharge. Mouth - moist buccal mucosa. Oropharynx is nonerythematous and there is no tonsillar exudate or edema noted. Neck: Supple; no JVD, nuchal rigidity, cervical lymphadenopathy, or auscultated bruits. Heart: Bradcardic rate and regular rhythm. There is a normal S1 and S2 with no murmurs, clicks, or gallops appreciated. Lungs: Clear to auscultation bilaterally with no wheezes, rales, or rhonchi. Abdomen: Soft, completely nontender, nondistended, with good bowel sounds. There are no palpable pulsatile masses or hepatosplenomegaly. There is no guarding, rigidity, or rebound noted. Extremities: No evidence of cyanosis, clubbing, or edema. There are easily palpable peripheral pulses. Skin: warm, diaphoretic, and dry with good turgor and no rashes. Course 0132: Past medical records reviewed. The patient was evaluated in room A01, and a complete history and physical examination were performed. 0227: The patient continues to be bradycardic but her blood pressure was normal. I ordered Reglan 5mg IV for nausea. 0309: The patient was noted to be hyponatremic and I ordered Sodium Chloride 1000mls @ 999mls/hr IV 0311: I spoke to Dr. Lindo [facility] Hospitalist about the patient's case and he is going to accept the patient for further evaluation. 0320: I reevaluated the patient and updated her on results. We also discussed the treatment plan for her. Consultations Consultation #1: I spoke to Dr. Lindo [facility] Hospitalist about the patient's case and he is going to accept the patient for further evaluation. Time: 03:11 Administered Medications Sodium Chloride (Nss 1000ml) 1,000 mls @ 100 mls/hr IV .Q10H ADAM Stop: 07/06/18 01:28 Last Admin: 07/05/18 06:22 Dose: 100 mls/hr Discontinued Medications Sodium Chloride (Nss 1000ml) 1,000 mls @ 999 mls/hr IV .Q1H1M ONE Stop: 07/05/18 04:09 Last Infusion: 07/05/18 04:29 Dose: 0 mls/hr Admin: 07/05/18 03:23 Dose: 999 mls/hr Metoclopramide HCl (Reglan) Confirm Administered Dose 10 mg .ROUTE .STK-MED ONE Stop: 07/05/18 02:13 Last Admin: 07/05/18 02:27 Dose: 5 mg Metoclopramide HCl (Reglan) 5 mg IV ONE ONE Stop: 07/05/18 02:28 Last Admin: 07/05/18 02:30 Dose: Not Given Medical Decision Making Differential Diagnosis The patient is a 77 year old female who presents to the ED with worsening weakness that started a day and a half ago. Differential diagnosis includes medication overdose, cardiac dysrhythmia, cardiac ischemia, and electrolyte abnormalities, amongst others. Medical Records Attestation: I reviewed the patient's medical records. Home Medications Current Medication List: was personally reviewed by me Laboratory Data Attestation: I reviewed the patient's lab results. Result diagrams: 07/05/18 01:45 07/05/18 01:45 Lab Results 07/05/18 07/05/18 Range/Units 01:45 01:45 WBC 13.16 H (4.8-10.8) K/uL RBC 4.34 (4.2-5.4) M/uL Hgb 13.1 (12.0-16.0) g/dL Hct 39.3 (37-47) % MCV 90.6 (80-100) fL MCH 30.2 (25-34) pg MCHC 33.3 (32-36) g/dL RDW Std Deviation 44.9 (36.4-46.3) fL RDW Coeff of Mery 13.5 (11.5-14.5) % Plt Count 223 (130-400) K/uL MPV 10.2 (7.4-10.4) fL Immature Gran % (Auto) 0.2 % Neut % (Auto) 51.8 % Lymph % (Auto) 39.5 % [place] % (Auto) 6.3 % Eos % (Auto) 1.7 % Baso % (Auto) 0.5 % Immature Gran # (Auto) 0.03 H (0.00-0.02) K/uL Neut # (Auto) 6.81 H (1.4-6.5) K/uL Lymph # (Auto) 5.20 H (1.2-3.4) K/uL [place] # (Auto) 0.83 H (0.11-0.59) K/uL Eos # (Auto) 0.22 (0-0.5) K/uL Baso # (Auto) 0.07 (0-0.2) K/uL RBC Morphology Unremarkable Sodium 127 L (136-145) mmol/L Potassium 4.3 (3.5-5.1) mmol/L Chloride 97 L (98-107) mmol/L Carbon Dioxide 21 (21-32) mmol/L Anion Gap 9.0 (3-11) BUN 15 (7-18) mg/dl Creatinine 0.99 (0.6-1.2) mg/dl Est Cr Clr Drug Dosing Not Reportable Est GFR ( Amer) 64.2 Est GFR (Non-Af Amer) 55.4 BUN/Creatinine Ratio 14.9 (10-20) Glucose 140 H (70-99) mg/dl Calcium 8.3 L (8.5-10.1) mg/dl Magnesium 2.1 (1.8-2.4) mg/dl Total Bilirubin 0.4 (0.2-1) mg/dl AST 25 (15-37) U/L ALT 29 (12-78) U/L Alkaline Phosphatase 48 (45-117) U/L Troponin I < 0.015 (0-0.045) ng/ml Total Protein 6.7 (6.4-8.2) gm/dl Albumin 3.8 (3.4-5.0) gm/dl Globulin 2.9 (2.5-4.0) gm/dl Albumin/Globulin Ratio 1.3 (0.9-2) TSH 1.440 (0.300-4.500) uIu/ml Specimen Hemolysis Imaging Data Attestation: I personally reviewed and interpreted this imaging study as follows : My Impression: CXR 1V: Borderline cardiomegaly, no obvious pulmonary infiltrates. ECG Data Attestation: I personally reviewed and interpreted this ECG as follows: Indication: weakness Rate (beats per minute): 38 Rhythm: junctional (Bradycardia) Findings: no PAC, no PVC and no acute ischemic change Blood Pressure Blood Pressure Findings: Elevated blood pressure Blood Pressure Disposition: further management by hospitalist TIERA Narrative The patient is a 77 year old female who presents to the ED with worsening weakness that started a day and a half ago. The patient is resting comfortably at this time. She is bradycardic but has a normal blood pressure. The patient has had vomiting and diarrhea with associated hyponatremia. The patient also takes flecainide. I believe this is a combination of issues which has caused her bradycardia. She is otherwise Hemodynamically stable at this time. I discussed the case with the [facility] Hospitalist and they will evaluate for further management. Impression & Plan Bradycardia, Acute hyponatremia Critical Care Time I have personally spent greater than 30 minutes of critical care time in the direct management of this patient. This includes bedside care, interpretation of diagnostic studies, and testing, discussion with consultants, patient, and family members, and other required patient management activities. This 30 minutes is in excess of all separately billable procedures. Critical Care Time: Yes Total Critical Care Time: 30 Discharge Plan Visit Data *Final* Discharge Date/Time: 07/05/18 04:31 Chief Complaint: Weakness ED Provider: Monica Haro Discharge Problem: Bradycardia, Acute hyponatremia Patient Disposition: Admitted As Inpatient Discharge Instructions Interventions: ED Discharge Assessment Last Done: 07/05/18 04:31 The scribe's documentation has been prepared under my direction and personally reviewed by me in its entirety. I confirm that the note above accurately reflects all work, treatment, procedures, and medical decision making performed by me.
[2018-07-05] MEDS: DICLOFENAC SOD 1% GEL 100 GM TUBE EXT SCH ×4 (08:59→20:40)
[2018-07-05] MEDS ORDERED: LISINOPRIL 10 MG TAB PO SCH (09:00)
[2018-07-05] MEDS ORDERED: DABIGATRAN ETEXILATE 150 MG PO SCH (09:00)
--- NOTE | 2018-07-05 09:12 | Cardiology Consultation ---
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 Pradaxa has been held. Consider starting heparin later today if no contraindications. Agree with discontinuation of beta-mesha. Her asset recovery specialist, Dr. Fajardo has been notified of her presentation so that he can make arrangements as appropriate for pacemaker placement. She has transcutaneous pacing pads in place, if necessary. Would not recommend transvenous temporary pacemaker at this time. Complete bed rest (discussed with nursing staff). (2) Syncope: Likely secondary to junctional bradycardia, sinus node dysfunction. Recommend pacemaker placement as above if electrophysiology is in agreement. (3) SSS (sick sinus syndrome): Plan as above for possible pacemaker placement on Saturday. NPO after midnight on Saturday. (4) A-fib: Has a history of atrial fibrillation with rapid ventricular response. Has been junctional bradycardia here with likely ectopic atrial rhythm as well intermittently. Pradaxa has been held for anticipation of pacemaker. Recommend heparin drip. (5) Junctional bradycardia: Plan as above. (6) Hyponatremia: Etiology uncertain. She also has a mild leukocytosis. This was discussed with Dr. Ortiz of the primary hospitalist service. Will defer evaluation/treatment to him. Disposition: Cardiology will continue to follow. Please call with any other questions or concerns. Highly complex medical issues. Thank you for allowing me to participate in the care of your patient. Please call for any other questions or concerns. Sincerely, Nabil Eckert M.D. History of Present Illness Reason for Consultation: Syncope and bradycardia Requesting Physician: Dr. Lindo Attending Physician: Agustin Ortiz MD, PhD, [facility] History of Present Illness Ms. 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 Her primary product line manager is Dr. Fajardo. She called the on-call cardiology service last evening to report that her heart rate had been slow throughout the day. The number provided by the answering service was called multiple times in attempt to discuss this with her, but unfortunately, the provided number was incorrect. Yesterday, she felt very tired/exhausted in the early afternoon and took a nap. Her son, Pio, who is present at the bedside, states that it is typical for her to take a nap but she felt more exhausted than usual. She checked her blood pressure and heart rate often throughout the day and noted that her heart rate was in the low 40s. She exercised by moving her legs and recheck to heart rate and increased to the mid 40s. Normally her heart rate is 55-60 at rest. Her blood pressure had been normal throughout the day. Very early this morning, approximately 1:00 a.m., she was out of bed and Pio heard her calling for help. She was near syncopal. He was able to help her to the ground so that she did not have a traumatic fall. She did lose consciousness for short period of time. Pio estimates that it up to 1 minute in duration but she never stopped breathing. She also had a few episodes of vomiting last night but no diarrhea, abdominal pain, melena, hematochezia, hematuria, or other bleeding. She has not had any chest pain, shortness of breath, fevers or chills. She believes that her ankles were swollen more than usual for the past few days. She took Bystolic 2.5 mg last evening, which is her home dose. Review of systems: As above. Review of systems otherwise negative/ unremarkable. Social history: She denies tobacco, alcohol, or drug abuse. She is a . She has a daughter who lives in [place]. Her son, Pio, lives with her. Pio is present at the bedside. Family history: Mother had a pacemaker. Please note: Her home dose of Bystolic is 2.5 mg daily which was confirmed with her and also the office chart from which her prescription is managed. The below listed dose is not correct. Past medical history: 1. Paroxysmal atrial fibrillation 2. Junctional bradycardia 3. Tachy-kaela syndrome 4. Sinus node dysfunction 5. Hypertension 6. Dyslipidemia 7. Non severe mitral regurgitation Allergies Allergy/AdvReac Type Severity Reaction Status Date / Time Bactrim Allergy Intermediate RASH Verified 06/20/17 07:58 sulfamethoxazole Allergy Intermediate RASH Verified 03/27/18 12:35 trimethoprim Allergy Intermediate RASH Verified 03/27/18 12:35 moxifloxacin Allergy Unknown unknown Verified 03/27/18 12:35 pollen extracts Allergy Unknown HAY FEVER Verified 03/27/18 12:35 Corticosteroids AdvReac Intermediate BECOMES Verified 03/27/18 12:35 (Glucocorticoids) "EMOTIONAL" celecoxib AdvReac Unknown PT STATES Verified 03/27/18 12:35 SHE DOESN'T TOLERATE, "FELT FAINT" Cipro AdvReac Unknown abdominal Verified 06/20/17 07:58 pain ciprofloxacin AdvReac Unknown abdominal Verified 03/27/18 12:35 pain escitalopram AdvReac Unknown dreams, Verified 03/27/18 12:35 abd pain montelukast AdvReac Unknown DRY MOUTH Verified 03/27/18 12:35 paroxetine AdvReac Unknown abd pain, Verified 03/27/18 12:35 dreams Home Medications Home Medications Medication Instructions Recorded Confirmed Type acetaminophen [Tylenol Extra 1,000 mg PO Q6H PRN 03/27/18 07/05/18 History Strength] flecainide 100 mg PO BID 03/27/18 07/05/18 History lisinopril 10 mg PO QAM 03/27/18 07/05/18 History simvastatin 40 mg PO HS 03/27/18 07/05/18 History clorazepate dipotassium [Tranxene 7.5 mg PO TID PRN 07/05/18 07/05/18 History T-Tab] dabigatran etexilate [Pradaxa] 150 mg PO BID 07/05/18 07/05/18 History diclofenac sodium 4 g TOPICAL QID 07/05/18 07/05/18 History nebivolol [Bystolic] 5 mg PO BID 07/05/18 07/05/18 History Patient History Medical History A-fib (Chronic) Asthma (Chronic) Hypertension Surgical History S/P knee surgery Family History Other Atrial fibrillation Social History Current Living Situation: Family Current Living Situation Comment: lives with son Feels Safe at Home: Yes Safety Concerns: Feels Safe At This Time Smoking Status: Never smoker Second Hand Exposure: No Hx Alcohol Use: No Hx Substance Use: No Beliefs That Will Affect Care: None Preferred Language: Samoan Communication Ability: Effective Front Office Representative Required: No Physical Exam 2 Vital Signs (Past 24 Hours): Last Vital Signs Temp 36 C L 07/05/18 04:43 Pulse 44 L 07/05/18 07:41 Resp 17 07/05/18 04:43 BP 164/78 H 07/05/18 04:43 Pulse Ox 95 07/05/18 04:43 Physical Exam: Gen.: No acute distress. Alert and oriented. HEENT: Anicteric sclera. Neck: No JVD. No bruits. Normal carotid upstrokes bilaterally. Cardiac: PMI was nondisplaced. No ventricular heave. Bradycardic but regular. Normal S1-S2. No murmurs, rubs, or gallops. Pulmonary: Clear to auscultation bilaterally without wheezes, rales, or rhonchi. Abdomen: Soft, nontender, nondistended, with normoactive bowel sounds. No bruits noted. Extremities: 2+ radial pulses bilaterally. 2+ posterior tibialis pulses bilaterally. No pitting edema or cyanosis. Psychiatric: Affect appears appropriate. Results & Data Laboratory Results Laboratory Results - last 24 hr 07/05/18 07/05/18 01:45 01:45 WBC 13.16 H RBC 4.34 Hgb 13.1 Hct 39.3 MCV 90.6 MCH 30.2 MCHC 33.3 RDW Std Deviation 44.9 RDW Coeff of Mery 13.5 Plt Count 223 MPV 10.2 Immature Gran % (Auto) 0.2 Neut % (Auto) 51.8 Lymph % (Auto) 39.5 [place] % (Auto) 6.3 Eos % (Auto) 1.7 Baso % (Auto) 0.5 Immature Gran # (Auto) 0.03 H Neut # (Auto) 6.81 H Lymph # (Auto) 5.20 H [place] # (Auto) 0.83 H Eos # (Auto) 0.22 Baso # (Auto) 0.07 RBC Morphology Unremarkable Sodium 127 L Potassium 4.3 Chloride 97 L Carbon Dioxide 21 Anion Gap 9.0 BUN 15 Creatinine 0.99 Est Cr Clr Drug Dosing Not Reportable Est GFR ( Amer) 64.2 Est GFR (Non-Af Amer) 55.4 BUN/Creatinine Ratio 14.9 Glucose 140 H Calcium 8.3 L Magnesium 2.1 Total Bilirubin 0.4 AST 25 ALT 29 Alkaline Phosphatase 48 Troponin I < 0.015 Total Protein 6.7 Albumin 3.8 Globulin 2.9 Albumin/Globulin Ratio 1.3 TSH 1.440 Specimen Hemolysis Diagnostic Findings ECG personally reviewed: ECG 07/05/2018 at 1:36 a.m.: Junctional bradycardia 38 bpm. Telemetry personally reviewed: Junctional bradycardia and also likely ectopic atrial bradycardia. There was a 5.1 second pause at 3:10 a.m. and a 5.7 second pause at 5:37 a.m. while the patient was sleeping on both occasions. Chest x-ray 07/05/2018: Mild prominence of pulmonary vasculature per Radiology. Echo 01/14/2018: Normal LV systolic function and wall motion. EF 55-60%. Mild LVH. Type 1 diastolic dysfunction. Mild MR. Medications Administered Current Inpatient Medications Acetaminophen (Tylenol) 650 mg PO Q4H PRN PRN Reason: Pain or Fever Stop: 08/04/18 05:28 Albuterol (Ventolin Hfa) 2 puffs INH QID PRN PRN Reason: Shortness Of Breath Or Wheezing Stop: 08/04/18 08:59 Diclofenac Sodium (Voltaren 1% Top) 1 appln EXT QID [facility] Stop: 08/04/18 08:59 Last Admin: 07/05/18 08:59 Dose: 1 appln Sodium Chloride (Nss 1000ml) 1,000 mls @ 100 mls/hr IV .Q10H ADAM Stop: 07/06/18 01:28 Last Admin: 07/05/18 06:22 Dose: 100 mls/hr Lisinopril (Zestril) 10 mg PO QAM [facility] Stop: 08/04/18 08:59 Last Admin: 07/05/18 08:57 Dose: 10 mg Simvastatin (Zocor) 40 mg PO HS [facility] Stop: 08/04/18 20:59
[2018-07-05 14:44] LABS: Appearance Urine Clear (Clear); Bilirubin Urine Negative (Negative); Color Urine Yellow; Glucose Urine UA Negative (Negative); Ketones Urine Trace (Negative); Leukocyte Esterase Urine Negative (Negative); Nitrite Urine Negative (Negative); Protein Urine Negative (Negative); Specific Gravity Urine 1.014 (1.000-1.030); Urobilinogen Urine Negative (Negative); pH Urine 6.5 (4.5-7.5)
--- NOTE | 2018-07-05 15:48 | Hospitalist Progress Note ---
Date of Service July 05, 2018 Assessment & Plan (1) Bradycardia: (2) SSS (sick sinus syndrome): (3) Hyperlipidemia: (4) Hypertension: (5) Atrial fibrillation with RVR: (6) A-fib: (7) Asthma: (8) Syncope: (9) Anxiety: 77-year-old female with a history of hypertension, atrial fibrillation, sick sinus syndrome, hyperlipidemia, asthma, osteoarthritis admitted because of syncopal episode secondary to bradycardia, Bradycardia: History of sick sinus syndrome, tachybradycardia Continue telemetry, cardiology input appreciated, Discontinue flecainide and nebivolol, no beta-mesha, fall precautions Bedside pacer Cardiology consult, patient will likely need pacemaker. I have started because patient will planning for Saturday for permanent pacemaker Pradaxa has been on hold, will switch over to heparin drip, and will stop drip 6 hours prior to pacemaker placement on Saturday Moderate hyponatremia with sodium 127, etiology unknown, continue IV fluid, follow-up morning lab Asthma, anxiety, hyperlipidemia hypertension, will continue current treatment Mild leukocytosis check UA which was negative Code status: Full GI DVT prophylaxis covered Subjective Generalized weakness, otherwise no complaint, Denies dizziness denies chest pain Review of Systems Constitutional: negative weakness, or fatigue Respiratory: no cough, sputum, wheezing, or dyspnea on exertion Cardiac: No chest pain, No orthopnea, No PND, No claudication, No palpitations , Abdomen: No pain, No nausea, No vomiting, No diarrhea, No constipation, No GI bleeding Musculoskeletal: No joint pain, No muscle pain, No swelling, No calf pain, No problem reported : No dysuria, No urinary frequency, No incontinence, No hematuria Neurologic: No paralysis, No weakness, No numbness/tingling, Psychiatric: No depression symptoms, No anhedonism, No anxiety, No insomnia, No substance abuse Heme: No abnormal bleeding/bruising, No clotting problems, No swollen lymph nodes, No night sweats Skin: No rash, No itch, No new/changing skin lesions, No color change, No bleeding Physical Exam 2 Vital Signs (Past 24 Hours): Last Vital Signs Temp 36.6 C 07/05/18 13:35 Pulse 45 L 07/05/18 13:35 Resp 16 07/05/18 13:35 BP 184/93 H 07/05/18 13:35 Pulse Ox 97 07/05/18 13:35 Physical Exam: General Appearance: WD/WN, no apparent distress, Eyes: normal inspection, PERRL, EOMI, sclerae normal ENT: normal ENT inspection, hearing grossly normal, pharynx normal Neck: supple, no adenopathy, thyroid normal, no JVD, no carotid bruits, trachea midline Respiratory/Chest: chest non-tender, normal breath sounds, no respiratory distress, no accessory muscle use, breath sounds, rales, wheezing Cardiovascular: Bradycardia regular rate, rhythm, no JVD, no murmur Abdomen: normal bowel sounds, non tender, soft, no organomegaly, Extremities: normal range of motion, non-tender, normal inspection, no pedal edema, no calf tenderness, normal capillary refill , pelvis stable, joint has no limited range of motion, capillary refill is normal, no cyanosis clubbing Neurologic/Psychiatric: sr. operations manager II-XII nml as tested, no motor/sensory deficits, alert, normal mood/affect, oriented x 3 Skin: normal color, warm/dry, no rash Lymphatic: no adenopathy Results & Data Laboratory Results Laboratory Results - last 24 hr 07/05/18 07/05/18 07/05/18 01:45 01:45 13:00 WBC 13.16 H RBC 4.34 Hgb 13.1 Hct 39.3 MCV 90.6 MCH 30.2 MCHC 33.3 RDW Std Deviation 44.9 RDW Coeff of Mery 13.5 Plt Count 223 MPV 10.2 Immature Gran % (Auto) 0.2 Neut % (Auto) 51.8 Lymph % (Auto) 39.5 [place] % (Auto) 6.3 Eos % (Auto) 1.7 Baso % (Auto) 0.5 Immature Gran # (Auto) 0.03 H Neut # (Auto) 6.81 H Lymph # (Auto) 5.20 H [place] # (Auto) 0.83 H Eos # (Auto) 0.22 Baso # (Auto) 0.07 RBC Morphology Unremarkable Sodium 127 L Potassium 4.3 Chloride 97 L Carbon Dioxide 21 Anion Gap 9.0 BUN 15 Creatinine 0.99 Est Cr Clr Drug Dosing Not Reportable Est GFR ( Amer) 64.2 Est GFR (Non-Af Amer) 55.4 BUN/Creatinine Ratio 14.9 Glucose 140 H Calcium 8.3 L Magnesium 2.1 Total Bilirubin 0.4 AST 25 ALT 29 Alkaline Phosphatase 48 Troponin I < 0.015 Total Protein 6.7 Albumin 3.8 Globulin 2.9 Albumin/Globulin Ratio 1.3 TSH 1.440 Specimen Hemolysis Urine Color Yellow Urine Appearance Clear Urine pH 6.5 Ur Specific [place] 1.014 Urine Protein Negative Urine Glucose (UA) Negative Urine Ketones Trace H Urine Blood Negative Urine Nitrite Negative Urine Bilirubin Negative Urine Urobilinogen Negative Ur Leukocyte Esterase Negative
[2018-07-05] MEDS: SIMVASTATIN 40 MG TAB PO SCH (20:41)
[2018-07-05] MEDS ORDERED: SODIUM CHLORIDE 0.65% NA SOLN 45 ML (OCEAN) STA (23:04)
[2018-07-06 06:51] LABS: Basophils # (auto) 0.02 K/uL (0-0.2); Basophils % (auto) 0.2 %; Eosinophils # (auto) 0.05 K/uL (0-0.5); Eosinophils % (auto) 0.5 %; Hematocrit (blood only) 39.5 % (37-47); Hemoglobin 13.3 g/dL (12.0-16.0); Immature Granulocytes # (auto) 0.02 K/uL (0.00-0.02); Immature Granulocytes % (auto) 0.2 %; Lymphocytes # (auto) 1.37 K/uL (1.2-3.4); Lymphocytes % (auto) 14.5 %; Mean Corpuscular Hgb Conc 33.7 g/dL (32-36); Mean Corpuscular Volume 89.4 fL (80-100); Mean Platelet Volume 9.9 fL (7.4-10.4); Monocytes # (auto) 0.72 K/uL (0.11-0.59); Monocytes % (auto) 7.6 %; Platelet Count 186 K/uL (130-400); RDW Coefficient of Variation 13.4 % (11.5-14.5); RDW Standard Deviation 44.1 fL (36.4-46.3); Red Blood Count 4.42 M/uL (4.2-5.4); White Blood Count 9.48 K/uL (4.8-10.8)
[2018-07-06 07:15] LABS: BUN Creatinine Ratio 13.7 (10-20); Calcium 8.8 mg/dl (8.5-10.1); Creatinine Clr Calc Pharmacy 58.2 ml/min; Est GFR (African American) 80.6; Est GFR (Non-African American) 69.5; Phosphorus 2.3 mg/dl (2.5-4.9); Potassium 3.9 mmol/L (3.5-5.1)
[2018-07-06] MEDS: DICLOFENAC SOD 1% GEL 100 GM TUBE EXT SCH ×4 (08:00→19:28)
[2018-07-06] MEDS: LISINOPRIL 20 MG TAB PO SCH (08:00)
[2018-07-06] MEDS: ACETAMINOPHEN 325 MG TAB PO PRN ×2 (11:04→15:28)
--- NOTE | 2018-07-06 13:56 | Cardiology Progress Note ---
Date of Service July 06, 2018 Assessment & Plan (1) Sinus node dysfunction: With syncopal episode and pauses on telemetry of 5.1 and 5.7 seconds, with history of atrial fibrillation with rapid ventricular response, recommend pacemaker placement for tachy-kaela syndrome and syncope. Pradaxa has been held. Beta-mesha has been held. Flecainide was discontinued by hospitalist service and she is now in atrial fibrillation, but fortunate while in atrial fibrillation, her heart rate has not been slow. Her information operator, Dr. Fajardo has been notified of her presentation so that he can make arrangements as appropriate for pacemaker placement. She has transcutaneous pacing pads in place, if necessary. (2) Syncope: Likely secondary to junctional bradycardia, sinus node dysfunction. Recommend pacemaker placement as above if electrophysiology is in agreement. (3) SSS (sick sinus syndrome): Plan as above for possible pacemaker placement on Saturday. NPO after midnight on Saturday. (4) A-fib: Has a history of atrial fibrillation with rapid ventricular response. While off of flecainide and beta-mesha, as discontinued by primary service, she is now in atrial fibrillation. She is asymptomatic. Pradaxa has been held for anticipation of pacemaker. Recommend heparin drip. (5) Junctional bradycardia: Plan as above. (6) Hyponatremia: Sodium level has improved. Disposition: Cardiology will continue to follow. Her primary pest control service representative, Dr. Fajardo, will resume her care tomorrow. NPO after midnight for possible pacemaker placement. Subjective She denies chest pain, shortness of breath, syncope, near-syncope, palpitations , or edema. She inquired about pacemaker placement tomorrow. She was assured that Dr. Fajardo is aware of her presentation and that he is arranging for appropriate care. Review of systems: As above. Physical Exam 2 Vital Signs (Past 24 Hours): Last Vital Signs Temp 37.1 C 07/06/18 12:19 Pulse 73 07/06/18 12:19 Resp 18 07/06/18 12:19 BP 173/99 H 07/06/18 12:19 Pulse Ox 94 07/06/18 12:19 Physical Exam: Gen.: No acute distress. Alert and oriented. HEENT: Anicteric sclera. Neck: No JVD. Cardiac: Irregularly irregular. Normal S1-S2. 1/6 systolic murmur. No rubs, or gallops. Pulmonary: Bibasilar crackles. Abdomen: Soft, nontender, nondistended, with normoactive bowel sounds. No bruits noted. Extremities: No edema or cyanosis. Psychiatric: Affect appears appropriate. Results & Data Laboratory Results Laboratory Results - last 24 hr 07/05/18 07/06/18 07/06/18 13:00 06:38 06:38 WBC 9.48 RBC 4.42 Hgb 13.3 Hct 39.5 MCV 89.4 MCH 30.1 MCHC 33.7 RDW Std Deviation 44.1 RDW Coeff of Mery 13.4 Plt Count 186 MPV 9.9 Immature Gran % (Auto) 0.2 Neut % (Auto) 77.0 Lymph % (Auto) 14.5 [place] % (Auto) 7.6 Eos % (Auto) 0.5 Baso % (Auto) 0.2 Immature Gran # (Auto) 0.02 Neut # (Auto) 7.30 H Lymph # (Auto) 1.37 [place] # (Auto) 0.72 H Eos # (Auto) 0.05 Baso # (Auto) 0.02 Sodium 133 L Potassium 3.9 Chloride 103 Carbon Dioxide 26 Anion Gap 4.0 BUN 11 Creatinine 0.82 Est Cr Clr Drug Dosing 58.2 Est GFR ( Amer) 80.6 Est GFR (Non-Af Amer) 69.5 BUN/Creatinine Ratio 13.7 Glucose 95 Calcium 8.8 Phosphorus 2.3 L Magnesium 2.0 Urine Color Yellow Urine Appearance Clear Urine pH 6.5 Ur Specific [place] 1.014 Urine Protein Negative Urine Glucose (UA) Negative Urine Ketones Trace H Urine Blood Negative Urine Nitrite Negative Urine Bilirubin Negative Urine Urobilinogen Negative Ur Leukocyte Esterase Negative Diagnostic Findings Telemetry personally reviewed: Developed atrial fibrillation at 8:58 a.m. this morning and remains in atrial fibrillation. Heart rate is reasonable to mildly tachycardic at times. No further significant pauses. Medications Administered Current Inpatient Medications Acetaminophen (Tylenol) 650 mg PO Q4H PRN PRN Reason: Pain Stop: 08/04/18 10:43 Last Admin: 07/06/18 11:04 Dose: 650 mg Albuterol (Ventolin Hfa) 2 puffs INH QID PRN PRN Reason: Shortness Of Breath Or Wheezing Stop: 08/04/18 08:59 Diclofenac Sodium (Voltaren 1% Top) 1 appln EXT QID [facility] Stop: 08/04/18 08:59 Last Admin: 07/06/18 13:40 Dose: 1 appln Heparin Sodium/Dextrose () 1 ea IV Q15M [facility]; Protocol Stop: 07/06/18 15:16 Lisinopril (Zestril) 20 mg PO QAM [facility] Stop: 08/05/18 08:59 Last Admin: 07/06/18 08:00 Dose: 20 mg Miconazole Nitrate (Monistat Derm) 1 appln EXT BID [facility] Stop: 08/05/18 20:59 Simvastatin (Zocor) 40 mg PO HS [facility] Stop: 08/04/18 20:59 Last Admin: 07/05/18 20:41 Dose: 40 mg
[2018-07-06] MEDS ORDERED: HEPARIN SODIUM/DEXTROSE 25,000 UNITS/500 ML BAG IV SCH ×2 (14:15→23:48)
[2018-07-06] MEDS ORDERED: HEPARIN IV BOLUS 5,000 UNITS in SYRINGE 0 ML IV ONE (14:15)
--- NOTE | 2018-07-06 16:23 | Hospitalist Progress Note ---
Date of Service July 06, 2018 Assessment & Plan (1) Bradycardia: (2) SSS (sick sinus syndrome): (3) Hyperlipidemia: (4) Hypertension: (5) Atrial fibrillation with RVR: (6) A-fib: (7) Asthma: (8) Syncope: (9) Anxiety: 77-year-old female with a history of hypertension, atrial fibrillation, sick sinus syndrome, hyperlipidemia, asthma, osteoarthritis admitted because of syncopal episode secondary to bradycardia, syncope, pauses and bradycardia: syncopal episode and pauses on telemetry of 5.1 and 5.7 seconds, History of sick sinus syndrome, tachybradycardia Continue telemetry, cardiology input appreciated, Discontinue flecainide and nebivolol, no beta-mesha, fall precautions Bedside transcutaneous pacer as needed N.p.o. midnight tonight for possible Saturday for permanent pacemaker Pradaxa has been on hold, continue heparin drip, and will stop drip 6 hours prior to pacemaker placement on Saturday, Or, I will have RN to communication with can marker for the best time to stop aspirin Moderate hyponatremia with sodium 127 upon admission, etiology unknown, Improved after gentle IV fluid Asthma, anxiety, hyperlipidemia hypertension, will continue current treatment Mild leukocytosis checked UA which was negative Code status: Full GI DVT prophylaxis covered Subjective Doing generally okay, denied syncope Denies dizziness denies chest pain She did report perineal area is burning sensation /itching Review of Systems Constitutional: negative weakness, or fatigue Respiratory: no cough, sputum, wheezing, or dyspnea on exertion Cardiac: No chest pain, No orthopnea, No PND, No claudication, No palpitations , Abdomen: No pain, No nausea, No vomiting, No diarrhea, No constipation, No GI bleeding Musculoskeletal: No joint pain, No muscle pain, No swelling, No calf pain, No problem reported : No dysuria, No urinary frequency, No incontinence, No hematuria Neurologic: No paralysis, No weakness, No numbness/tingling, Psychiatric: No depression symptoms, No anhedonism, No anxiety, No insomnia, No substance abuse Heme: No abnormal bleeding/bruising, No clotting problems, No swollen lymph nodes, No night sweats Skin: See HPI, no bleeding Constitutional: + fatigue and + weakness; no fever and no chills Ear, Nose, Mouth, Throat: + dry mouth and + sore throat; no dizziness Cardiovascular: + syncope; no chest pain, no palpitations, no lightheadedness and no calf pain Gastrointestinal: + change in bowel habits; no abdominal pain, no nausea, no vomiting and no blood in stools Musculoskeletal: + joint pain (b/l knee pain) Neurologic: + generalized weakness Physical Exam 2 Vital Signs (Past 24 Hours): Last Vital Signs Temp 37.5 C 07/06/18 15:11 Pulse 96 H 07/06/18 15:11 Resp 16 07/06/18 15:11 BP 126/81 07/06/18 15:11 Pulse Ox 16 L 07/06/18 15:11 Physical Exam: General Appearance: WD/WN, no apparent distress, Eyes: normal inspection, PERRL, EOMI, sclerae normal ENT: normal ENT inspection, hearing grossly normal, pharynx normal Neck: supple, no adenopathy, thyroid normal, no JVD, no carotid bruits, trachea midline Respiratory/Chest: chest non-tender, normal breath sounds, no respiratory distress, no accessory muscle use, breath sounds, rales, wheezing Cardiovascular: irregular , rhythm, s1, s2 no JVD, no obvious murmur Abdomen: normal bowel sounds, non tender, soft, no organomegaly, Extremities: normal range of motion, non-tender, normal inspection, no pedal edema, no calf tenderness, normal capillary refill , pelvis stable, joint has no limited range of motion, capillary refill is normal, no cyanosis clubbing Neurologic/Psychiatric: production supply equipment tender II-XII nml as tested, no motor/sensory deficits, alert, normal mood/affect, oriented x 3 Skin: normal color, warm/dry, no rash Lymphatic: no adenopathy Results & Data Laboratory Results Laboratory Results - last 24 hr 07/06/18 07/06/18 06:38 06:38 WBC 9.48 RBC 4.42 Hgb 13.3 Hct 39.5 MCV 89.4 MCH 30.1 MCHC 33.7 RDW Std Deviation 44.1 RDW Coeff of Mery 13.4 Plt Count 186 MPV 9.9 Immature Gran % (Auto) 0.2 Neut % (Auto) 77.0 Lymph % (Auto) 14.5 [place] % (Auto) 7.6 Eos % (Auto) 0.5 Baso % (Auto) 0.2 Immature Gran # (Auto) 0.02 Neut # (Auto) 7.30 H Lymph # (Auto) 1.37 [place] # (Auto) 0.72 H Eos # (Auto) 0.05 Baso # (Auto) 0.02 Sodium 133 L Potassium 3.9 Chloride 103 Carbon Dioxide 26 Anion Gap 4.0 BUN 11 Creatinine 0.82 Est Cr Clr Drug Dosing 58.2 Est GFR ( Amer) 80.6 Est GFR (Non-Af Amer) 69.5 BUN/Creatinine Ratio 13.7 Glucose 95 Calcium 8.8 Phosphorus 2.3 L Magnesium 2.0
[2018-07-06] MEDS: SIMVASTATIN 40 MG TAB PO SCH (19:27)
[2018-07-06] MEDS: MICONAZOLE NITRATE 2% CR 30 GM TUBE EXT SCH (19:28)
[2018-07-06 21:01] LABS: Partial Thromboplastin Ratio 3.8
[2018-07-06 21:13] LABS: Partial Thromboplastin Time 97.9 Seconds (21.0-31.0)
[2018-07-07 03:33] LABS: Basophils # (auto) 0.05 K/uL (0-0.2); Basophils % (auto) 0.5 %; Eosinophils # (auto) 0.16 K/uL (0-0.5); Eosinophils % (auto) 1.6 %; Hematocrit (blood only) 43.9 % (37-47); Hemoglobin 15.1 g/dL (12.0-16.0); Immature Granulocytes # (auto) 0.02 K/uL (0.00-0.02); Immature Granulocytes % (auto) 0.2 %; Lymphocytes % (auto) 27.7 %; Mean Corpuscular Hgb Conc 34.4 g/dL (32-36); Mean Corpuscular Volume 89.6 fL (80-100); Mean Platelet Volume 9.8 fL (7.4-10.4); Monocytes % (auto) 9.2 %; Neutrophils % (auto) 60.8 %; Platelet Count 205 K/uL (130-400); RDW Coefficient of Variation 13.4 % (11.5-14.5); RDW Standard Deviation 44.2 fL (36.4-46.3); White Blood Count 9.73 K/uL (4.8-10.8)
[2018-07-07 03:51] LABS: BUN Creatinine Ratio 16.3 (10-20); Calcium 8.9 mg/dl (8.5-10.1); Creatinine Clr Calc Pharmacy 53.6 ml/min; Potassium 3.6 mmol/L (3.5-5.1)
[2018-07-07 03:53] LABS: Phosphorus 3.2 mg/dl (2.5-4.9)
[2018-07-07 03:54] LABS: Partial Thromboplastin Ratio 2.2
[2018-07-07] MEDS: DICLOFENAC SOD 1% GEL 100 GM TUBE EXT SCH ×4 (08:00→20:30)
[2018-07-07] MEDS: MICONAZOLE NITRATE 2% CR 30 GM TUBE EXT SCH ×2 (08:01→20:29)
[2018-07-07] MEDS: LISINOPRIL 20 MG TAB PO SCH (08:01)
[2018-07-07] MEDS ORDERED: CLORAZEPATE DIPOTASSIUM 3.75 MG TAB PO PRN (12:43)
--- NOTE | 2018-07-07 12:46 | Hospitalist Progress Note ---
Date of Service July 07, 2018 Assessment & Plan (1) Bradycardia: due to sick sinus syndrome, see below (2) SSS (sick sinus syndrome): initially held Flecainide and beta blockers had two separate 5 second pauses on the monitor evaluated by EP cardiology, recommended pacemaker dual chamber pacemaker implanted on 07/07/18, no complications (3) Hyperlipidemia: (4) Hypertension: (5) Atrial fibrillation with RVR: will resume Flecainide and use Toprol (takes Bystolic at home) resume AC when okay with cardiology (6) Asthma: no wheezing on exam, breathing stable (7) Syncope: due to sick sinus syndrome issue corrected with pacemaker (8) Anxiety: resume her Tranxene 7.5mg TID PRN for anxiety Subjective patient resting all day, awaiting PPM placement with Dr. Kirkpatrick discussed with RN, he said that she was next on the schedule patient denied chest pain/pressure and no dyspne did not have syncope since admission but did have some pauses c/o some anxiety reviewed chart since admission, appreciate cardiology recommendations underwent successful implantation of dual chamber pacemaker, no complications transferred back to PCU in stable condition Review of Systems All systems reviewed & are unremarkable except as noted in HPI & below Respiratory: + dyspnea on exertion Psychiatric: + anxiety Physical Exam 2 Vital Signs (Past 24 Hours): Last Vital Signs Temp 36.8 C 07/07/18 12:14 Pulse 79 07/07/18 12:14 Resp 16 07/07/18 12:14 BP 128/64 07/07/18 12:14 Pulse Ox 99 07/07/18 12:14 Constitutional: WD/WN, vitals as above Eyes: PERRL, conjunctivae normal, anicteric sclerae ENMT: external ear and nose normal, oropharynx normal Neck: trachea midline, no thyromegaly Respiratory: normal respiratory effort, lungs clear to auscultation Cardiovascular: Rate/Rhythm: + tachycardic; + abnormal rhythm (irregular irregular) Heart Sounds: normal S1 and normal S2; no murmur Vessels: normal peripheral pulses; no JVD Gastrointestinal (Abdomen): normal bowel sounds, soft, nontender, no hepatosplenomegaly Musculoskeletal: no cyanosis or clubbing, extremities motor strength 5/5 Skin: no rashes, warm and dry Neurologic: patellar DTR's 2+ bilat, sensation intact and PERRL, EOMI, accommodation nl, no face palsy, no dysarthria Psychiatric: A+Ox3, euthymic affect Lymphatic: no cervical or axillary lymphadenopathy Results & Data Laboratory Results Laboratory Results - last 24 hr 07/06/18 07/07/18 07/07/18 20:17 03:23 03:23 WBC 9.73 RBC 4.90 Hgb 15.1 Hct 43.9 MCV 89.6 MCH 30.8 MCHC 34.4 RDW Std Deviation 44.2 RDW Coeff of Mery 13.4 Plt Count 205 MPV 9.8 Immature Gran % (Auto) 0.2 Neut % (Auto) 60.8 Lymph % (Auto) 27.7 [place] % (Auto) 9.2 Eos % (Auto) 1.6 Baso % (Auto) 0.5 Immature Gran # (Auto) 0.02 Neut # (Auto) 5.90 Lymph # (Auto) 2.70 [place] # (Auto) 0.90 H Eos # (Auto) 0.16 Baso # (Auto) 0.05 APTT 97.9 H* PTT Ratio 3.8 Sodium 135 L Potassium 3.6 Chloride 103 Carbon Dioxide 24 Anion Gap 8.0 BUN 15 Creatinine 0.89 Est Cr Clr Drug Dosing 53.6 Est GFR ( Amer) 73.0 Est GFR (Non-Af Amer) 63.0 BUN/Creatinine Ratio 16.3 Glucose 100 H Calcium 8.9 Phosphorus 3.2 Magnesium 2.0 07/07/18 03:23 WBC RBC Hgb Hct MCV MCH MCHC RDW Std Deviation RDW Coeff of Mery Plt Count MPV Immature Gran % (Auto) Neut % (Auto) Lymph % (Auto) [place] % (Auto) Eos % (Auto) Baso % (Auto) Immature Gran # (Auto) Neut # (Auto) Lymph # (Auto) [place] # (Auto) Eos # (Auto) Baso # (Auto) APTT 56.0 H* PTT Ratio 2.2 Sodium Potassium Chloride Carbon Dioxide Anion Gap BUN Creatinine Est Cr Clr Drug Dosing Est GFR ( Amer) Est GFR (Non-Af Amer) BUN/Creatinine Ratio Glucose Calcium Phosphorus Magnesium Medications Administered Current Inpatient Medications Acetaminophen (Tylenol) 650 mg PO Q4H PRN PRN Reason: Pain Stop: 08/04/18 10:43 Last Admin: 07/06/18 15:28 Dose: 650 mg Albuterol (Ventolin Hfa) 2 puffs INH QID PRN PRN Reason: Shortness Of Breath Or Wheezing Stop: 08/04/18 08:59 Clorazepate Dipotassium (Tranxene-T) 7.5 mg PO Q8 PRN PRN Reason: Anxiety/Agitation Stop: 08/06/18 12:42 Diclofenac Sodium (Voltaren 1% Top) 1 appln EXT QID [facility] Stop: 08/04/18 08:59 Last Admin: 07/07/18 08:00 Dose: 1 appln Lisinopril (Zestril) 20 mg PO QAM [facility] Stop: 08/05/18 08:59 Last Admin: 07/07/18 08:01 Dose: 20 mg Miconazole Nitrate (Monistat Derm) 1 appln EXT BID [facility] Stop: 08/05/18 20:59 Last Admin: 07/07/18 08:01 Dose: 1 appln Simvastatin (Zocor) 40 mg PO HS [facility] Stop: 08/04/18 20:59 Last Admin: 07/06/18 19:27 Dose: 40 mg
[2018-07-07] MEDS ORDERED: MIDAZOLAM HCL 5 MG/ML 1 ML VIAL ONE (13:44)
[2018-07-07] MEDS ORDERED: CEFAZOLIN 250 MG/ML 1 GM VIAL ONE (13:44)
[2018-07-07] MEDS ORDERED: BACITRACIN INJ 50,000 UNIT VIAL ONE (13:44)
[2018-07-07] MEDS ORDERED: fentaNYL citrate 100 MCG/2 ML VIAL ONE (13:44)
[2018-07-07] MEDS ORDERED: LIDOCAINE HCL 1% 20 ML VIAL ONE (13:44)
--- NOTE | 2018-07-07 13:44 | Pre Anesthesia Assessment ---
Date of Service July 07, 2018 Pre Sedation Assessment Vital Signs Temp Pulse Resp BP BP Pulse Ox 07/07/18 12:14 36.8 C 79 16 128/64 99 07/07/18 08:07 36.8 C 76 18 134/75 96 07/07/18 03:17 36.7 C 80 18 100/70 97 07/06/18 23:26 36.7 C 101 H 19 120/83 95 07/06/18 19:11 36.6 C 90 19 143/86 H 96 07/06/18 15:11 37.5 C 96 H 16 126/81 16 L Cardiovascular + tachycardic Respiratory + respiratory effort normal Pre-Sedation Airway Assessment Smoking Status: Never smoker Hx Sleep Apnea: No Hx Difficult Intubation: No Short, Thick Neck: No Thyromental Distance: > or= 3.5 Finger Breadths Oral Cavity: + WNL Mallampati Class: III ASA: ASA3 Procedure Planning Contraindications for Sedation: none Current Medications Reviewed: Yes Notes The planned sedation has been discussed with the patient. Informed Consent was obtained. I have identified the patient, determined the appropriateness of sedation and have assessed the patient immediately prior to the procedure. All medicine(s) and interventions are by my order.
[2018-07-07] MEDS ORDERED: OXYCODONE HCL IR 5 MG TAB (IMMEDIATE RELEASE) PO PRN (14:40)
--- NOTE | 2018-07-07 14:40 | Procedure Note ---
Procedure Note Date of Service July 07, 2018 Note Procedure performed: Implantation of dual-chamber permanent pacemaker Staff applied psychology chair: Bk Kirkpatrick MD Indication: The patient is a 77-year-old woman with a history of paroxysmal atrial fibrillation and associated bradycardia. Based on symptoms associated with tachybradycardia syndrome she was felt to be a good candidate for a permanent pacemaker due to symptomatic nonreversible sinus node dysfunction. A dual-chamber device was selected as wished to maintain AV synchrony. Procedure in detail: The patient was informed of the risks benefits and alternatives to the intended procedure and she wished to proceed. She was taken to the electrophysiology suite in a fasting state. A preoperative antibiotic had been administered. The patient was monitored electrocardiographically throughout today's procedure and conscious sedation was administered per protocol. The left upper pectoral area is prepped and draped in usual sterile fashion. This area was anesthetized using subcutaneous administration of a xylocaine solution. An incision was made at this site and carried down to the prepectoralis fascia using sharp dissection. Electrocautery was also employed for dissection as well as for hemostasis. A device pocket was fashioned tissues above the pectoralis muscle. Subsequent to this maneuver the left axillary vein was accessed using modified Seldinger technique. Sheaths were placed over guidewires at this site and used to facilitate passage of the pacing leads to the respective chambers under fluoroscopic guidance. This included right atrial and right ventricular leads. Adequate sensing and threshold parameters were obtained prior to Active fixation of the leads to the endocardial surface. The proximal portion leads were then sutured the prepectoral fascia using nonabsorbable suture. The device pocket was irrigated with antibiotic solution. The leads were then attached to the device. The device and leads were then placed in the pocket and pocket was closed in 3 layers of absorbable suture. Steri-Strips and sterile dressing were applied. The device was tested noninvasively prior to conclusion the procedure. The patient tolerated procedure well there no immediate complications. Equipment used: New pulse generator: Control Inspector [employer]. Model number: [id number] serial number [id number] Right atrial lead: Control Inspector [employer]. Model number: [id number] serial number [id number] Right ventricular lead: Control Inspector [employer]. Model number: [id number] serial number [id number] Measured data: Right atrial lead: The patient was in atrial fibrillation. Sensing was 5.4 mV. No pacing threshold was obtained but the impedance was 816 ohms Right ventricular lead: R waves measured 5 mV. Pacing threshold 1 V at 0.4 ms with a pacing impedance of 798 ohms Impression: Successful implantation of dual-chamber permanent pacemaker
[2018-07-07] MEDS: ACETAMINOPHEN 325 MG TAB PO PRN (19:15)
[2018-07-07] MEDS: SIMVASTATIN 40 MG TAB PO SCH (20:30)
[2018-07-07] MEDS: CEFAZOLIN 1000MG 1,000 MG/7.5 ML SYR IV SCH (20:31)
[2018-07-07] MEDS ORDERED: METOPROLOL SUCC 25MG EXT REL TAB PO SCH (21:00)
[2018-07-07] MEDS ORDERED: FLECAINIDE ACETATE 100 MG TABLET PO SCH (21:00)
[2018-07-08] MEDS: CEFAZOLIN 1000MG 1,000 MG/7.5 ML SYR IV SCH (05:43)
[2018-07-08] MEDS: ACETAMINOPHEN 325 MG TAB PO PRN (06:03)
--- NOTE | 2018-07-08 06:56 | XRay Report ---
XR chest 2V routine CLINICAL HISTORY: EXACT TIME ORDERED Evaluate for pneumothorax and l COMPARISON STUDY: 07/05/2017 FINDINGS: Interval placement of a permanent bipolar cardiac pacemaker. Leads in good position. No zacarias dence for pneumothorax. IMPRESSION: Bipolar cardiac pacemaker leads in good position. No evidence pneumothorax. The above report was generated using voice recognition software. It may contain grammatical, syntax or spelling errors. Electronically signed by: Aaron Gonzalez M.D. 07/08/2018 6:54 AM
[2018-07-08 07:33] LABS: Partial Thromboplastin Ratio 1.1; Partial Thromboplastin Time 27.5 Seconds (21.0-31.0)
[2018-07-08] MEDS: DICLOFENAC SOD 1% GEL 100 GM TUBE EXT SCH (08:23)
[2018-07-08] MEDS: LISINOPRIL 20 MG TAB PO SCH (08:24)
[2018-07-08] MEDS: MICONAZOLE NITRATE 2% CR 30 GM TUBE EXT SCH (08:27)
--- NOTE | 2018-07-08 09:46 | Discharge Summary ---
Date of Service July 08, 2018 Admission HPI Per Admitting Provider Ms. Root is a 77-year-old female with a history of hypertension, atrial fibrillation, sick sinus syndrome, hyperlipidemia, asthma, osteoarthritis who presents to the emergency department due to a syncopal episode that occurred this evening. She states that she has been feeling weak for the past day, and that this began after she had broccoli and orange juice. She reports that this made her have frequent bowel movements, as frequent as every 5 minutes. She states that her bowel movements were not completely watery, and denies the presence of blood. With regards to her syncopal episode, it occurred while she was on her way to the washroom to have another bowel movement. She denies any preceding symptoms, such as chest pain, palpitations, lightheadedness, shortness of breath. She denies hitting her head. She denies any nausea or vomiting. She denies fever or chills, or any sick contacts. She states that she lives at home with her son, who called the ambulance. Of note, she is a non-smoker, does not use alcohol or recreational drugs. Admission Exam Per Admitting Provider Constitutional: WD/WN, vitals as above cooperative and comfortable Eyes: PERRL, conjunctivae normal, anicteric sclerae ENMT: Mouth: + dry oral mucous membranes Respiratory: Auscultation: lungs clear to auscultation bilaterally and + diminished lung sounds Cardiovascular: Rate/Rhythm: regular rhythm and + bradycardic Heart Sounds : normal S1 and normal S2 Extremities: + pedal edema; no calf tenderness Gastrointestinal (Abdomen): Percussion/Palpation: abdomen soft; abdomen nontender, no guarding and abdomen not rigid Skin: no rashes, warm and dry Neurologic: moves all extremities and awake Principal Diagnosis Sick sinus syndrome, bradycardia Discharge Exam Constitutional WD/WN, vitals as above Eyes PERRL, conjunctivae normal, anicteric sclerae ENMT external ear and nose normal, oropharynx normal Neck trachea midline, no thyromegaly Respiratory normal respiratory effort, lungs clear to auscultation Cardiovascular Rate/Rhythm: + abnormal rhythm (irregular irregular) Heart Sounds: normal S1 and normal S2; no murmur Vessels: normal peripheral pulses; no JVD Gastrointestinal (Abdomen) normal bowel sounds, soft, nontender, no hepatosplenomegaly Musculoskeletal no cyanosis or clubbing, extremities motor strength 5/5 Skin no rashes, warm and dry Neurologic patellar DTR's 2+ bilat, sensation intact and PERRL, EOMI, accommodation nl, no face palsy, no dysarthria Psychiatric A+Ox3, euthymic affect Lymphatic no cervical or axillary lymphadenopathy Discharge Data Allergies Allergy/AdvReac Type Severity Reaction Status Date / Time Bactrim Allergy Intermediate RASH Verified 06/20/17 07:58 sulfamethoxazole Allergy Intermediate RASH Verified 03/27/18 12:35 trimethoprim Allergy Intermediate RASH Verified 03/27/18 12:35 moxifloxacin Allergy Unknown unknown Verified 03/27/18 12:35 pollen extracts Allergy Unknown HAY FEVER Verified 03/27/18 12:35 Corticosteroids AdvReac Intermediate BECOMES Verified 03/27/18 12:35 (Glucocorticoids) "EMOTIONAL" celecoxib AdvReac Unknown PT STATES Verified 03/27/18 12:35 SHE DOESN'T TOLERATE, "FELT FAINT" Cipro AdvReac Unknown abdominal Verified 06/20/17 07:58 pain ciprofloxacin AdvReac Unknown abdominal Verified 03/27/18 12:35 pain escitalopram AdvReac Unknown dreams, Verified 03/27/18 12:35 abd pain montelukast AdvReac Unknown DRY MOUTH Verified 03/27/18 12:35 paroxetine AdvReac Unknown abd pain, Verified 03/27/18 12:35 dreams Consultations 07/05/18 03:15 ED Decision to Admit Stat 07/05/18 10:46 Consult Cardiology Routine Procedures Performed Operation Date: 07/07/18 13:45 Actual Procedures p Pacer with A/V Leads (Dual)(Left) - Keaton Kirkpatrick MD Operation Date: 07/07/18 13:45 Actual Procedures p Pacemaker Insertion - Keaton Kirkpatrick MD Ordered Studies 07/07/18 13:45 EP Lab Images for PACS ONCE Hospital Course (1) Bradycardia: due to sick sinus syndrome, see below (2) SSS (sick sinus syndrome): initially held Flecainide and beta blockers had two separate 5 second pauses on the monitor evaluated by EP cardiology, recommended pacemaker dual chamber pacemaker implanted on 07/07/18, no complications Flecainide and beta mesha resumed prior to discharge discharge instructions given for pacemaker, will follow up with cardiology next week (3) Hyperlipidemia: statin therapy (4) Hypertension: BP stable on lisinopril and beta mesha (5) Atrial fibrillation with RVR: continue Flecainide and Bystolic resume AC on discharge (6) Asthma: no wheezing on exam, breathing stable (7) Syncope: due to sick sinus syndrome issue corrected with pacemaker (8) Anxiety: resumed her Tranxene 7.5mg TID PRN for anxiety Total Time Total Time Spent Total Time Spent (In Minutes): 32 minutes Total Time Includes: Examination of the Patient, Discharge Planning, Medication Reconciliation and Communication With Other Providers (Dr. Fajardo) Discharge Plan Discharge Items Patient Disposition: Home - Self-Care Reason For Visit: BRADYCARDIA Discharge Diagnosis: Sick sinus syndrome, s/p permanent pacemaker implantation Atrial fibrillation Condition: Good Discharge Goals: Improve disease control and Improve function Activity: Per 'Additional Instructions' section Lifting: No more than 5 pounds Lifting Comment: left arm Bathing: Keep incision dry Exercise/Sports: Gradually increase as tolerated Driving/Machine Use: No limitations Non-emergency contact: Primary Care Provider and Manager Environmental Call non-emergency contact if: you have any medication questions, your pain is concerning for you and you have a fever Follow-up/Referrals: Earl Braun MD [Primary Care Provider] - 07/14/18 11:00 am (Please, follow up at Dr. Earl Braun's office with his hospital medical assistant, Toya Ayala PA-C, on SaturdayJuly 14 at 11:00 am. *If you need to change this appointment, call the office at [phone].) Diet: Heart Healthy Add Provider Instructions: Medications: no changes Pacemaker implantation on 07/07/[address] Kirkpatrick, no complications keep steristrips over wound and keep incision dry until seen in the cardiology office DO NOT left left arm above shoulder or reach backwards with left arm for 6 WEEKS FOLLOW UP - cardiology office early next week, they should call you with appointment but if you do not hear from them by give office a call Prescriptions: Continue dabigatran etexilate 150 mg capsule 150 mg PO BID RF: 0 clorazepate dipotassium [Tranxene T-Tab] 7.5 mg Tablet 7.5 mg PO TID PRN (Reason: Anxiety) RF: 0 diclofenac sodium 1 % gel 4 g topical QID RF: 0 nebivolol 5 mg tablet 2.5 mg PO QPM RF: 0 acetaminophen [Tylenol Extra Strength] 500 mg Tablet 1,000 mg PO Q6H PRN (Reason: Pain) RF: 0 simvastatin 40 mg tablet 40 mg PO HS RF: 0 lisinopril 10 mg tablet 10 mg PO QAM RF: 0 flecainide 100 mg tablet 100 mg PO BID RF: 0 Stand-Alone Forms: [facility] Discharge Orders: Discharge Order (Routine); Ordered 07/08/18 Ordered By: Claudio Hyde Admission Data Admit Date/Time: 07/05/18 04:02 Attending Provider: Claudio Hyde Admit Provider: Rosa Maria Dominguez Primary Care Provider: Earl Braun Other Providers: Raheem Lindo ; Reid Eckert Service: Telemetry Other Interventions: Discharge Summary Assessment (RN) Last Done: 07/08/18 10:53 DC Date/Time DO NOT enter until pt leaves facility: 07/08/18 11:17
== END 2018-07-08 11:17 | disposition home or self-care (01) | DRG 243 ==
LOC: ED 01:31 → 2S 04:02 → SUATTDRO 04:02 → 2S 04:31

== ENCOUNTER 2019-06-04 02:34 | Observation (INO) ==
[2019-06-04] MEDS ORDERED: HydrALAZINE HCL 20 MG/ML VIAL IV STA (02:59)
[2019-06-04] MEDS ORDERED: ONDANSETRON INJ 2 MG/ML 2 ML VIAL IV STA (02:59)
[2019-06-04 03:11] LABS: Basophils # (auto) 0.05 K/uL (0-0.2); Basophils % (auto) 0.6 %; Eosinophils # (auto) 0.21 K/uL (0-0.5); Eosinophils % (auto) 2.7 %; Hematocrit (blood only) 43.1 % (37-47); Hemoglobin 14.6 g/dL (12.0-16.0); Immature Granulocytes # (auto) 0.02 K/uL (0.00-0.02); Immature Granulocytes % (auto) 0.3 %; Lymphocytes # (auto) 2.78 K/uL (1.2-3.4); Mean Corpuscular Hemoglobin 30.7 pg (25-34); Mean Corpuscular Hgb Conc 33.9 g/dL (32-36); Mean Corpuscular Volume 90.5 fL (80-100); Mean Platelet Volume 9.7 fL (7.4-10.4); Monocytes % (auto) 6.5 %; Neutrophils # (auto) 4.17 K/uL (1.4-6.5); Neutrophils % (auto) 53.9 %; Platelet Count 209 K/uL (130-400); RDW Coefficient of Variation 13.5 % (11.5-14.5); RDW Standard Deviation 44.7 fL (36.4-46.3); Red Blood Count 4.76 M/uL (4.2-5.4); White Blood Count 7.73 K/uL (4.8-10.8)
[2019-06-04 03:30] LABS: Alanine Aminotransferase 21 U/L (12-78); Albumin Level 3.9 gm/dl (3.4-5.0); Aspartate Aminotransferase 14 U/L (15-37); BUN Creatinine Ratio 13.9 (10-20); Blood Urea Nitrogen 16 mg/dl (7-18); Calcium 8.7 mg/dl (8.5-10.1); Carbon Dioxide 25 mmol/L (21-32); Chloride 104 mmol/L (98-107); Creatinine Clr Calc Pharmacy 39.6 ml/min; Est GFR (African American) 52.6; Est GFR (Non-African American) 45.4; Glucose 105 mg/dl (70-99); Magnesium 2.2 mg/dl (1.8-2.4); Potassium 4.1 mmol/L (3.5-5.1); Sodium 133 mmol/L (136-145)
[2019-06-04 03:40] LABS: Albumin Globulin Ratio 1.1 (0.9-2); Alkaline Phosphatase 51 U/L (45-117); Bilirubin,Total 0.3 mg/dl (0.2-1); Globulin 3.6 gm/dl (2.5-4.0); Total Protein 7.5 gm/dl (6.4-8.2); Troponin I < 0.015 ng/ml (0-0.045)
--- NOTE | 2019-06-04 03:45 | Emergency Department Note ---
History of Present Illness General Chief complaint: Hypertension Stated complaint: DIZZY,SWEATY History of Present Illness This 78-year-old presents to the ER complaining of headache, lightheaded, nausea and sweaty with elevated blood pressure Location: Generalized Quality: Lightheaded Severity: Moderate Duration: Past 2 days Timing: Started 2 days ago Context: Symptoms got worse and patient came here Modifying factors: better with nothing; worse with activity Patient states she was accidentally taking too much of her Nebivolol as she thought she is to take 5 mg instead of 2.5 mg. For the past 2 days she is been taking 2.5 mg. She has been symptomatic since. Patient denies chest pain, abdominal pain, numbness, tingling, localized weakness. Home Medications Home Medications Medication Instructions Recorded Confirmed Type flecainide 100 mg PO BID 03/27/18 06/04/19 History simvastatin 40 mg PO HS 03/27/18 06/04/19 History dabigatran etexilate 150 mg PO BID 07/05/18 06/04/19 History albuterol sulfate 2.5 mg/3 mL 2.5 mg INH Q6H PRN #75 ml 11/28/18 06/04/19 Rx (0.083 %) solution for nebulization diclofenac sodium 1 % topical gel 4 g TOPICAL QID PRN #100 gm 02/18/19 06/04/19 Rx lisinopril 10 mg PO DAILY 03/07/19 06/04/19 History clorazepate dipotassium 7.5 mg 7.5 mg PO TID PRN #90 tab 05/20/19 06/04/19 Rx tablet nebivolol 2.5 mg tablet 2.5 mg PO DAILY #90 tab 06/02/19 06/04/19 Rx glucosamine-chondroitin [Osteo 2 tab PO DAILY 06/04/19 06/04/19 History Bi-Flex] Allergies Allergy/AdvReac Type Severity Reaction Status Date / Time Bactrim Allergy Intermediate RASH Verified 06/20/17 07:58 sulfamethoxazole Allergy Intermediate RASH Verified 06/04/19 03:09 trimethoprim Allergy Intermediate RASH Verified 06/04/19 03:09 moxifloxacin Allergy Unknown unknown Verified 06/04/19 03:09 pollen extracts Allergy Unknown HAY FEVER Verified 06/04/19 03:09 Corticosteroids AdvReac Intermediate BECOMES Verified 06/04/19 03:09 (Glucocorticoids) "EMOTIONAL" celecoxib AdvReac Unknown PT STATES Verified 06/04/19 03:09 SHE DOESN'T TOLERATE, "FELT FAINT" Cipro AdvReac Unknown abdominal Verified 06/20/17 07:58 pain ciprofloxacin AdvReac Unknown abdominal Verified 06/04/19 03:09 pain escitalopram AdvReac Unknown dreams, Verified 06/04/19 03:09 abd pain montelukast AdvReac Unknown DRY MOUTH Verified 06/04/19 03:09 paroxetine AdvReac Unknown abd pain, Verified 06/04/19 03:09 dreams Avelox TABS Allergy Unknown Unknown Uncoded 06/04/19 03:09 Azithromycin PACK Allergy Unknown Unknown Uncoded 06/04/19 03:09 Doxycycline Hyclate CAPS Allergy Unknown Unknown Uncoded 06/04/19 03:09 Lexapro TABS Allergy Unknown Unknown Uncoded 06/04/19 03:09 Macrobid CAPS Allergy Unknown Unknown Uncoded 06/04/19 03:09 Paxil TABS Allergy Unknown Unknown Uncoded 06/04/19 03:09 Singulair TABS Allergy Unknown Unknown Uncoded 06/04/19 03:09 Past Med/Surg History Medical History A-fib (Chronic) Acute abdominal pain (Resolved) Acute abdominal pain (Resolved) Acute electrocardiogram changes (Acute) Acute hyponatremia (Acute) Anticoagulant long-term use Anxiety (Chronic) Asthma (Chronic) Asthma attack (Acute) Atrial fibrillation with RVR (Acute) Bradycardia Bradycardia (Acute) Cellulitis of left knee (Acute) Costochondritis (Acute) Hematuria (Resolved) History of pacemaker Hyperlipidemia Hypertension Hypertension Hyponatremia Junctional bradycardia Palpitations (Acute) Pneumonia (Acute) Pruritic rash (Acute) Sinus node dysfunction SSS (sick sinus syndrome) Subconjunctival hemorrhage of right eye (Acute) Syncope Urticaria (Acute) Surgical History Post-operative state S/P knee surgery Family History Mother Congestive heart failure Other Atrial fibrillation Social History Preferred Language: Slovenian Communication Ability: Effective 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 Beliefs That Will Affect Care: None marital status: / Current Living Situation: Family Current Living Situation Comment: lives with son current occupational status: retired Feels Safe at Home: Yes Smoking Status: Never smoker Second Hand Exposure: No ; Hx Alcohol Use: No Hx Substance Use: No Childhood Exposure to Second-Hand Smoke: Yes caffeine: No Dental Care, Regularly: Yes Physical Activity Frequency: 3-4 Times per Week Seatbelt Use: always Review of Systems A total of 10 systems reviewed and were otherwise negative Physical Exam Vital Signs Vital Signs - 24 hr 06/04/19 02:37 06/04/19 03:39 06/04/19 04:08 Temperature 36.6 C Temperature Source Oral Pulse Rate 87 Pulse Rate [Right Finger] 75 74 Pulse Rhythm [Right Finger] Regular Regular Pulse Strength [Right Finger] Normal Respiratory Rate 16 16 16 Respiratory Depth Normal Normal Blood Pressure 222/115 H Blood Pressure [Right Arm] 186/84 H 168/82 H Blood Pressure Mean 150 Blood Pressure Mean [Right Arm] 118 110 Blood Pressure Position [Right Arm] Lying Lying Pulse Oximetry 94 95 97 Oxygen Delivery Method Room Air Room Air Room Air Sepsis Recent Fever Within 48 Hours No Sepsis New/Unexplained Change in Mental Status No Sepsis Action Taken by Nursing No Action Required 06/04/19 05:31 Temperature Temperature Source Pulse Rate Pulse Rate [Right Finger] 75 Pulse Rhythm [Right Finger] Regular Pulse Strength [Right Finger] Normal Respiratory Rate 16 Respiratory Depth Normal Blood Pressure Blood Pressure [Right Arm] 171/92 H Blood Pressure Mean Blood Pressure Mean [Right Arm] 118 Blood Pressure Position [Right Arm] Lying Pulse Oximetry 100 Oxygen Delivery Method Room Air Sepsis Recent Fever Within 48 Hours Sepsis New/Unexplained Change in Mental Status Sepsis Action Taken by Nursing VITALS: Vitals are noted on the nurse's note and reviewed by myself. Vital signs hypertensive. GENERAL: Pleasant female, in no acute distress, nondiaphoretic, well-developed well-nourished. SKIN: The skin was without rashes, erythema, edema, or bruising. There is no tenting of the skin. Capillary reflex less than 2 seconds. HEAD: Normocephalic atraumatic. EARS: External auditory canals clear EYES: Pupils equal round and reactive to light and accommodation. Conjunctivae without injection, sclerae without icterus. Extraocular movements intact. NOSE: Patent, turbinates without inflammation or discharge. MOUTH: Mucous membranes moist. Pharynx without erythema or exudate. Uvula midline. Airway patent. Tongue does not deviate. NECK: Supple without nuchal rigidity. No lymphadenopathy. No thyromegaly. Cervical spine is nontender. No JVD. HEART: Regular rate and rhythm LUNGS: Clear to auscultation bilaterally without wheezes, rales or rhonchi. No retractions or accessory muscle use. ABDOMEN: Positive bowel sounds x 4. Normal tympanic percussion. Soft, nontender, without masses or organomegaly. Richter sign negative. No guarding or rebound tenderness. No CVA tenderness MUSCULOSKELETAL: No muscle atrophy, erythema, or edema noted. NEURO: Patient was alert and oriented to person place and time. Normal sensation to light and sharp touch. No focal neurological deficits. Cranial nerves II through XII grossly intact. No pronator drift. Cerebellar exam intact. Course Administered Medications Discontinued Medications Acetaminophen (Tylenol) 650 mg PO NOW STA Stop: 06/04/19 06:07 Last Admin: 06/04/19 06:29 Dose: 650 mg Documented by: [id number] Hydralazine HCl (Hydralazine Hcl) 10 mg IV NOW STA Stop: 06/04/19 03:00 Last Admin: 06/04/19 03:11 Dose: 10 mg Documented by: [id number] Meclizine HCl (Antivert) 25 mg PO NOW STA Stop: 06/04/19 03:55 Last Admin: 06/04/19 03:57 Dose: 25 mg Documented by: [id number] Ondansetron HCl (Zofran) 4 mg IV NOW STA Stop: 06/04/19 03:00 Last Admin: 06/04/19 03:10 Dose: 4 mg Documented by: [id number] Medical Decision Making Medical Records Attestation: I reviewed the patient's medical records. Home Medications Current Medication List: was personally reviewed by me Laboratory Data Attestation: I reviewed the patient's lab results. Result diagrams: 06/04/19 02:59 06/04/19 02:59 Lab Results 06/04/19 06/04/19 06/04/19 Range/Units 02:59 02:59 03:47 WBC 7.73 (4.8-10.8) K/uL RBC 4.76 (4.2-5.4) M/uL Hgb 14.6 (12.0-16.0) g/dL Hct 43.1 (37-47) % MCV 90.5 (80-100) fL MCH 30.7 (25-34) pg MCHC 33.9 (32-36) g/dL RDW Std Deviation 44.7 (36.4-46.3) fL RDW Coeff of Mery 13.5 (11.5-14.5) % Plt Count 209 (130-400) K/uL MPV 9.7 (7.4-10.4) fL Immature Gran % (Auto) 0.3 % Neut % (Auto) 53.9 % Lymph % (Auto) 36.0 % [place] % (Auto) 6.5 % Eos % (Auto) 2.7 % Baso % (Auto) 0.6 % Immature Gran # (Auto) 0.02 (0.00-0.02) K/uL Neut # (Auto) 4.17 (1.4-6.5) K/uL Lymph # (Auto) 2.78 (1.2-3.4) K/uL [place] # (Auto) 0.50 (0.11-0.59) K/uL Eos # (Auto) 0.21 (0-0.5) K/uL Baso # (Auto) 0.05 (0-0.2) K/uL Sodium 133 L (136-145) mmol/L Potassium 4.1 (3.5-5.1) mmol/L Chloride 104 (98-107) mmol/L Carbon Dioxide 25 (21-32) mmol/L Anion Gap 4.0 (3-11) BUN 16 (7-18) mg/dl Creatinine 1.16 (0.6-1.2) mg/dl Est Cr Clr Drug Dosing 39.6 ml/min Est GFR ( Amer) 52.6 Est GFR (Non-Af Amer) 45.4 BUN/Creatinine Ratio 13.9 (10-20) Glucose 105 H (70-99) mg/dl Calcium 8.7 (8.5-10.1) mg/dl Magnesium 2.2 (1.8-2.4) mg/dl Total Bilirubin 0.3 (0.2-1) mg/dl AST 14 L (15-37) U/L ALT 21 (12-78) U/L Alkaline Phosphatase 51 (45-117) U/L Troponin I < 0.015 (0-0.045) ng/ml Total Protein 7.5 (6.4-8.2) gm/dl Albumin 3.9 (3.4-5.0) gm/dl Globulin 3.6 (2.5-4.0) gm/dl Albumin/Globulin Ratio 1.1 (0.9-2) TSH 1.980 (0.300-4.500) uIu/ml Urine Color Yellow Urine Appearance Clear (Clear) Urine pH 6.0 (4.5-7.5) Ur Specific [place] 1.009 (1.000-1.030) Urine Protein Negative (Negative) Urine Glucose (UA) Negative (Negative) Urine Ketones Negative (Negative) Urine Blood Negative (Negative) Urine Nitrite Negative (Negative) Urine Bilirubin Negative (Negative) Urine Urobilinogen Negative (Negative) Ur Leukocyte Esterase Negative (Negative) Imaging Data Attestation: I personally reviewed and interpreted this imaging study as follows: Blood Pressure Blood Pressure Findings: Elevated blood pressure Blood Pressure Disposition: further management by hospitalist [facility] Narrative Prior records/ancillary studies reviewed regarding the history above. Triage Nursing notes reviewed. Additional history obtained from the family. The patient's history was concerning for hypertension. Differential diagnosis: Etiologies such as benign hypertension, hypertensive emergency, cardiovascular pathology, pheochromocytoma, electrolyte abnormality, renal disease, endorgan damage, as well as others were entertained. Physical examination: As above. No signs of end organ damage. ER treatment provided: Hydralazine, meclizine On reassessment the patient felt better. Diagnostic interpretation by me: The electrocardiogram was negative for pathologic change. Poor baseline, first-degree AV block, no acute ST-T wave changes, rate of 71. Impression normal sinus rhythm with first-degree AV block interpreted by myself EKG ordered for hypertension I think arrhythmia is unlikely. EKG shows normal sinus rhythm with no interval abnormalities such as QT prolongation or WPW. There are no findings to suggest Brugada syndrome. Cardiac monitoring in the emergency department reveals no tachycardic or bradycardic dysrhythmia. Hypertrophic cardiomyopathy was considered but there are no clear historical elements pointing toward this. EKG is not suggestive. The QRS voltage is not extremely large and there are no suggestive Q waves. The labs revealed negative troponin. Stable H&H Negative urine, euthyroid Imaging studies: Chest x-ray with no acute consolidation, pneumothorax or free air per my interpretation CT HEAD: No ICH, mass effect or edema. No evidence of acute cortical stroke. Visualized sinuses and mastoid air cells are clear. Radiologist: Miguel Angel Roldan MD Consultation: A consultation was placed with Dr Lindo, hospitalist. The case was discussed and diagnostics were reviewed. The patient was evaluated in the ER for further treatment. This appears to be consistent with hypertensive urgency with lightheadedness, vertigo diaphoresis and nausea. Blood pressure improved. Patient was still symptomatic. Medicine was consulted. By the evaluation outlined above emergent etiologies such as hypertensive emergency, pheochromocytoma, endorgan damage, cardiac ischemia, aortic dissection, pulmonary embolism, pneumonia, pneumothorax, infections, gastrointestinal, as well as others were deemed relatively unlikely. Case reviewed with my attending The chart was completed utilizing [employer] Speech voice recognition software. Grammatical errors, random word insertions, pronoun errors, and incomplete sentences are an occassional consequence of this system due to software limitations, ambient noise, and hardware issues. Any formal questions or concerns about the content, text, or information contained within the body of this dictation should be directly addressed to the physician professional nursing assistant for clarification. Impression & Plan Hypertensive urgency, Light-headed, Dizziness, Nauseous, Diaphoresis Discharge Plan Visit Data Chief Complaint: Hypertension Stated Complaint: DIZZY,SWEATY ED Provider: Maira Shetty ED Midlevel Provider: Kristal Contreras Discharge Problem: Hypertensive urgency, Light-headed, Dizziness, Nauseous, Diaphoresis Patient Disposition: Being Evaluated by Hospitalist Condition: Fair Forms Stand Alone Forms: [facility] Prescriptions Prescriptions: No Action albuterol sulfate 2.5 mg /3 mL (0.083 %) solution for nebulization 2.5 mg INH Q6H PRN (Reason: shortness of breath or wheezing) Qty: 75 RF: 5 diclofenac sodium 1 % gel 4 g topical QID PRN (Reason: Pain) Qty: 100 RF: 5 clorazepate dipotassium [Tranxene T-Tab] 7.5 mg tablet 7.5 mg PO TID PRN (Reason: anxiety) Qty: 90 RF: 0 nebivolol 2.5 mg tablet 2.5 mg PO DAILY Qty: 90 RF: 3 dabigatran etexilate 150 mg capsule 150 mg PO BID RF: 0 lisinopril 10 mg tablet 10 mg PO DAILY RF: 0 glucosamine-chondroitin [Osteo Bi-Flex] 250-200 mg Tablet 2 tab PO DAILY RF: 0 simvastatin 40 mg tablet 40 mg PO HS RF: 0 flecainide 100 mg tablet 100 mg PO BID RF: 0 Referrals Referrals: Earl Braun MD [Primary Care Provider] -
[2019-06-04] MEDS ORDERED: MECLIZINE HCL 25 MG TAB PO STA (03:54)
[2019-06-04 03:57] LABS: Appearance Urine Clear (Clear); Bilirubin Urine Negative (Negative); Blood Urine Negative (Negative); Color Urine Yellow; Glucose Urine UA Negative (Negative); Ketones Urine Negative (Negative); Leukocyte Esterase Urine Negative (Negative); Nitrite Urine Negative (Negative); Protein Urine Negative (Negative); Specific Gravity Urine 1.009 (1.000-1.030); Urobilinogen Urine Negative (Negative)
[2019-06-04] MEDS ORDERED: ACETAMINOPHEN 325 MG TAB PO STA (06:06)
--- NOTE | 2019-06-04 06:39 | XRay Report ---
XR chest 1V portable CLINICAL HISTORY: Hypertension COMPARISON STUDY: Chest radiograph March 07, 2019. FINDINGS: Lung volumes are normal. There is no pneumothorax or pleural effusion. A dual-lead left sub clavian pacemaker is in place. Cardiomediastinal silhouette is stable. There is no consolidation or e vidence for pulmonary edema. IMPRESSION: No acute cardiopulmonary findings. ACT 112: Negative or not required by law. Electronically signed by: Prosper Mathews M.D. 06/04/2019 6:38 AM
--- NOTE | 2019-06-04 06:40 | CT Scan Report ---
CT head/brain wo con CLINICAL HISTORY: 78 years-old Female with Hypertension. Acute hypertension TECHNIQUE: Multiple axial CT images of the head were obtained without contrast. A dose lowering tech nique was utilized adhering to the principles of ALARA. CT DOSE: 537.48 mGy.cm COMPARISON: Head CT 03/07/2019. FINDINGS: No acute intracranial hemorrhage, midline shift, intracranial mass, hydrocephalus, territorial ischem ia or abnormal extra-axial collection. Mild age-related involutional changes. Cerebral vascular calci fications are noted. The calvarium is intact. The paranasal sinuses, mastoid air cells, and middle ear cavities are clear . IMPRESSION: No acute intracranial abnormality. ACT 112: Negative or not required by law. The above report was generated using voice recognition software. It may contain grammatical, syntax o r spelling errors. Electronically signed by: Cal Littlejohn M.D. 06/04/2019 6:38 AM
[2019-06-04] MEDS ORDERED: LABETALOL HCL IV 5 MG/ML 20ML IV STA (06:45)
--- NOTE | 2019-06-04 06:51 | History & Physical Report ---
Date of Service June 04, 2019 Assessment & Plan (1) Hypertensive urgency: 78 y/o F Hx HTN, PAF, SSS - pacer, HLD, asthma. Presents with acute vertigo and nausea. Denies CP or SOB. The pt's BP was 215/115 on arrival to the ER. She was reportedly diaphoretic on presentation, however, she states she has been experiencing night sweats for > 2 months so that it may have been a unrelated symptom. She received Meclizine and Hydralazine in the ER and reports vast improvement at the time of admission. Her blood pressure persists at approximately 180 systolic. An EKG displayed a sinus rhythm. Labs were unremarkable. 1) HTN urgency - vertigo and SBP > 200 - resolved - her SBP is 180 on admission - will allow her to take her daily HTN meds, monitor on telemetry and consult cardiology for outpt adjustments. I do not suspect a CVA considering complete resolution of vertigo with meclizine and the pt is anticoagulated regardless. Cont ASA, statin. 2) PAF - sinus on admission - cont Flecainide, Bystolic, Pradaxa 3) HLD - cont statin Full code - Pradaxa prophylaxis Toal time for this admit including review of labs, meds, imaging, records - discussion with pt and ER attending - 35 min History of Present Illness Primary Care Provider: Earl Braun MD 78 y/o F Hx HTN, PAF, SSS - pacer, HLD, asthma. Presents with acute vertigo and nausea. Denies CP or SOB. The pt's BP was 215/115 on arrival to the ER. She was reportedly diaphoretic on presentation, however, she states she has been experiencing night sweats for > 2 months so that it may have been a unrelated symptom. She received Meclizine and Hydralazine in the ER and reports vast improvement at the time of admission. Her blood pressure persists at approximately 180 systolic. An EKG displayed a sinus rhythm. Labs were unremarkable. PMH: 1) HTN 2) HLD 3) PAF 4) Sick sinus syndrome - pacer 2018 5) Asthma Surgical: Pacer placement Social: Does not drink or smoke - maintains independence Family: Noncontributory due to pt's age Allergies Allergy/AdvReac Type Severity Reaction Status Date / Time Bactrim Allergy Intermediate RASH Verified 06/20/17 07:58 sulfamethoxazole Allergy Intermediate RASH Verified 06/04/19 03:09 trimethoprim Allergy Intermediate RASH Verified 06/04/19 03:09 moxifloxacin Allergy Unknown unknown Verified 06/04/19 03:09 pollen extracts Allergy Unknown HAY FEVER Verified 06/04/19 03:09 Corticosteroids AdvReac Intermediate BECOMES Verified 06/04/19 03:09 (Glucocorticoids) "EMOTIONAL" celecoxib AdvReac Unknown PT STATES Verified 06/04/19 03:09 SHE DOESN'T TOLERATE, "FELT FAINT" Cipro AdvReac Unknown abdominal Verified 06/20/17 07:58 pain ciprofloxacin AdvReac Unknown abdominal Verified 06/04/19 03:09 pain escitalopram AdvReac Unknown dreams, Verified 06/04/19 03:09 abd pain montelukast AdvReac Unknown DRY MOUTH Verified 06/04/19 03:09 paroxetine AdvReac Unknown abd pain, Verified 06/04/19 03:09 dreams Avelox TABS Allergy Unknown Unknown Uncoded 06/04/19 03:09 Azithromycin PACK Allergy Unknown Unknown Uncoded 06/04/19 03:09 Doxycycline Hyclate CAPS Allergy Unknown Unknown Uncoded 06/04/19 03:09 Lexapro TABS Allergy Unknown Unknown Uncoded 06/04/19 03:09 Macrobid CAPS Allergy Unknown Unknown Uncoded 06/04/19 03:09 Paxil TABS Allergy Unknown Unknown Uncoded 06/04/19 03:09 Singulair TABS Allergy Unknown Unknown Uncoded 06/04/19 03:09 Home Medications Home Medications Medication Instructions Recorded Confirmed Type flecainide 100 mg PO BID 03/27/18 06/04/19 History simvastatin 40 mg PO HS 03/27/18 06/04/19 History dabigatran etexilate 150 mg PO BID 07/05/18 06/04/19 History albuterol sulfate 2.5 mg/3 mL 2.5 mg INH Q6H PRN #75 ml 11/28/18 06/04/19 Rx (0.083 %) solution for nebulization diclofenac sodium 1 % topical gel 4 g TOPICAL QID PRN #100 gm 02/18/19 06/04/19 Rx lisinopril 10 mg PO DAILY 03/07/19 06/04/19 History clorazepate dipotassium 7.5 mg 7.5 mg PO TID PRN #90 tab 05/20/19 06/04/19 Rx tablet nebivolol 2.5 mg tablet 2.5 mg PO DAILY #90 tab 06/02/19 06/04/19 Rx glucosamine-chondroitin [Osteo 2 tab PO DAILY 06/04/19 06/04/19 History Bi-Flex] Past Med/Surg History Medical History A-fib (Chronic) Acute abdominal pain (Resolved) Acute abdominal pain (Resolved) Acute electrocardiogram changes (Acute) Acute hyponatremia (Acute) Anticoagulant long-term use Anxiety (Chronic) Asthma (Chronic) Asthma attack (Acute) Atrial fibrillation with RVR (Acute) Bradycardia Bradycardia (Acute) Cellulitis of left knee (Acute) Costochondritis (Acute) Hematuria (Resolved) History of pacemaker Hyperlipidemia Hypertension Hypertension Hyponatremia Junctional bradycardia Palpitations (Acute) Pneumonia (Acute) Pruritic rash (Acute) Sinus node dysfunction SSS (sick sinus syndrome) Subconjunctival hemorrhage of right eye (Acute) Syncope Urticaria (Acute) Surgical History Post-operative state S/P knee surgery Family History Mother Congestive heart failure Other Atrial fibrillation Social History Preferred Language: Russian Communication Ability: Effective 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 Beliefs That Will Affect Care: None marital status: / Current Living Situation: Family Current Living Situation Comment: lives with son current occupational status: retired Feels Safe at Home: Yes Smoking Status: Never smoker Second Hand Exposure: No ; Hx Alcohol Use: No Hx Substance Use: No Childhood Exposure to Second-Hand Smoke: Yes caffeine: No Dental Care, Regularly: Yes Physical Activity Frequency: 3-4 Times per Week Seatbelt Use: always Review of Systems Review of Systems: Gen: Denies fevers - reports night sweats ENT: Denies congestion, throat pain, hearing loss Eyes: Denies acute visual changes CV: Denies CP, palpitations Pulmonary: Denies SOB, cough, wheezing GI: Denies N/V, diarrhea, constipation Neuro: Vertigo as per HPI Musculoskeletal: Denies joint pain, inflammation Endocrine: Denies polydipsia, polyuria Skin: Denies acute rashes or ulcers Physical Exam Physical Exam: General: AAO x 3, no distress ENT: No erythema or exudates, no thrush Eyes: GERARDO, EOMI Head and neck: Normocephalic, atraumatic, No JVD, neck is supple. Chest/heart: Nontender, S1,2, RRR, no murmurs, no gallops Lungs: CTAB, no wheezing or crackles Abdomen: Nontender, nondistended, BS+ Neuro: AAO x 3, speech is clear, no unilateral weakness or loss of sensation, coordination intact Musculoskeletal: No joint inflammation, muscle tenderness, FROM Skin: No acute rashes or ulcers Extremities: No clubbing, cyanosis, edema Results & Data Vital Signs (Past 12 Hours) Vital Signs Temp Pulse Pulse Resp BP BP Pulse Ox 06/04/19 05:31 75 16 171/92 H 100 06/04/19 04:08 74 16 168/82 H 97 06/04/19 03:39 75 16 186/84 H 95 06/04/19 02:37 97.9 F 87 16 222/115 H 94 PG Care Time/CCT Total # of Minutes Spent Total Time Spent with Patient: Total time spent is greater than 50% in coordination of care (as documented) at patient's floor/unit and/or counseling patient:
[2019-06-04] MEDS ORDERED: CLORAZEPATE DIPOTASSIUM 3.75 MG TAB PO PRN (08:41)
[2019-06-04] MEDS ORDERED: MAGNESIUM HYDROXIDE SUSP 30 ML UDC PO PRN (08:41)
[2019-06-04] MEDS ORDERED: ALUMINUM/MAGNESIUM SUSP 30 ML UDC PO PRN (08:41)
[2019-06-04] MEDS ORDERED: ALBUTEROL 0.083% NEBU SOLN 3 ML VIAL INH PRN (08:41)
[2019-06-04] MEDS: NEBIVOLOL HCL 5 MG TAB PO SCH (09:14)
[2019-06-04] MEDS: FLECAINIDE ACETATE 100 MG TABLET PO SCH ×2 (09:14→21:29)
[2019-06-04] MEDS: lisinopriL 10 MG TAB PO SCH (09:14)
[2019-06-04] MEDS: DABIGATRAN ETEXILATE 75 MG CAP PO SCH ×2 (09:14→21:29)
[2019-06-04] MEDS ORDERED: AMLODIPINE BESYLATE 5 MG TAB PO ONE (11:45)
[2019-06-04] MEDS ORDERED: lisinopriL 10 MG TAB PO ONE (11:45)
[2019-06-04] MEDS: ACETAMINOPHEN 325 MG TAB PO PRN ×2 (12:53→21:40)
[2019-06-04] MEDS: SODIUM CHLORIDE 0.65% NA SOLN 45 ML (OCEAN) ONE ×2 (13:32→13:33)
--- NOTE | 2019-06-04 15:14 | Cardiology Consultation ---
Date of Consultation June 04, 2019 Assessment & Plan (1) Hypertensive urgency: Patient had elevated blood pressures at time of admission. She has had elevated blood pressures in the past this may be partially related to anxiety. She also has been increasing her sodium intake recently. It is unclear whether any of her symptoms are related to her high blood pressure. There was no evidence of end-organ damage at the time of admission. Click there are many options reducing her blood pressure. One would include addition of a diuretic given her known high sodium intake. However, she has been administered an additional dose of Carlos inhibitor and started on calcium channel mesha this afternoon. We need to wait and see effect those medications have prior to advocating any additional changes. Also, it is likely that her higher blood pressures are related to anxiety. Perhaps the addition of an axial lytic to her regimen would improve her blood pressures. Monitoring on outpatient basis generally reveals good blood pressure control. (2) Atrial fibrillation with RVR: Currently in sinus rhythm. Interrogation of her device can be performed during this admission. She should be continued on her anticoagulation indefinitely. (3) SSS (sick sinus syndrome): Normally functioning dual-chamber permanent pacemaker at last evaluation. Rate response was added. We can interrogate the device and see what her rate histograms have done recently given her complaint of fatigue. History of Present Illness Reason for Consultation: Hypertension Requesting Physician: Guicho Attending Physician: Pio Philip History of Present Illness The patient is a 78-year-old woman with a history of hypertension who presented to the emergency room with hypertension. Based on the fact that she had hypertension Cardiology was consulted Patient has a longstanding history of hypertension is generally well controlled. She has been on outpatient regimen for some time with good control based on readings she obtains at home. She has been admitted to the hospital in the past with elevated blood pressures. However, without any specific change in her medical regimen her blood pressures generally return to normal. Patient states that over the past few days she has had an element of dizziness. She describes this as a feeling of lightheadedness and not exclusively vertigo. She has suffered from vertigo and lightheadedness previously. She also reported a headache. She perhaps has an element of fatigue after her pacemaker was changed a recent outpatient visit. She has not suffered syncope. She has not been reporting chest pain. She has no sense of palpitations. She has been taking her blood pressure medicines at an increased dose. She made a mistake of taking a full Bystolic pill rather than half a pill. She reduced her dose recently. She has also been following a high sodium diet. She sauerkraut and pork 2 nights ago. 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 Allergies Allergy/AdvReac Type Severity Reaction Status Date / Time Bactrim Allergy Intermediate RASH Verified 06/20/17 07:58 sulfamethoxazole Allergy Intermediate RASH Verified 06/04/19 03:09 trimethoprim Allergy Intermediate RASH Verified 06/04/19 03:09 moxifloxacin Allergy Unknown unknown Verified 06/04/19 03:09 pollen extracts Allergy Unknown HAY FEVER Verified 06/04/19 03:09 Corticosteroids AdvReac Intermediate BECOMES Verified 06/04/19 03:09 (Glucocorticoids) "EMOTIONAL" celecoxib AdvReac Unknown PT STATES Verified 06/04/19 03:09 SHE DOESN'T TOLERATE, "FELT FAINT" Cipro AdvReac Unknown abdominal Verified 06/20/17 07:58 pain ciprofloxacin AdvReac Unknown abdominal Verified 06/04/19 03:09 pain escitalopram AdvReac Unknown dreams, Verified 06/04/19 03:09 abd pain montelukast AdvReac Unknown DRY MOUTH Verified 06/04/19 03:09 paroxetine AdvReac Unknown abd pain, Verified 06/04/19 03:09 dreams Avelox TABS Allergy Unknown Unknown Uncoded 06/04/19 03:09 Azithromycin PACK Allergy Unknown Unknown Uncoded 06/04/19 03:09 Doxycycline Hyclate CAPS Allergy Unknown Unknown Uncoded 06/04/19 03:09 Lexapro TABS Allergy Unknown Unknown Uncoded 06/04/19 03:09 Macrobid CAPS Allergy Unknown Unknown Uncoded 06/04/19 03:09 Paxil TABS Allergy Unknown Unknown Uncoded 06/04/19 03:09 Singulair TABS Allergy Unknown Unknown Uncoded 06/04/19 03:09 Home Medications Home Medications Medication Instructions Recorded Confirmed Type flecainide 100 mg PO BID 03/27/18 06/08/19 History dabigatran etexilate 150 mg PO BID 07/05/18 06/08/19 History diclofenac sodium 1 % topical gel 4 g TOPICAL QID PRN #100 gm 02/18/19 06/08/19 Rx lisinopril 10 mg PO DAILY 03/07/19 06/08/19 History clorazepate dipotassium 7.5 mg 7.5 mg PO TID PRN #90 tab 05/20/19 06/08/19 Rx tablet glucosamine-chondroitin [Osteo 2 tab PO DAILY 06/04/19 06/08/19 History Bi-Flex] albuterol sulfate 2.5 mg INH Q6H PRN #75 ml 06/05/19 06/08/19 Rx amlodipine 2.5 mg PO HS #30 tab 06/05/19 06/08/19 Rx atorvastatin 40 mg PO HS #30 tab 06/05/19 06/08/19 Rx nebivolol 5 mg PO DAILY #30 tab 06/05/19 06/08/19 Rx Patient History Medical History A-fib (Chronic) Acute abdominal pain (Resolved) Acute abdominal pain (Resolved) Acute electrocardiogram changes (Acute) Acute hyponatremia (Acute) Anticoagulant long-term use Anxiety (Chronic) Asthma (Chronic) Asthma attack (Acute) Atrial fibrillation with RVR (Acute) Bradycardia Bradycardia (Acute) Cellulitis of left knee (Acute) Costochondritis (Acute) Hematuria (Resolved) History of pacemaker Hyperlipidemia Hypertension Hypertension Hyponatremia Junctional bradycardia Palpitations (Acute) Pneumonia (Acute) Pruritic rash (Acute) Sinus node dysfunction SSS (sick sinus syndrome) Subconjunctival hemorrhage of right eye (Acute) Syncope Urticaria (Acute) Surgical History Post-operative state S/P knee surgery Family History Mother Congestive heart failure Other Atrial fibrillation Social History Preferred Language: Tajik Communication Ability: Effective 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 Beliefs That Will Affect Care: None marital status: / Current Living Situation: Family Current Living Situation Comment: lives with son current occupational status: retired Feels Safe at Home: Yes Smoking Status: Never smoker Second Hand Exposure: No ; Hx Alcohol Use: No Hx Substance Use: No Childhood Exposure to Second-Hand Smoke: Yes caffeine: No Dental Care, Regularly: Yes Physical Activity Frequency: 3-4 Times per Week Seatbelt Use: always Review of Systems Review of Systems: All systems reviewed & are unremarkable except as noted in HPI & below She reports some anxiety lately due to his son recently undergoing surgery. Physical Exam Physical Exam: She is alert and oriented x3. Mood affect appear normal. She answered all questions appropriately. HEENT: Sclerae are anicteric. Pupils are equal and reactive to light and accommodation. Extraocular movements were intact. Neuro: Cranial nerves intact Neck: Examination of the submandibular region did not reveal any significant lymphadenopathy. Carotids are palpable bilaterally and free of bruits on auscultation. There was no evidence of jugular venous distention. The thyroid was not enlarged. Lungs: Lungs are clear to auscultation bilaterally. There are no rales wheezes or rhonchi. She has normal respiratory effort without use of accessory muscles. There is normal pulmonary excursion. Cardiac: The rhythm was regular. S1 and S2 were normal. There are no murmurs on examination. The PMI was not markedly displaced on palpation. Abdomen: The abdomen was soft and nontender. Extremities: Patient has bilateral radial pulses that are equal in intensity. There is no evidence cyanosis or clubbing. There was no evidence of significant peripheral edema bilaterally. Skin: There are no rashes noted on examination today. Results & Data Vital Signs (Past 12 Hours) Vital Signs Temp Pulse Pulse Resp BP BP BP 06/04/19 13:02 71 06/04/19 11:05 36.7 C 72 19 180/79 H 06/04/19 10:25 169/80 H 06/04/19 08:57 36.4 C L 70 18 184/91 H 184/91 H 06/04/19 08:23 75 18 177/89 H 06/04/19 07:36 79 18 157/83 H 06/04/19 07:34 06/04/19 07:00 74 16 176/80 H 06/04/19 05:31 75 16 171/92 H 06/04/19 04:08 74 16 168/82 H 06/04/19 03:39 75 16 186/84 H Pulse Ox 06/04/19 13:02 06/04/19 11:05 95 06/04/19 10:25 06/04/19 08:57 93 06/04/19 08:23 94 06/04/19 07:36 94 06/04/19 07:34 95 06/04/19 07:00 96 06/04/19 05:31 100 06/04/19 04:08 97 06/04/19 03:39 95 Laboratory Results Abnormal Lab Results 06/04/19 06/04/19 06/04/19 02:59 02:59 03:47 WBC 7.73 RBC 4.76 Hgb 14.6 Hct 43.1 MCV 90.5 MCH 30.7 MCHC 33.9 RDW Std Deviation 44.7 RDW Coeff of Mery 13.5 Plt Count 209 MPV 9.7 Immature Gran % (Auto) 0.3 Neut % (Auto) 53.9 Lymph % (Auto) 36.0 [place] % (Auto) 6.5 Eos % (Auto) 2.7 Baso % (Auto) 0.6 Immature Gran # (Auto) 0.02 Neut # (Auto) 4.17 Lymph # (Auto) 2.78 [place] # (Auto) 0.50 Eos # (Auto) 0.21 Baso # (Auto) 0.05 Sodium 133 L Potassium 4.1 Chloride 104 Carbon Dioxide 25 Anion Gap 4.0 BUN 16 Creatinine 1.16 Est Cr Clr Drug Dosing 39.6 Est GFR ( Amer) 52.6 Est GFR (Non-Af Amer) 45.4 BUN/Creatinine Ratio 13.9 Glucose 105 H Calcium 8.7 Magnesium 2.2 Total Bilirubin 0.3 AST 14 L ALT 21 Alkaline Phosphatase 51 Troponin I < 0.015 Total Protein 7.5 Albumin 3.9 Globulin 3.6 Albumin/Globulin Ratio 1.1 TSH 1.980 Urine Color Yellow Urine Appearance Clear Urine pH 6.0 Ur Specific [place] 1.009 Urine Protein Negative Urine Glucose (UA) Negative Urine Ketones Negative Urine Blood Negative Urine Nitrite Negative Urine Bilirubin Negative Urine Urobilinogen Negative Ur Leukocyte Esterase Negative Diagnostic Findings Head CT performed at the time of admission every any acute cardiopulmonary process. Chest x-ray obtained at time admission not reveal any acute cardiopulmonary findings Echocardiogram performed in January 14, 2018 revealed preserved LV systolic function, mild LVH and mild mitral regurgitation. I performed a complete device interrogation of her dual-chamber permanent pacemaker. Normal function. ECG Additional Comments: EKG obtained at the time of admission was normal. No significant ST or T-wave changes. PG Care Time/CCT Total # of Minutes Spent Total Time Spent with Patient: Total time spent is greater than 50% in coordination of care (as documented) at patient's floor/unit and/or counseling patient:
[2019-06-04] MEDS ORDERED: CLORAZEPATE DIPOTASSIUM 3.75 MG TAB PO SCH (21:00)
[2019-06-04] MEDS ORDERED: SIMVASTATIN 40 MG TAB PO SCH (21:00)
--- NOTE | 2019-06-05 08:14 | Electrocardiogram Report ---
Test Reason : Blood Pressure : / mmHG Vent. Rate : 071 BPM Atrial Rate : 071 BPM P-R Int : 252 ms QRS Dur : 100 ms QT Int : 414 ms P-R-T Axes : 073 004 036 degrees QTc Int : 449 ms Poor data quality, interpretation may be adversely affected Sinus rhythm with 1st degree A-V block Otherwise normal ECG Confirmed by Bk Kirkpatrick ([id number]) on 06/04/2019 5:41:36 PM Referred By: REFERRED SELF Confirmed By:Keven Kirkpatrick
[2019-06-05] MEDS: NEBIVOLOL HCL 5 MG TAB PO SCH (09:02)
[2019-06-05] MEDS: DABIGATRAN ETEXILATE 75 MG CAP PO SCH (09:02)
[2019-06-05] MEDS: lisinopriL 10 MG TAB PO SCH (09:03)
[2019-06-05] MEDS: FLECAINIDE ACETATE 100 MG TABLET PO SCH (09:03)
--- NOTE | 2019-06-05 16:08 | Cardiology Progress Note ---
Date of Service June 05, 2019 Assessment & Plan (1) Hypertensive urgency: Blood pressure back to normal today. She did receive several additional doses of antihypertensive yesterday. Unclear what precipitated the acute rise in her blood pressure. It possibly could been anxiety and high sodium intake. In any event would seem reasonable discharge her on intensified antihypertensive regimen. I would agree with changes made at the time of discharge. (2) Atrial fibrillation with RVR: Currently in sinus rhythm. Interrogation of her device can be performed during this admission. She should be continued on her anticoagulation indefinitely. (3) SSS (sick sinus syndrome): Normally functioning dual-chamber permanent pacemaker at last evaluation. Rate response was added. We can interrogate the device and see what her rate histograms have done recently given her complaint of fatigue. Subjective Patient is feeling much better today. Her headache appears to have resolved. She appears less anxious overall. She has been ambulatory around the rocha several times without symptoms. Review of Systems Review of Systems: Per HPI Physical Exam Physical Exam: She is alert and oriented x3. Mood affect appear normal. She answered all questions appropriately. HEENT: Sclerae are anicteric. Pupils are equal and reactive to light and accommodation. Extraocular movements were intact. Neuro: Cranial nerves intact Lungs: Lungs are clear to auscultation bilaterally. There are no rales wheezes or rhonchi. She has normal respiratory effort without use of accessory muscles. There is normal pulmonary excursion. Cardiac: The rhythm was regular. S1 and S2 were normal. There are no murmurs on examination. The PMI was not markedly displaced on palpation. Abdomen: The abdomen was soft and nontender. Extremities: Patient has bilateral radial pulses that are equal in intensity. There is no evidence cyanosis or clubbing. There was no evidence of significant peripheral edema bilaterally. Skin: There are no rashes noted on examination today. Results & Data Vital Signs (Past 12 Hours) Vital Signs Temp Pulse Pulse Resp BP BP Pulse Ox 06/05/19 12:42 36.7 C 67 18 123/74 167/83 H 95 06/05/19 12:18 36.7 C 67 18 123/74 167/83 H 95 06/05/19 12:13 36.7 C 67 18 123/74 167/83 H 95 06/05/19 11:53 36.7 C 67 18 167/83 H 95 06/05/19 08:00 64 06/05/19 06:40 36.4 C L 66 19 110/65 95 PG Care Time/CCT Total # of Minutes Spent Total Time Spent with Patient: Total time spent is greater than 50% in coordination of care (as documented) at patient's floor/unit and/or counseling patient:
[2019-06-06] MEDS ORDERED: NEBIVOLOL HCL 5 MG TAB PO SCH (09:00)
--- NOTE | 2019-06-10 22:22 | Discharge Summary ---
Date of Service June 05, 2019 Admission HPI Per Admitting Provider 78 y/o F Hx HTN, PAF, SSS - pacer, HLD, asthma. Presents with acute vertigo and nausea. Denies CP or SOB. The pt's BP was 215/115 on arrival to the ER. She was reportedly diaphoretic on presentation, however, she states she has been experiencing night sweats for > 2 months so that it may have been a unrelated symptom. She received Meclizine and Hydralazine in the ER and reports vast improvement at the time of admission. Her blood pressure persists at approximately 180 systolic. An EKG displayed a sinus rhythm. Labs were unremarkable. PMH: 1) HTN 2) HLD 3) PAF 4) Sick sinus syndrome - pacer 2019 5) Asthma Surgical: Pacer placement Social: Does not drink or smoke - maintains independence Family: Noncontributory due to pt's age Principal Diagnosis hypertensive urgency Discharge Exam General: AAO x 3, no distress ENT: No erythema or exudates, no thrush Eyes: GERARDO, EOMI Head and neck: Normocephalic, atraumatic, No JVD, neck is supple. Chest/heart: Nontender, S1,2, RRR, no murmurs, no gallops Lungs: CTAB, no wheezing or crackles Abdomen: Nontender, nondistended, BS+ Neuro: AAO x 3, speech is clear, no unilateral weakness or loss of sensation, coordination intact Musculoskeletal: No joint inflammation, muscle tenderness, FROM Skin: No acute rashes or ulcers Extremities: No clubbing, cyanosis, edema Discharge Data Allergies Allergy/AdvReac Type Severity Reaction Status Date / Time Bactrim Allergy Intermediate RASH Verified 06/20/17 07:58 sulfamethoxazole Allergy Intermediate RASH Verified 06/04/19 03:09 trimethoprim Allergy Intermediate RASH Verified 06/04/19 03:09 moxifloxacin Allergy Unknown unknown Verified 06/04/19 03:09 pollen extracts Allergy Unknown HAY FEVER Verified 06/04/19 03:09 Corticosteroids AdvReac Intermediate BECOMES Verified 06/04/19 03:09 (Glucocorticoids) "EMOTIONAL" celecoxib AdvReac Unknown PT STATES Verified 06/04/19 03:09 SHE DOESN'T TOLERATE, "FELT FAINT" Cipro AdvReac Unknown abdominal Verified 06/20/17 07:58 pain ciprofloxacin AdvReac Unknown abdominal Verified 06/04/19 03:09 pain escitalopram AdvReac Unknown dreams, Verified 06/04/19 03:09 abd pain montelukast AdvReac Unknown DRY MOUTH Verified 06/04/19 03:09 paroxetine AdvReac Unknown abd pain, Verified 06/04/19 03:09 dreams Avelox TABS Allergy Unknown Unknown Uncoded 06/04/19 03:09 Azithromycin PACK Allergy Unknown Unknown Uncoded 06/04/19 03:09 Doxycycline Hyclate CAPS Allergy Unknown Unknown Uncoded 06/04/19 03:09 Lexapro TABS Allergy Unknown Unknown Uncoded 06/04/19 03:09 Macrobid CAPS Allergy Unknown Unknown Uncoded 06/04/19 03:09 Paxil TABS Allergy Unknown Unknown Uncoded 06/04/19 03:09 Singulair TABS Allergy Unknown Unknown Uncoded 06/04/19 03:09 Consultations 06/04/19 04:28 ED Decision to Admit Stat 06/04/19 08:41 Consult Cardiology Routine Ordered Studies 06/04/19 02:59 CT head/brain wo con Urgent Hospital Course (1) Hypertensive urgency: 78 y/o F Hx HTN, PAF, SSS - pacer, HLD, asthma. Presents with acute vertigo and nausea. Denies CP or SOB. The pt's BP was 215/115 on arrival to the ER. She was reportedly diaphoretic on presentation, however, she states she has been experiencing night sweats for > 2 months so that it may have been a unrelated symptom. She received Meclizine and Hydralazine in the ER and reports vast improvement at the time of admission. Her blood pressure persists at approximately 180 systolic. An EKG displayed a sinus rhythm. Labs were unremarkable. 1) HTN urgency - vertigo and SBP > 200 - resolved - her SBP is 180 on admission - will allow her to take her daily HTN meds, monitor on telemetry and consult cardiology for outpt adjustments. I do not suspect a CVA considering complete resolution of vertigo with meclizine and the pt is anticoagulated regardless. Cont ASA, statin. On day 2, patient's BP improved. Increased Beta mesha to 5 mg as she was already taking this dose and added a calcium channel mesha. will recommend checking BP soon. 2) PAF - sinus on admission - cont Flecainide, Bystolic, Pradaxa 3) HLD - cont statin Full code - Pradaxa prophylaxis Toal time for this admit including review of labs, meds, imaging, records - discussion with pt and ER attending - 35 min Total Time Total Time Spent Total Time Spent (In Minutes): 32 Discharge Plan Discharge Items Patient Disposition: Home - Self-Care Reason For Visit: HTN URGENCY Discharge Diagnosis: Hypertensive Urgency Condition on Discharge: Fair Activity: Resume your previous activity Non-emergency contact: Primary Care Provider Call non-emergency contact if: you have any medication questions Follow-up/Referrals: Earl Braun MD [Primary Care Provider] - 06/10/19 2:30 pm (Please, follow up at Dr. Earl Braun's office with his associate, Lynsey Bailye PA-C, on SaturdayJune 10 at 2:30 pm. *If you need to change this appointment, call their office at [phone].) Diet: Heart Healthy Addtl Attending Provider Instructions: Will recommend that you followup with Dr. Hough later this month and keep your appointment. We had to switch your cholesterol medication as it interacted with the new blood pressure medicine. Also sent new script of nebivolol which is Bystolic, for 30 days. If tolerating this dose, then will consider sending a 90 day supply at your outpatient visit. Pending Studies at Discharge: No Stand-Alone Forms: My [facility] [employer], Smoking Cessation Medications and DC Order Prescriptions: New amlodipine 2.5 mg tablet 2.5 mg PO HS Qty: 30 RF: 0 atorvastatin 40 mg tablet 40 mg PO HS Qty: 30 RF: 0 nebivolol 5 mg tablet 5 mg PO DAILY Qty: 30 RF: 0 Continued diclofenac sodium 1 % gel 4 g topical QID PRN (Reason: Pain) Qty: 100 RF: 5 clorazepate dipotassium [Tranxene T-Tab] 7.5 mg tablet 7.5 mg PO TID PRN (Reason: anxiety) Qty: 90 RF: 0 dabigatran etexilate 150 mg capsule 150 mg PO BID RF: 0 glucosamine-chondroitin [Osteo Bi-Flex] 250-200 mg Tablet 2 tab PO DAILY RF: 0 albuterol sulfate 2.5 mg /3 mL (0.083 %) solution for nebulization 2.5 mg INH Q6H PRN (Reason: shortness of breath or wheezing) Qty: 75 RF: 5 flecainide 100 mg tablet 100 mg PO BID RF: 0 Discontinued nebivolol 2.5 mg tablet 2.5 mg PO DAILY Qty: 90 RF: 3 simvastatin 40 mg tablet 40 mg PO HS RF: 0 No Action lisinopril 10 mg tablet 10 mg PO DAILY Qty: 30 RF: 6 Discharge Orders: Discharge Order (Routine); Ordered 06/05/19 Ordered By: Pio Philip Admission Data Admit Date/Time: 06/04/19 07:03 Attending Provider: Pio Philip Admit Provider: Raheem Lindo Primary Care Provider: Earl Braun Other Providers: Raheem Lindo ; Remigio Fajardo Other Interventions: Discharge Summary Assessment (RN) Last Done: 06/05/19 12:42 DC Date/Time DO NOT enter until pt leaves facility: 06/05/19 13:17
== END 2019-06-05 13:17 | disposition home or self-care (01) | DRG 305 ==
LOC: ED 02:34 → 2S 07:03 → SUATTDRO 07:03 → INTOOBSV 07:03 → 2S 08:23

== ENCOUNTER 2021-04-12 16:51 | Observation (INO) ==
[2021-04-12 18:23] LABS: Basophils # (auto) 0.08 K/uL (0-0.2); Basophils % (auto) 0.9 %; Eosinophils # (auto) 0.25 K/uL (0-0.5); Eosinophils % (auto) 2.8 %; Hemoglobin 13.4 g/dL (12.0-16.0); Immature Granulocytes # (auto) 0.02 K/uL (0.00-0.02); Immature Granulocytes % (auto) 0.2 %; Lymphocytes # (auto) 2.96 K/uL (1.2-3.4); Lymphocytes % (auto) 32.8 %; Mean Corpuscular Hgb Conc 34.4 g/dL (32-36); Mean Corpuscular Volume 87.4 fL (80-100); Mean Platelet Volume 9.8 fL (7.4-10.4); Monocytes # (auto) 0.77 K/uL (0.11-0.59); Monocytes % (auto) 8.5 %; Neutrophils # (auto) 4.95 K/uL (1.4-6.5); Neutrophils % (auto) 54.8 %; Platelet Count 272 K/uL (130-400); RDW Coefficient of Variation 13.7 % (11.5-14.5); RDW Standard Deviation 43.7 fL (36.4-46.3); Red Blood Count 4.46 M/uL (4.2-5.4); White Blood Count 9.03 K/uL (4.8-10.8)
--- NOTE | 2021-04-12 18:28 | XRay Report ---
XR chest 1V portable CLINICAL HISTORY: Atypical chest pain. COMPARISON STUDY: Chest radiograph June 04, 2019. FINDINGS: Dual-lead left subclavian pacemaker is in place. Lung volumes are normal. Lungs are clear. There is no pneumothorax or pleural effusion. Cardiac size is normal. Mediastinal contours are normal . There is no evidence for pulmonary edema. IMPRESSION: No acute cardiopulmonary findings. ACT 112: Negative or not required by law. Electronically signed by: Prosper Mathews M.D. 04/12/2021 6:27 PM
[2021-04-12 18:40] LABS: Alanine Aminotransferase 25 U/L (12-78); Albumin Level 3.8 gm/dl (3.4-5.0); Aspartate Aminotransferase 15 U/L (15-37); BUN Creatinine Ratio 17.1 (10-20); Blood Urea Nitrogen 15 mg/dl (7-18); Calcium 9.2 mg/dl (8.5-10.1); Carbon Dioxide 21 mmol/L (21-32); Chloride 96 mmol/L (98-107); Creatinine Clr Calc Pharmacy 49.4 ml/min; Est GFR (African American) 70.5 ml/min; Est GFR (Non-African American) 60.8 ml/min; Glucose 112 mg/dl (70-99); Potassium 4.1 mmol/L (3.5-5.1); Sodium 126 mmol/L (136-145)
[2021-04-12 18:44] LABS: Alkaline Phosphatase 55 U/L (45-117); Bilirubin,Total 0.4 mg/dl (0.2-1); Globulin 3.6 gm/dl (2.5-4.0); Total Protein 7.4 gm/dl (6.4-8.2); Troponin I < 0.015 ng/ml (0-0.045)
[2021-04-12 18:45] LABS: INR 1.8 (0.9-1.1); Partial Thromboplastin Ratio 2.5; Prothrombin Time 17.6 Seconds (9.0-12.0)
[2021-04-12 18:47] LABS: Partial Thromboplastin Time 66.7 Seconds (21.0-31.0)
[2021-04-12] MEDS ORDERED: LABETALOL HCL IV 5 MG/ML 20ML IV STA (19:14)
[2021-04-12] MEDS: SODIUM CHLORIDE 0.9% 1000ML 1,000 ML IV SCH (19:34)
[2021-04-12 20:01] LABS: Appearance Urine Clear (Clear); Bacteria Urine Automated Negative (Negative); Bilirubin Urine Negative (Negative); Blood Urine 2+ (Negative); Color Urine Yellow; Glucose Urine UA Negative (Negative); Ketones Urine Negative (Negative); Leukocyte Esterase Urine Negative (Negative); Nitrite Urine Negative (Negative); Protein Urine Negative (Negative); Urobilinogen Urine Negative (Negative)
--- NOTE | 2021-04-12 20:27 | History & Physical Report ---
Date of Service April 12, 2021 Assessment & Plan (1) Hypertensive emergency: Plan: 80yo Female PMH: paroxysmal afib with pacemaker, anxiety, HLD, HTN, asthma here for elevated BP systolic >200. Hypertensive Emergency -BP 221/107 on admit -troponin neg -admit to PCU/tele -EKG atrial pacemaker with prolonged AV conduction -CXR no acute findings pacemaker present -recieved in ED NS 1000mls 125 mls/hr, labetalol 10mg IV last BP 160/89 1.5hr measurement 221/107, likely anxiety component as well -PRN metoprolol 5mg IV Q4hr if BP>180/120 -target BP 160/110 over next 24hr Hyponatramia -Na 126 on admit -recieved NS 1000mls 125/hr in ED -trend BMP -heart healthy diet -order serum osmo, urine osmo, urine sodium Anxiety -continue Clorazepate dipotassium HTN -continue amlodipine, lisinopril, nebivolol Atrial Fibrillation -continue flecainaide, Pradaxa HLD -continue atorvastatin (2) Anxiety: (3) Hyperlipidemia: (4) Paroxysmal atrial fibrillation: History of Present Illness Chief Complaint: HTN Primary Care Provider: Earl Braun MD 80yo Female PMH: paroxysmal afib with pacemaker, anxiety, HLD, HTN, asthma here for elevated BP systolic >200 with home BP cuff. Patient states she woke up at 3am, took her morning medication, was feeling anxious so she measured her BP and found it high. Patient states she has felt more fatigued since this morning, she usually wakes at 5am. Patient denies headache, change in vision, swelling in upper and lower extremities, nausea, vomitting, pain, SOB. Patient states her nebivolol was recently changed and she has been feeling anxious last month over her daughters bariatric surgery, denies any recent changes in diet or recent illness. Per patient, she has previously had an episode of elevated BP, she went to ther ER and it went down. Patient denies smoking alcohol, drinks 2c coffee daily. She lives with son, manages her own medications and takes them daily, at baseline walks on her own. Allergies Allergy/AdvReac Type Severity Reaction Status Date / Time sulfamethoxazole Allergy Intermediate RASH Verified 04/12/21 19:58 trimethoprim Allergy Intermediate RASH Verified 04/12/21 19:58 azithromycin Allergy Unknown CAN'T Verified 04/12/21 19:58 [From Zithromax Z-Moshe] REMEMBER doxycycline Allergy Unknown CAN'T Verified 04/12/21 19:58 REMEMBER fluoxetine Allergy Unknown CAN'T Verified 04/12/21 19:58 REMEMBER moxifloxacin Allergy Unknown unknown Verified 04/12/21 19:58 nitrofurantoin Allergy Unknown CAN'T Verified 04/12/21 19:58 [From Macrobid] REMEMBER pollen extracts Allergy Unknown HAY FEVER Verified 04/12/21 19:58 Corticosteroids AdvReac Intermediate BECOMES Verified 04/12/21 19:58 (Glucocorticoids) "EMOTIONAL" celecoxib AdvReac Unknown PT STATES Verified 04/12/21 19:58 SHE DOESN'T TOLERATE, "FELT FAINT" ciprofloxacin AdvReac Unknown abdominal Verified 04/12/21 19:58 pain escitalopram AdvReac Unknown dreams, Verified 04/12/21 19:58 abd pain montelukast AdvReac Unknown DRY MOUTH Verified 04/12/21 19:58 paroxetine AdvReac Unknown abd pain, Verified 04/12/21 19:58 dreams Home Medications Medication Instructions Recorded Confirmed Type cholecalciferol (vitamin D3) 25 25 mcg PO DAILY 03/02/20 04/12/21 History mcg (1,000 unit) capsule albuterol sulfate 2.5 mg INH Q4H PRN #75 ml 07/18/20 04/12/21 Rx albuterol sulfate 90 mcg/actuation 2 puff INH Q4H PRN #25.5 g 07/18/20 04/12/21 Rx aerosol inhaler (ProAir HFA) flecainide 100 mg tablet 100 mg PO BID #180 tab 10/27/20 04/12/21 Rx atorvastatin 40 mg tablet 40 mg PO HS #90 tab 11/09/20 04/12/21 Rx inhalational spacing device #1 ea 01/09/21 01/09/21 Rx (Aerochamber Mini) nebivolol 5 mg tablet 5 mg PO QAM tab 01/09/21 04/12/21 History diclofenac sodium 1 % topical gel 4 g TOPICAL QID PRN #100 gm 03/31/21 04/12/21 Rx clorazepate dipotassium 7.5 mg 7.5 mg PO Q8H PRN #90 tab 04/05/21 04/12/21 Rx tablet dabigatran etexilate 150 mg 150 mg PO BID 04/12/21 04/12/21 History capsule (Pradaxa) vit C 250 mg-vit E 90 mg-zinc 40 1 tab PO DAILY 04/12/21 04/12/21 History mg-copper 1 [id number] capsule (PreserVision AREDS-2) amlodipine 2.5 mg tablet 5 mg PO HS 30 Days #60 tab 04/13/21 Rx lisinopril 10 mg tablet 20 mg PO DAILY 30 Days #60 tab 04/13/21 Rx Past Med/Surg History Medical History A-fib Acute abdominal pain Acute abdominal pain Acute electrocardiogram changes Acute hyponatremia Anticoagulant long-term use Anxiety Asthma Asthma attack Atrial fibrillation with RVR Bradycardia Bradycardia Cellulitis of left knee Costochondritis Diaphoresis Dizziness Hematuria History of pacemaker Hyperlipidemia Hypertension Hypertension Hypertensive urgency Hyponatremia Junctional bradycardia Light-headed Nauseous Palpitations Pneumonia Pruritic rash Sinus node dysfunction SSS (sick sinus syndrome) Subconjunctival hemorrhage of right eye Syncope Urticaria Surgical History Post-operative state S/P knee surgery Family History Mother Congestive heart failure Heart disease Hypertension Other Atrial fibrillation Denies family history of Ovarian cancer Prostate cancer Myocardial infarction Breast cancer Lung cancer Colorectal cancer Social History Smoking Status: Never smoker Second Hand Exposure: No; Hx Alcohol Use: No Hx Substance Use: No Preferred Language: Greenlandic Communication Ability: Effective Visual Impairment: Diminished Hearing Ability: Normal Community Engagement Leader Required: No Beliefs That Will Affect Care: None marital status: / Current Living Situation: Family Current Living Situation Comment: son lives with her current occupational status: retired How many Children do You have: 2 Feels Safe at Home: Yes Childhood Exposure to Second-Hand Smoke: Yes caffeine: Yes (coffee in the mornings ) Dental Care, Regularly: Yes Physical Activity Frequency: Does not Exercise Seatbelt Use: always Sunscreen Use: Yes Assistive Devices: Glasses Review of Systems Review of Systems: Negative fever chills Negative headache dizziness Negative chest pain palpitations SOB Negative nausea vomitting diarrhea constipation Negative numbness tingling rash swelling Physical Exam Physical Exam: General: Well appearing, age appropriate Heart: RRR, +S1 S2, no murmurs/gallops/rubs Lungs: cta b/l, no wheezes/rales/rhonchi Abd: soft, NT/ND, +BS Extremities: no swelling, no rashes, no clubbing/cyanosis Psych:euthymic, calm, cooperative Skin: warm, dry, intact Results & Data Results & Data ([facility]) Vital Signs (Past 12 Hours) Vital Signs Temp Pulse Pulse Resp BP BP Pulse Ox 04/12/21 20:00 73 20 191/102 H 95 04/12/21 19:30 63 19 187/93 H 04/12/21 19:02 62 17 96 04/12/21 19:00 65 14 221/107 H 96 04/12/21 17:05 36.4 C L 73 20 191/91 H 97 Laboratory Results Laboratory Results WBC 9.03 K/uL (4.8-10.8) 04/12/21 17:29 RBC 4.46 M/uL (4.2-5.4) 04/12/21 17:29 Hgb 13.4 g/dL (12.0-16.0) 04/12/21 17:29 Hct 39.0 % (37-47) 04/12/21 17:29 MCV 87.4 fL (80-100) 04/12/21 17:29 MCH 30.0 pg (25-34) 04/12/21 17:29 MCHC 34.4 g/dL (32-36) 04/12/21 17:29 RDW Std Deviation 43.7 fL (36.4-46.3) 04/12/21 17:29 RDW Coeff of Mery 13.7 % (11.5-14.5) 04/12/21 17:29 Plt Count 272 K/uL (130-400) 04/12/21 17:29 MPV 9.8 fL (7.4-10.4) 04/12/21 17:29 Immature Gran % (Auto) 0.2 % 04/12/21 17:29 Neut % (Auto) 54.8 % 04/12/21 17:29 Lymph % (Auto) 32.8 % 04/12/21 17:29 [place] % (Auto) 8.5 % 04/12/21 17: Eos % (Auto) 2.8 % 04/12/21 17: Baso % (Auto) 0.9 % 04/12/21: Neut # (Auto) 4.95 K/uL (1.4-6.5) 04/12/21: Lymph # (Auto) 2.96 K/uL (1.2-3.4) 04/12/21: [place] # (Auto) 0.77 K/uL (0.11-0.59) H 04/12/21: Eos # (Auto) 0.25 K/uL (0-0.5) 04/12/21: Baso # (Auto) 0.08 K/uL (0-0.2) 04/12/21: Immature Gran # (Auto) 0.02 K/uL (0.00-0.02) 04/12/21: PT 17.6 Seconds (9.0-12.0) H 04/12/21: INR 1.8 (0.9-1.1) H 04/12/21: APTT 66.7 Seconds (21.0-31.0) H* 04/12/21: PTT Ratio 2.5 04/12/21: Sodium 126 mmol/L (136-145) L 04/12/21: Potassium 4.1 mmol/L (3.5-5.1) 04/12/21: Chloride 96 mmol/L (98-107) L 04/12/21: Carbon Dioxide 21 mmol/L (21-32) 04/12/21: Anion Gap 8.0 (3-11) 04/12/21: BUN 15 mg/dl (7-18) 04/12/21: Creatinine 0.90 mg/dl (0.6-1.2) 04/12/21: Est Cr Clr Drug Dosing 49.4 ml/min 04/12/21: Est GFR ( Amer) 70.5 ml/min 04/12/21: Est GFR (Non-Af Amer) 60.8 ml/min 04/12/21 17:29 BUN/Creatinine Ratio 17.1 (10-20) 04/12/21 17:29 Glucose 112 mg/dl (70-99) H 04/12/21 17:29 Calcium 9.2 mg/dl (8.5-10.1) 04/12/21 17:29 Total Bilirubin 0.4 mg/dl (0.2-1) 04/12/21 17:29 AST 15 U/L (15-37) 04/12/21 17:29 ALT 25 U/L (12-78) 04/12/21 17:29 Alkaline Phosphatase 55 U/L (45-117) 04/12/21 17:29 Troponin I < 0.015 ng/ml (0-0.045) 04/12/21 17: Total Protein 7.4 gm/dl (6.4-8.2) 04/12/21 17:29 Albumin 3.8 gm/dl (3.4-5.0) 04/12/21 17:29 Globulin 3.6 gm/dl (2.5-4.0) 04/12/21 17:29 Albumin/Globulin Ratio 1.0 (0.9-2) 04/12/21 17:29 Urine Color Yellow 04/12/21 19:37 Urine Appearance Clear (Clear) 04/12/21 19:37 Urine pH 6.0 (4.5-7.5) 04/12/21 19:37 Ur Specific [place] 1.020 (1.000-1.030) 04/12/21 19:37 Urine Protein Negative (Negative) 04/12/21 19:37 Urine Glucose (UA) Negative (Negative) 04/12/21 19:37 Urine Ketones Negative (Negative) 04/12/21 19:37 Urine Blood 2+ (Negative) H 04/12/21 19:37 Urine Nitrite Negative (Negative) 04/12/21 19:37 Urine Bilirubin Negative (Negative) 04/12/21 19:37 Urine Urobilinogen Negative (Negative) 04/12/21 19:37 Ur Leukocyte Esterase Negative (Negative) 04/12/21 19:37 Urine WBC (Auto) 5-10 /hpf (0-5) H 04/12/21 19:37 Urine RBC (Auto) 10-30 /hpf (0-4) H 04/12/21 19:37 U Hyaline Cast (Auto) 1-5 /lpf (0-5) 04/12/21 19:37 U Epithel Cells (Auto) 5-10 /lpf (0-5) H 04/12/21 19:37 Urine Bacteria (Auto) Negative (Negative) 04/12/21 19:37 COVID-19 Eval Order Covid19 at [facility] 04/12/21 19:37 Impressions Chest X-Ray 04/12/21 17:10 XR chest 1V portable CLINICAL HISTORY: Atypical chest pain. COMPARISON STUDY: Chest radiograph June 04, 2019. FINDINGS: Dual-lead left subclavian pacemaker is in place. Lung volumes are normal. Lungs are clear. There is no pneumothorax or pleural effusion. Cardiac size is normal. Mediastinal contours are normal. There is no evidence for pulmonary edema. IMPRESSION: No acute cardiopulmonary findings. ACT 112: Negative or not required by law. Electronically signed by: Prosper Mathews M.D. 04/12/2021 6:27 PM Medications Administered Current Inpatient Medications Sodium Chloride (Nss 1000ml) 1,000 mls @ 125 mls/hr IV .Q8H ADAM Stop: 05/12/21 19:14 Last Admin: 04/12/21 19:34 Dose: 125 mls/hr Documented by: Code Status & VTE Plan Code Status Full VTE Prophylaxis Plan VTE Prophylaxis will be ordered: Yes Supervising Physician Co-Signing Physician Notes Attending addendum: I have physically seen this patient, have supervised the medical residents activities, and agree with the H&P unless as otherwise noted. Assessment and Plan: Hypertensive emergency/hypertension/atrial fibrillation- The patient will be admitted to telemetry for serial cardiac enzymes, serial EKG's, cardiac rhythm monitoring and a 2-D echocardiogram with Dopplers. Initial troponin negative Initial blood pressure 227/107, improved to 160/80 After a single dose of labetalol 10 mg IV Likely a significant anxiety component as well Continue amlodipine, flecainide, lisinopril, nebivolol and Pradaxa Lopressor 5 mg IV every 4 hours as needed systolic blood pressure greater than 180 Consult cardiology Hyponatremia- Receiving 1 L normal saline from the ED Check serum osmolality and urine osmolality, with further recommendations Remaining orders and notations as noted Resident Activity Tracking Resident Involvement: Resident Care Provided Care Provided: Adult Hospital Medicine (1) Hyperlipidemia Hyperlipidemia type: mixed hyperlipidemia Qualified Code(s): E78.2 - Mixed hyperlipidemia
--- NOTE | 2021-04-12 21:52 | Emergency Department Note ---
History of Present Illness General Chief complaint: Hypertension Stated complaint: HIGH BP Time Seen by Provider: 04/12/21 18:50 History of Present Illness Provider complaint: Weakness high blood pressure Onset (ago): day(s) 1 Maximum Pain Intensity: 5 Current Pain Intensity: 0 Associated symptoms: + malaise and + weakness; no chest pain, no cough, no fever/chills, no headaches, no nausea/vomiting or no shortness of breath 80-year-old female presents emergency department with weakness. Patient reports she woke up this morning was feeling very weak. Patient reports she is been feeling weak all day. She denies any headache chest pain or difficulty breathing. Patient states she took her blood pressure today noticed was high so she came to the emergency department. She denies any abdominal pain nausea vomiting diarrhea melena or hematochezia. No hematuria. Home Medications Medication Instructions Recorded Confirmed Type cholecalciferol (vitamin D3) 25 25 mcg PO DAILY 03/02/20 04/12/21 History mcg (1,000 unit) capsule amlodipine 2.5 mg tablet 2.5 mg PO HS #90 tab 06/27/20 04/12/21 Rx albuterol sulfate 2.5 mg INH Q4H PRN #75 ml 07/18/20 04/12/21 Rx albuterol sulfate 90 mcg/actuation 2 puff INH Q4H PRN #25.5 g 07/18/20 04/12/21 Rx aerosol inhaler (ProAir HFA) flecainide 100 mg tablet 100 mg PO BID #180 tab 10/27/20 04/12/21 Rx atorvastatin 40 mg tablet 40 mg PO HS #90 tab 11/09/20 04/12/21 Rx inhalational spacing device #1 ea 01/09/21 01/09/21 Rx (Aerochamber Mini) nebivolol 5 mg tablet 5 mg PO QAM tab 01/09/21 04/12/21 History diclofenac sodium 1 % topical gel 4 g TOPICAL QID PRN #100 gm 03/31/21 04/12/21 Rx clorazepate dipotassium 7.5 mg 7.5 mg PO Q8H PRN #90 tab 04/05/21 04/12/21 Rx tablet dabigatran etexilate 150 mg 150 mg PO BID 11/10/21 11/10/21 History capsule (Pradaxa) lisinopril 10 mg tablet 10 mg PO DAILY 04/12/21 04/12/21 History vit C 250 mg-vit E 90 mg-zinc 40 1 tab PO DAILY 04/12/21 04/12/21 History mg-copper 1 [id number] capsule (PreserVision AREDS-2) Allergies Allergy/AdvReac Type Severity Reaction Status Date / Time sulfamethoxazole Allergy Intermediate RASH Verified 04/12/21 19:58 trimethoprim Allergy Intermediate RASH Verified 04/12/21 19:58 azithromycin Allergy Unknown CAN'T Verified 04/12/21 19:58 [From Zithromax Z-Moshe] REMEMBER doxycycline Allergy Unknown CAN'T Verified 04/12/21 19:58 REMEMBER fluoxetine Allergy Unknown CAN'T Verified 04/12/21 19:58 REMEMBER moxifloxacin Allergy Unknown unknown Verified 04/12/21 19:58 nitrofurantoin Allergy Unknown CAN'T Verified 04/12/21 19:58 [From Macrobid] REMEMBER pollen extracts Allergy Unknown HAY FEVER Verified 04/12/21 19:58 Corticosteroids AdvReac Intermediate BECOMES Verified 04/12/21 19:58 (Glucocorticoids) "EMOTIONAL" celecoxib AdvReac Unknown PT STATES Verified 04/12/21 19:58 SHE DOESN'T TOLERATE, "FELT FAINT" ciprofloxacin AdvReac Unknown abdominal Verified 04/12/21 19:58 pain escitalopram AdvReac Unknown dreams, Verified 04/12/21 19:58 abd pain montelukast AdvReac Unknown DRY MOUTH Verified 04/12/21 19:58 paroxetine AdvReac Unknown abd pain, Verified 04/12/21 19:58 dreams Past Med/Surg History Medical History A-fib Acute abdominal pain Acute abdominal pain Acute electrocardiogram changes Acute hyponatremia Anticoagulant long-term use Anxiety Asthma Asthma attack Atrial fibrillation with RVR Bradycardia Bradycardia Cellulitis of left knee Costochondritis Diaphoresis Dizziness Hematuria History of pacemaker Hyperlipidemia Hypertension Hypertension Hypertensive urgency Hyponatremia Junctional bradycardia Light-headed Nauseous Palpitations Pneumonia Pruritic rash Sinus node dysfunction SSS (sick sinus syndrome) Subconjunctival hemorrhage of right eye Syncope Urticaria Surgical History Post-operative state S/P knee surgery Family History Mother Congestive heart failure Heart disease Hypertension Other Atrial fibrillation Denies family history of Ovarian cancer Prostate cancer Myocardial infarction Breast cancer Lung cancer Colorectal cancer Social History Smoking Status: Never smoker Second Hand Exposure: No; Hx Alcohol Use: No Hx Substance Use: No Preferred Language: Hebrew Communication Ability: Effective Visual Impairment: Diminished Hearing Ability: Normal End Polisher Required: No Beliefs That Will Affect Care: None marital status: / Current Living Situation: Family Current Living Situation Comment: lives with son current occupational status: retired How many Children do You have: 2 Feels Safe at Home: Yes Childhood Exposure to Second-Hand Smoke: Yes caffeine: Yes (coffee in the mornings ) Dental Care, Regularly: Yes Physical Activity Frequency: Does not Exercise Seatbelt Use: always Sunscreen Use: Yes Assistive Devices: Glasses Review of Systems A total of 10 systems reviewed and were otherwise negative Physical Exam Vital Signs Vital Signs - 24 hr 04/12/21 17:05 04/12/21 19:00 04/12/21 19:02 Temperature 36.4 C L Temperature Source Skin Pulse Rate 73 62 Pulse Rate [Apical] 65 Pulse Rate from SpO2 Sensor 62 Pulse Rhythm Regular Pulse Strength Normal Respiratory Rate 20 14 17 Respiratory Effort / Characteristics Non-Labored Spontaneous Respiratory Depth Normal Respiratory Pattern Regular Blood Pressure 191/91 H Blood Pressure [Right Arm] 221/107 H Blood Pressure Mean 124 Blood Pressure Mean [Right Arm] 145 Pulse Oximetry 97 96 96 Oxygen Delivery Method Room Air Room Air Sepsis Recent Fever Within 48 Hours No Sepsis New/Unexplained Change in Mental Status N/A Sepsis Action Taken by Nursing No Action Required 04/12/21 19:30 04/12/21 20:00 04/12/21 20:30 Temperature Temperature Source Pulse Rate 63 73 74 Pulse Rate [Apical] Pulse Rate from SpO2 Sensor 71 Pulse Rhythm Pulse Strength Respiratory Rate 19 20 21 Respiratory Effort / Characteristics Respiratory Depth Respiratory Pattern Blood Pressure 187/93 H 191/102 H 160/89 H Blood Pressure [Right Arm] Blood Pressure Mean 124 131 112 Blood Pressure Mean [Right Arm] Pulse Oximetry 95 Oxygen Delivery Method Room Air Sepsis Recent Fever Within 48 Hours Sepsis New/Unexplained Change in Mental Status Sepsis Action Taken by Nursing 04/12/21 21:00 Temperature Temperature Source Pulse Rate 62 Pulse Rate [Apical] Pulse Rate from SpO2 Sensor Pulse Rhythm Pulse Strength Respiratory Rate 20 Respiratory Effort / Characteristics Respiratory Depth Respiratory Pattern Blood Pressure 184/93 H Blood Pressure [Right Arm] Blood Pressure Mean 123 Blood Pressure Mean [Right Arm] Pulse Oximetry Oxygen Delivery Method Sepsis Recent Fever Within 48 Hours Sepsis New/Unexplained Change in Mental Status Sepsis Action Taken by Nursing Physical Exam GENERAL: She is oriented to person, place, and time. She appears well-developed and well-nourished. She does not appear distressed. HENT: Exam performed. -Head: Normocephalic and atraumatic. -Right Ear: External ear normal. No mastoid tenderness. -Left Ear: External ear normal. No mastoid tenderness. -Mouth/Throat: The oropharynx is clear and moist. No trismus in the jaw. No dental abscesses or uvula swelling. No oropharyngeal exudate or tonsillar a bscesses. EYES: Conjunctivae and EOM are normal. Pupils are equal, round, and reactive to light. Right eye exhibits no discharge. Left eye exhibits no discharge. No scleral icterus. NECK: Normal range of motion. Neck supple. No JVD present. No spinous process tenderness present. No carotid bruit present. No rigidity. No tracheal deviation and normal range of motion present. No Brudzinski's sign and no Kernig's sign noted. CV: Normal rate, regular rhythm, normal heart sounds and intact distal pulses. There is no peripheral edema. Palpable radial pulses bue. PULM/CHEST: Effort normal and breath sounds normal. No respiratory distress. No stridor. She has no wheezes. She has no rales. -Chest Wall: She exhibits no tenderness. ABD: The abdomen is soft. Bowel sounds are normal. She has no distension. No mass is present. There is no tenderness. There is no rebound, no guarding, no Richter's sign and no tenderness at McBurney's point. Rovsig negative MUSC/SKEL: Normal range of motion. There is no peripheral edema, tenderness or deformity. LYMPH: No cervical adenopathy. NEURO: She is alert and oriented to person, place, and time. She has normal strength. No cranial nerve deficit or sensory deficit. Coordination and gait normal. GCS eye subscore is 4. GCS verbal subscore is 5. GCS motor subscore is 6. Cerebellar tests wnl. SKIN: Skin is warm and dry. She is not diaphoretic. PSYCH: She has a normal mood and affect. Behavior is normal. Judgment and thought content normal. Course Course 1849: The patient was evaluated in room C4. A complete history and physical exam was performed Cardiac monitoring: An order was placed for continuous cardiac monitoring. The monitor shows a rate of 70 with paced rhythm Patient was seen during a time of extreme volume and extreme acuity during the ID- pandemic. Nursing triage protocols were initiated and labs were drawn by protocol in the triage area. Patient reports that she has been compliant with all of her blood pressure medication. She states she took all of her blood pressure medication today. Patient is hypertensive in the emergency department. Labetalol 10 mg ordered for the patient. Labs show hyponatremia. This could be the reason of the patient's weakness. Patient will be started on IV fluids and will plan on admitting the patient to the [facility] team. Administered Medications Sodium Chloride (Nss 1000ml) 1,000 mls @ 125 mls/hr IV .Q8H [facility] Stop: 05/12/21 19:14 Last Admin: 04/12/21 19:34 Dose: 125 mls/hr Documented by: [id number] Discontinued Medications Labetalol HCl (Labetalol Hcl Iv 5 Mg/Ml 20ml) 10 mg IV NOW STA Stop: 04/12/21 19:15 Last Admin: 04/12/21 19:34 Dose: 10 mg Documented by: [id number] Cosigned by: [id number] Medical Decision Making Laboratory Data Result diagrams: 04/12/21 17:29 04/12/21 17:29 Lab Results 04/12/21 04/12/21 04/12/21 Range/Units 17:29 17:29 17:29 WBC 9.03 (4.8-10.8) K/uL RBC 4.46 (4.2-5.4) M/uL Hgb 13.4 (12.0-16.0) g/dL Hct 39.0 (37-47) % MCV 87.4 (80-100) fL MCH 30.0 (25-34) pg MCHC 34.4 (32-36) g/dL RDW Std Deviation 43.7 (36.4-46.3) fL RDW Coeff of Mery 13.7 (11.5-14.5) % Plt Count 272 (130-400) K/uL MPV 9.8 (7.4-10.4) fL Immature Gran % (Auto) 0.2 % Neut % (Auto) 54.8 % Lymph % (Auto) 32.8 % [place] % (Auto) 8.5 % Eos % (Auto) 2.8 % Baso % (Auto) 0.9 % Neut # (Auto) 4.95 (1.4-6.5) K/uL Lymph # (Auto) 2.96 (1.2-3.4) K/uL [place] # (Auto) 0.77 H (0.11-0.59) K/uL Eos # (Auto) 0.25 (0-0.5) K/uL Baso # (Auto) 0.08 (0-0.2) K/uL Immature Gran # (Auto) 0.02 (0.00-0.02) K/uL PT 17.6 H (9.0-12.0) Seconds INR 1.8 H (0.9-1.1) APTT 66.7 H* (21.0-31.0) Seconds PTT Ratio 2.5 Sodium 126 L (136-145) mmol/L Potassium 4.1 (3.5-5.1) mmol/L Chloride 96 L (98-107) mmol/L Carbon Dioxide 21 (21-32) mmol/L Anion Gap 8.0 (3-11) BUN 15 (7-18) mg/dl Creatinine 0.90 (0.6-1.2) mg/dl Est Cr Clr Drug Dosing 49.4 ml/min Est GFR ( Amer) 70.5 ml/min Est GFR (Non-Af Amer) 60.8 ml/min BUN/Creatinine Ratio 17.1 (10-20) Glucose 112 H (70-99) mg/dl Calcium 9.2 (8.5-10.1) mg/dl Total Bilirubin 0.4 (0.2-1) mg/dl AST 15 (15-37) U/L ALT 25 (12-78) U/L Alkaline Phosphatase 55 (45-117) U/L Troponin I < 0.015 (0-0.045) ng/ml Total Protein 7.4 (6.4-8.2) gm/dl Albumin 3.8 (3.4-5.0) gm/dl Globulin 3.6 (2.5-4.0) gm/dl Albumin/Globulin Ratio 1.0 (0.9-2) Urine Color Urine Appearance (Clear) Urine pH (4.5-7.5) Ur Specific [place] (1.000-1.030) Urine Protein (Negative) Urine Glucose (UA) (Negative) Urine Ketones (Negative) Urine Blood (Negative) Urine Nitrite (Negative) Urine Bilirubin (Negative) Urine Urobilinogen (Negative) Ur Leukocyte Esterase (Negative) Urine WBC (Auto) (0-5) /hpf Urine RBC (Auto) (0-4) /hpf U Hyaline Cast (Auto) (0-5) /lpf U Epithel Cells (Auto) (0-5) /lpf Urine Bacteria (Auto) (Negative) COVID-19 Eval Order SARS-CoV-2 (PCR) (Negative) 04/12/21 04/12/21 04/12/21 Range/Units 19:37 19:37 19:37 WBC (4.8-10.8) K/uL RBC (4.2-5.4) M/uL Hgb (12.0-16.0) g/dL Hct (37-47) % MCV (80-100) fL MCH (25-34) pg MCHC (32-36) g/dL RDW Std Deviation (36.4-46.3) fL RDW Coeff of Mery (11.5-14.5) % Plt Count (130-400) K/uL MPV (7.4-10.4) fL Immature Gran % (Auto) % Neut % (Auto) % Lymph % (Auto) % [place] % (Auto) % Eos % (Auto) % Baso % (Auto) % Neut # (Auto) (1.4-6.5) K/uL Lymph # (Auto) (1.2-3.4) K/uL [place] # (Auto) (0.11-0.59) K/uL Eos # (Auto) (0-0.5) K/uL Baso # (Auto) (0-0.2) K/uL Immature Gran # (Auto) (0.00-0.02) K/uL PT (9.0-12.0) Seconds INR (0.9-1.1) APTT (21.0-31.0) Seconds PTT Ratio Sodium (136-145) mmol/L Potassium (3.5-5.1) mmol/L Chloride (98-107) mmol/L Carbon Dioxide (21-32) mmol/L Anion Gap (3-11) BUN (7-18) mg/dl Creatinine (0.6-1.2) mg/dl Est Cr Clr Drug Dosing ml/min Est GFR ( Amer) ml/min Est GFR (Non-Af Amer) ml/min BUN/Creatinine Ratio (10-20) Glucose (70-99) mg/dl Calcium (8.5-10.1) mg/dl Total Bilirubin (0.2-1) mg/dl AST (15-37) U/L ALT (12-78) U/L Alkaline Phosphatase (45-117) U/L Troponin I (0-0.045) ng/ml Total Protein (6.4-8.2) gm/dl Albumin (3.4-5.0) gm/dl Globulin (2.5-4.0) gm/dl Albumin/Globulin Ratio (0.9-2) Urine Color Yellow Urine Appearance Clear (Clear) Urine pH 6.0 (4.5-7.5) Ur Specific [place] 1.020 (1.000-1.030) Urine Protein Negative (Negative) Urine Glucose (UA) Negative (Negative) Urine Ketones Negative (Negative) Urine Blood 2+ H (Negative) Urine Nitrite Negative (Negative) Urine Bilirubin Negative (Negative) Urine Urobilinogen Negative (Negative) Ur Leukocyte Esterase Negative (Negative) Urine WBC (Auto) 5-10 H (0-5) /hpf Urine RBC (Auto) 10-30 H (0-4) /hpf U Hyaline Cast (Auto) 1-5 (0-5) /lpf U Epithel Cells (Auto) 5-10 H (0-5) /lpf Urine Bacteria (Auto) Negative (Negative) COVID-19 Eval Order Covid19 at [facility] SARS-CoV-2 (PCR) NEGATIVE (Negative) Imaging Data Radiologist's Impression: Chest X-Ray 04/12/21 17:10 XR chest 1V portable CLINICAL HISTORY: Atypical chest pain. COMPARISON STUDY: Chest radiograph June 04, 2019. FINDINGS: Dual-lead left subclavian pacemaker is in place. Lung volumes are normal. Lungs are clear. There is no pneumothorax or pleural effusion. Cardiac size is normal. Mediastinal contours are normal. There is no evidence for pulmonary edema. IMPRESSION: No acute cardiopulmonary findings. ACT 112: Negative or not required by law. Electronically signed by: Prosper Mathews M.D. 04/12/2021 6:27 PM ECG Data Additional Comments: Paced rhythm with rate of 66. TN 314 QRS [address] elevation or ST depression. MDM Narrative The patient was evaluated in room C4. A complete history and physical exam was performed Cardiac monitoring: An order was placed for continuous cardiac monitoring. The monitor shows a rate of 70 with paced rhythm Patient was seen during a time of extreme volume and extreme acuity during the COVID- pandemic. Nursing triage protocols were initiated and labs were drawn by protocol in the triage area. Patient reports that she has been compliant with all of her blood pressure medication. She states she took all of her blood pressure medication today. Patient is hypertensive in the emergency department. Labetalol 10 mg ordered for the patient. Labs show hyponatremia. This could be the reason of the patient's weakness. Patient will be started on IV fluids and will plan on admitting the patient to the [facility] team. Impression & Plan Hyponatremia Discharge Plan Visit Data Chief Complaint: Hypertension Stated Complaint: HIGH BP Discharge Problem: Hyponatremia Patient Disposition: Admitted As Inpatient Forms Stand Alone Forms: My [facility] Prescriptions Prescriptions: No Action amlodipine 2.5 mg tablet 2.5 mg PO HS Qty: 90 RF: 3 albuterol sulfate [ProAir HFA] 90 mcg/actuation HFA aerosol inhaler 2 puff INH Q4H PRN (Reason: shortness of breath or wheezing) Qty: 25.5 RF: 3 albuterol sulfate 2.5 mg /3 mL (0.083 %) solution for nebulization 2.5 mg INH Q4H PRN (Reason: shortness of breath or wheezing) Qty: 75 RF: 5 flecainide 100 mg tablet 100 mg PO BID Qty: 180 RF: 3 atorvastatin 40 mg tablet 40 mg PO HS Qty: 90 RF: 3 diclofenac sodium 1 % gel 4 g topical QID PRN (Reason: Pain) Qty: 100 RF: 5 clorazepate dipotassium 7.5 mg tablet 7.5 mg PO Q8H PRN (Reason: anxiety) Qty: 90 RF: 0 nebivolol 5 mg tablet 5 mg PO QAM RF: 0 (DME) Aerochamber Mini Spacer See Rx Instructions .Route Qty: 1 RF: 0 cholecalciferol (vitamin D3) 25 mcg (1,000 unit) capsule 25 mcg PO DAILY RF: 0 PreserVision AREDS-2 250-90-40-1 mg Capsule 1 tab PO DAILY RF: 0 lisinopril 10 mg tablet 10 mg PO DAILY RF: 0 Pradaxa 150 mg capsule 150 mg PO BID RF: 0 Referrals Referrals: Earl Braun MD [Primary Care Provider] -
[2021-04-12] MEDS ORDERED: METOPROLOL TARTRATE 1 MG/ML VIAL IV PRN (23:05)
[2021-04-12] MEDS ORDERED: DICLOFENAC SOD 1% GEL 100 GM TUBE EXT PRN (23:05)
[2021-04-12] MEDS ORDERED: CLORAZEPATE DIPOTASSIUM 3.75 MG TAB PO PRN (23:05)
[2021-04-12] MEDS ORDERED: POLYETHYLENE (MIRALAX) 17 GM PACK PO PRN (23:05)
[2021-04-12] MEDS ORDERED: ACETAMINOPHEN 325 MG TAB PO PRN (23:05)
[2021-04-12] MEDS ORDERED: ONDANSETRON INJ 2 MG/ML 2 ML VIAL IV PRN (23:05)
[2021-04-13] MEDS: SODIUM CHLORIDE 0.9% 1000ML 1,000 ML IV SCH (03:05)
[2021-04-13 08:44] LABS: BUN Creatinine Ratio 13.5 (10-20); Blood Urea Nitrogen 12 mg/dl (7-18); Calcium 8.6 mg/dl (8.5-10.1); Carbon Dioxide 20 mmol/L (21-32); Chloride 99 mmol/L (98-107); Creatinine Clr Calc Pharmacy 49.2 ml/min; Est GFR (African American) 70.5 ml/min; Est GFR (Non-African American) 60.8 ml/min; Glucose 149 mg/dl (70-99); Sodium 127 mmol/L (136-145)
[2021-04-13] MEDS ORDERED: CHOLECALCIFEROL 1,000 UNITS 25 MCG TAB PO SCH (09:00)
[2021-04-13] MEDS ORDERED: FLECAINIDE ACETATE 100 MG TABLET PO SCH (09:00)
[2021-04-13] MEDS ORDERED: METOPROLOL TARTRATE 25 MG TAB PO SCH (09:00)
[2021-04-13] MEDS ORDERED: CEROVITE ADV FORMULA TAB PO SCH (09:00)
[2021-04-13] MEDS ORDERED: DABIGATRAN ETEXILATE 75 MG CAP PO SCH (09:00)
[2021-04-13] MEDS ORDERED: lisinopril 10 MG TAB PO SCH (09:00)
[2021-04-13] MEDS ORDERED: lisinopril 10 MG TAB PO ONE (11:59)
--- NOTE | 2021-04-13 13:09 | Discharge Summary ---
Date of Service April 13, 2021 Admission HPI Per Admitting Provider 80yo Female PMH: paroxysmal afib with pacemaker, anxiety, HLD, HTN, asthma here for elevated BP systolic >200 with home BP cuff. Patient states she woke up at 3am, took her morning medication, was feeling anxious so she measured her BP and found it high. Patient states she has felt more fatigued since this morning, she usually wakes at 5am. Patient denies headache, change in vision, swelling in upper and lower extremities, nausea, vomitting, pain, SOB. Patient states her nebivolol was recently changed and she has been feeling anxious last month over her daughters bariatric surgery, denies any recent changes in diet or recent illness. Per patient, she has previously had an episode of elevated BP, she went to ther ER and it went down. Patient denies smoking alcohol, drinks 2c coffee daily. She lives with son, manages her own medications and takes them daily, at baseline walks on her own. Principal Diagnosis Hypertensive urgency Discharge Exam General: well developed, well nourished, elderly female, no acute distress but anxious Neck: supple, trachea midline, normal thyroid Lungs: clear to auscultation bilaterally, normal respiratory effort, no accessory muscle use, no distress Heart: regular S1 and S2, no murmur, peripheral pulses normal, capillary refill normal, no edema Abdomen: soft, NT, ND, + BS, no hepatomegaly, normal to percussion Extremities: normal in appearance, no cyanosis, no petechiae, strength is 5/5 bilaterally Neuro: awake, cooperative, moves all extremities, no focal motor deficits, CN II-XII intact, sensation in extremities intact, normal speech Skin: warm, dry, no rash, normal turgor Psych: Awake, alert oriented x 3, very anxious, pacing about the room and into hallway Discharge Data Allergies Allergy/AdvReac Type Severity Reaction Status Date / Time sulfamethoxazole Allergy Intermediate RASH Verified 04/18/21 18:27 trimethoprim Allergy Intermediate RASH Verified 04/18/21 18:27 azithromycin Allergy Unknown CAN'T Verified 04/18/21 18:27 [From Zithromax Z-Moshe] REMEMBER doxycycline Allergy Unknown CAN'T Verified 04/18/21 18:27 REMEMBER fluoxetine Allergy Unknown CAN'T Verified 04/18/21 18:27 REMEMBER moxifloxacin Allergy Unknown unknown Verified 04/18/21 18:27 nitrofurantoin Allergy Unknown CAN'T Verified 04/18/21 18:27 [From Macrobid] REMEMBER pollen extracts Allergy Unknown HAY FEVER Verified 04/18/21 18:27 Corticosteroids AdvReac Intermediate BECOMES Verified 04/18/21 18:27 (Glucocorticoids) "EMOTIONAL" celecoxib AdvReac Unknown PT STATES Verified 04/18/21 18:27 SHE DOESN'T TOLERATE, "FELT FAINT" ciprofloxacin AdvReac Unknown abdominal Verified 04/18/21 18:27 pain escitalopram AdvReac Unknown dreams, Verified 04/18/21 18:27 abd pain montelukast AdvReac Unknown DRY MOUTH Verified 04/18/21 18:27 paroxetine AdvReac Unknown abd pain, Verified 04/18/21 18:27 dreams Consultations 04/12/21 19:21 ED Decision to Admit Stat Hospital Course (1) Hypertensive emergency: 80yo Female PMH: paroxysmal afib with pacemaker, anxiety, HLD, HTN, asthma here for elevated BP systolic >200. Hypertensive Emergency -BP 221/107 on admit -troponin neg -patient got a dose of Labetalol 10mg IV and had a good response to BP this morning her BP is 150-160/70-80 I reviewed and confirmed her medication list with her and her son over the phone in the morning she takes nebivolol 5mg and lisinopril 10mg in the evening she takes amlodipine 2.5mg on prior outpatient visits her BP was controlled she and her son both feel she was very anxious yesterday, BP goes up a lot when anxious she feels better now but getting more anxious the longer she stays in the hospital plan: will increase both her lisinopril to 20mg and her amlodipine to 5mg continue the nebivolol 5mg daily follow low sodium diet get regular exercise with walking, healthy anxiety relief follow up with PCP for BP check Hyponatramia -Na 126, up slightly to 127 she and her son admit that she does not eat a lot, good be poor solute intake sodium has been slightly low on prior admissions recommend that she gets at least 1500mg of sodium a day follow up with PCP, routine monitoring of sodium, could refer to nephrology is sodium levels continue to be low Anxiety -continue Clorazepate dipotassium HTN -continue amlodipine, lisinopril, nebivolol with dose increases as discussed above Atrial Fibrillation -continue flecainaide, Pradaxa HLD -continue atorvastatin (2) Anxiety: (3) Hyperlipidemia: (4) Paroxysmal atrial fibrillation: Total Time Total Time Spent Total Time Spent (In Minutes): 38 minutes Total Time Includes: Examination of the Patient, Discharge Planning, Medication Reconciliation and Other (speaking with son on the phone) Discharge Plan Discharge Items Patient Disposition: Home - Self-Care Reason For Visit: hypertensive urgency Discharge Diagnosis: Hypertensive urgency Hyponatremia Anxiety Condition on Discharge: Good Goals: control blood pressure by increasing amlodipine and lisinopril stay well nourished and well hydrated Activity: Resume your previous activity Non-emergency contact: Primary Care Provider Call non-emergency contact if: you have any medication questions Follow-up/Referrals: Earl Braun MD [Primary Care Provider] - (Follow up appointment scheduled with Toya Ayala PA-C.) Toya Ayala PA-C [Physician [employer]] - 04/20/21 11:00 am (Please follow up with Toya Ayala PA-C on 04/20/21 at 11:00 am. Please arrive to the office at 10:45 am for your appointment. If you are unable to keep this appointment, please call the office to reschedule at [phone].) Diet: Heart Healthy Addtl Attending Provider Instructions: Medications: - LISINOPRIL: increase to 20mg daily, you can take two 10mg tablets until you run out, then PCP can prescribe 20mg tablets, start with 20mg dose tomorrow morning - AMLODIPINE: increase to 5mg daily, you can take two 2.5mg tablets until you run out, then PCP can prescribe 5mg tablets, start taking tonight Hypertensive urgency blood pressure improved after Labetalol and resuming home medications likely triggered by pain in legs and anxiety recommend increasing lisinopril to 10mg and amlodipine to 5mg Hyponatremia: be sure you are getting enough sodium in diet, certainly with hypertension you don't want to much sodium reasonable amount of sodium would be 1000mg to 1500mg a day be sure you are not drinking too much water it is important to stay hydrated but if you just drink water and don't get enough salt this can dilute sodium levels drink liquids with electrolytes in them such as Gatorade, Vitamin Water etc. follow up with Dr. Braun for blood pressure check next week Pending Studies at Discharge: No Stand-Alone Forms: My [facility], Smoking Cessation Medications and DC Order Prescriptions: Continued albuterol sulfate [ProAir HFA] 90 mcg/actuation HFA aerosol inhaler 2 puff INH Q4H PRN (Reason: shortness of breath or wheezing) Qty: 25.5 RF: 3 albuterol sulfate 2.5 mg /3 mL (0.083 %) solution for nebulization 2.5 mg INH Q4H PRN (Reason: shortness of breath or wheezing) Qty: 75 RF: 5 flecainide 100 mg tablet 100 mg PO BID Qty: 180 RF: 3 atorvastatin 40 mg tablet 40 mg PO HS Qty: 90 RF: 3 diclofenac sodium 1 % gel 4 g topical QID PRN (Reason: Pain) Qty: 100 RF: 5 clorazepate dipotassium 7.5 mg tablet 7.5 mg PO Q8H PRN (Reason: anxiety) Qty: 90 RF: 0 nebivolol 5 mg tablet 5 mg PO QAM RF: 0 (DME) Aerochamber Mini Spacer See Rx Instructions .Route Qty: 1 RF: 0 cholecalciferol (vitamin D3) 25 mcg (1,000 unit) capsule 25 mcg PO DAILY RF: 0 PreserVision AREDS-2 250-90-40-1 mg Capsule 1 tab PO DAILY RF: 0 Pradaxa 150 mg capsule 150 mg PO BID RF: 0 Changed amlodipine 2.5 mg tablet 5 mg PO HS 30 Days Qty: 60 RF: 3 lisinopril 10 mg tablet 20 mg PO DAILY 30 Days Qty: 60 RF: 3 Discharge Orders: Discharge Order (Routine); Ordered 04/13/21 Ordered By: Claudio Ferreira/Other Patient Handouts: Controlling High Blood Pressure, Blood Pressure Check Steps Admission Data Admit Date/Time: 04/12/21 21:01 Attending Provider: Claudio Hyde Admit Provider: Magdalene Eaton Primary Care Provider: Earl Braun Other Providers: Bala Richter Other Interventions: Discharge Summary Assessment (RN) Last Done: 04/13/21 13:58 Coding Level of Care Code 04135 OBS Care - Discharge Diagnoses Hypertensive emergency I16.1 Anxiety F41.9 Hyperlipidemia E78.2 Hyperlipidemia type: mixed hyperlipidemia Paroxysmal atrial fibrillation I48.0
--- NOTE | 2021-04-13 19:35 | Electrocardiogram Report ---
Test Reason : Blood Pressure : / mmHG Vent. Rate : 066 BPM Atrial Rate : 066 BPM P-R Int : 314 ms QRS Dur : 108 ms QT Int : 428 ms P-R-T Axes : -29 046 030 degrees QTc Int : 448 ms Atrial-paced rhythm with prolonged AV conduction Abnormal ECG When compared with ECG of 04-JUN-2019 02:48, Electronic atrial pacemaker has replaced Sinus rhythm Confirmed by Reid Eckert ([id number]) on 04/13/2021 7:35:00 PM Referred By: REFERRED SELF Confirmed By:Reid Eckert
--- NOTE | 2021-04-13 19:48 | Billing Data ---
Date of Service April 13, 2021 Coding Level of Care Code INT OBSERVATION CARE 70M LVL 3
[2021-04-13] MEDS ORDERED: amLODIPine BESYLATE 5 MG TAB PO SCH (21:00)
[2021-04-13] MEDS ORDERED: ATORVASTATIN 40 MG TAB PO SCH (21:00)
== END 2021-04-13 14:15 | disposition home or self-care (01) ==
LOC: 2S 16:51 → ED 16:51 → SUATTDRO 21:01 → 2S 22:41

== ENCOUNTER 2021-08-02 07:13 | Inpatient (IN) ==
[2021-08-02] MEDS ORDERED: SODIUM CHLORIDE 0.9% 1000ML 500 ML IV ONE (07:34)
[2021-08-02] MEDS ORDERED: cefTRIAXone SODIUM 1,000 MG/50 ML BAG IV STA (07:36)
--- NOTE | 2021-08-02 07:36 | Emergency Department Note ---
Impression & Plan Acute hyponatremia, Weakness, Acute UTI ED Provider Note NAME: MONTANA BLACKWOOD AGE: 80 SEX: F : 1940 ARRIVES VIA: Walk-In INFORMANT: Patient ED PROVIDER(S): Robert Barrios DO CHIEF COMPLAINT: Abdominal pain HPI: Patient is a 80-year-old female who presents the ER for abdominal pain. Patient notes that started within the past 24 hours. For the past 3 to 4 months she has been also having dysuria, urgency, and frequency which is unchanged. She denies any fevers. No headache or change in vision. No chest pain or shortness of breath. No other exacerbating or remitting factors. Abdominal pain is just right of her umbilicus and constant. She also admits to achiness in her legs and an upset stomach. She believes that this is all related to Azo as she just started taking this 2 days ago. She gave a urine sample 2 days ago as well she had these persistent symptoms over the past 3 months. Is currently being followed by the PCP. ROS: See above HPI for pertinent positives & negatives. A total of 10 systems reviewed and were otherwise negative. PAST MEDICAL HISTORY:See Below PAST SURGICAL HISTORY:See Below FAMILY HISTORY:See Below SOCIAL HISTORY:See Below HOME MEDICATIONS:See Below ALLERGIES:See Below VITALS:See Below PHYSICAL EXAMINATION: GENERAL: Sitting up in bed, alert, well appearing, well nourished, no distress, non-toxic EYE EXAM: normal conjunctiva. PERRL and EOM's grossly intact. OROPHARYNX: no exudate, no erythema, lips, buccal mucosa, and tongue normal and mucous membranes are moist NECK: supple, no nuchal rigidity, no adenopathy, non-tender LUNGS: Clear to auscultation. Normal chest wall mechanics HEART: no murmurs, S1 normal and S2 normal ABDOMEN: abdomen soft, non-tender, normo-active bowel sounds, no masses, no rebound or guarding. UPPER EXTREMITIES: upper extremities are grossly normal. LOWER EXTREMITIES: No pitting edema. NEURO EXAM: Normal sensorium, cranial nerves II-XII grossly intact, normal spee ch, no gross weakness of arms, no gross weakness of legs. MEDICAL DECISION MAKING: Patient is a 80-year-old female who presents the ER for weakness associated with leg pain dysuria urgency frequency. IV was established blood work was obtained. Labs show no significant leukocytosis or anemia. BMP with a significant hyponatremia 123 down from a baseline of what appears to be 1 27-1 28. Glucose was appropriate. LFTs bilirubin were unremarkable. Lipase was normal. UA with nitrites leuks but only 1-5 whites. Recent culture 2 days ago has some pinpoint growth. Patient was given IV Rocephin. She was given some IV fluids. She was updated bedside. With her belly pain CT abdomen pelvis was performed as the urinary symptoms have been present for over 3 months to rule out any other etiologies. Due to the hyponatremia and weakness she was discussed with the hospitalist Dr. Stanley Navarrete for further evaluation. Triage Nursing notes reviewed. Limited review of prior medical records performed Vital Signs: reviewed and remarkable for HTN Differential diagnosis: Differential diagnoses includes but is not limited to gastritis, peptic ulcer disease, GERD, gallbladder disease, pancreatitis, small bowel obstruction, acute coronary syndrome, pericarditis, ischemic bowel, irritable bowel disease, irritable bowel syndrome, appendicitis, diverticulitis, malignancy, hernia, urinary tract infection, torsion, [/ectopic (if female)], perforation, trauma, infectious. ER treatment provided: See below Diagnostics interpreted by me: ECG: none Cardiac Monitoring: An order was placed for continuous cardiac monitoring. The monitor shows a rate of 62 with sinus rhythm. Laboratory studies: As stated above and show below. Imaging studies: CT abdomen pelvis was unremarkable Consultation(s): Discussed with [facility]hospital[facility] working with Stanley Navarrete for further evaluation Procedures: none Critical Care: None Past Med/Surg History Medical History (Updated 08/02/21 @ 12:31 by Robert Barrios DO) A-fib Acute abdominal pain Acute abdominal pain Acute electrocardiogram changes Acute hyponatremia Anticoagulant long-term use Anxiety Asthma Asthma attack Atrial fibrillation with RVR Bradycardia Bradycardia Cellulitis of left knee Costochondritis Diaphoresis Dizziness Hematuria History of pacemaker Hyperlipidemia Hypertension Hypertension Hypertensive urgency Hyponatremia Junctional bradycardia Light-headed Nauseous Palpitations Pneumonia Pruritic rash Sinus node dysfunction SSS (sick sinus syndrome) Subconjunctival hemorrhage of right eye Syncope Urticaria Surgical History Post-operative state S/P knee surgery Family History Mother Congestive heart failure Heart disease Hypertension Other Atrial fibrillation Denies family history of Ovarian cancer Prostate cancer Myocardial infarction Breast cancer Lung cancer Colorectal cancer Social History Smoking Status: Never smoker Second Hand Exposure: No; Hx Alcohol Use: No Hx Substance Use: No Preferred Language: Gabonese Communication Ability: Effective Visual Impairment: Diminished Hearing Ability: Normal Dramatic Teacher Required: No Beliefs That Will Affect Care: None marital status: / Current Living Situation: Family Current Living Situation Comment: son lives with her current occupational status: retired How many Children do You have: 2 Feels Safe at Home: Yes Childhood Exposure to Second-Hand Smoke: Yes caffeine: Yes (coffee in the mornings ) Dental Care, Regularly: Yes Physical Activity Frequency: Does not Exercise Seatbelt Use: always Sunscreen Use: Yes Assistive Devices: Glasses Allergies Allergies Allergy/AdvReac Type Severity Reaction Status Date / Time sulfamethoxazole Allergy Intermediate RASH Verified 06/01/21 14:24 trimethoprim Allergy Intermediate RASH Verified 06/01/21 14:24 azithromycin Allergy Unknown CAN'T Verified 06/01/21 14:24 [From Zithromax Z-Moshe] REMEMBER doxycycline Allergy Unknown CAN'T Verified 06/01/21 14:24 REMEMBER fluoxetine Allergy Unknown CAN'T Verified 06/01/21 14:24 REMEMBER moxifloxacin Allergy Unknown unknown Verified 06/01/21 14:24 nitrofurantoin Allergy Unknown CAN'T Verified 06/01/21 14:24 [From Macrobid] REMEMBER pollen extracts Allergy Unknown HAY FEVER Verified 06/01/21 14:24 Corticosteroids AdvReac Intermediate BECOMES Verified 06/01/21 14:24 (Glucocorticoids) "EMOTIONAL" celecoxib AdvReac Unknown PT STATES Verified 06/01/21 14:24 SHE DOESN'T TOLERATE, "FELT FAINT" ciprofloxacin AdvReac Unknown abdominal Verified 06/01/21 14:24 pain escitalopram AdvReac Unknown dreams, Verified 06/01/21 14:24 abd pain montelukast AdvReac Unknown DRY MOUTH Verified 06/01/21 14:24 paroxetine AdvReac Unknown abd pain, Verified 06/01/21 14:24 dreams Home Meds Home Medications Medication Instructions Recorded Confirmed cholecalciferol (vitamin D3) 25 25 mcg PO DAILY 03/02/20 08/02/21 mcg (1,000 unit) capsule dabigatran etexilate 150 mg 150 mg PO BID 04/12/21 08/02/21 capsule (Pradaxa) vit C 250 mg-vit E 90 mg-zinc 40 1 tab PO DAILY 04/12/21 08/02/21 mg-copper 1 [id number] capsule (PreserVision AREDS-2) Previous Rx's Medication Instructions Recorded albuterol sulfate 2.5 mg INH Q4H PRN #75 ml 07/18/20 albuterol sulfate 90 mcg/actuation 2 puff INH Q4H PRN #25.5 g 07/18/20 aerosol inhaler (ProAir HFA) flecainide 100 mg tablet 100 mg PO BID #180 tab 10/27/20 atorvastatin 40 mg tablet 40 mg PO HS #90 tab 11/09/20 amlodipine 2.5 mg tablet 5 mg PO HS 30 Days #60 tab 04/13/21 lisinopril 10 mg tablet 20 mg PO DAILY 30 Days #60 tab 04/13/21 fosfomycin tromethamine 3 gram 1 packet PO ONCE 1 Days #1 ea 06/20/21 oral packet diclofenac sodium 1 % topical gel 4 g TOPICAL QID PRN #100 gm 06/22/21 nebivolol 5 mg tablet 5 mg PO QAM #90 tab 06/28/21 clorazepate dipotassium 7.5 mg 7.5 mg PO Q8H PRN #90 tab 07/27/21 tablet Results & Data (ED) Vital Signs Vital Signs - 24 hr 08/02/21 07:17 08/02/21 08:03 08/02/21 09:40 Temperature 36.3 C L Temperature Source Temporal Artery Scan Pulse Rate 65 90 Pulse Rate [Finger] 90 Pulse Rate from SpO2 Sensor Pulse Rhythm Regular Pulse Rhythm [Finger] Regular Pulse Strength [Finger] Normal Respiratory Rate 14 18 Respiratory Effort / Characteristics Non-Labored Spontaneous Respiratory Depth Normal Respiratory Pattern Regular Blood Pressure 158/80 H Blood Pressure [Left Arm] 172/89 H 180/84 H Blood Pressure Mean 106 Blood Pressure Mean [Left Arm] 116 116 Blood Pressure Position [Left Arm] Lying Pulse Oximetry 94 92 92 Oxygen Delivery Method Room Air Room Air Room Air Sepsis New/Unexplained Change in Mental Status No Sepsis Action Taken by Nursing No Action Required Pulse Oximetry Post Tiitration 92 08/02/21 09:42 08/02/21 10:23 08/02/21 10:30 Temperature Temperature Source Pulse Rate 67 68 Pulse Rate [Finger] 62 Pulse Rate from SpO2 Sensor 67 68 Pulse Rhythm Pulse Rhythm [Finger] Pulse Strength [Finger] Respiratory Rate 20 14 Respiratory Effort / Characteristics Respiratory Depth Respiratory Pattern Blood Pressure Blood Pressure [Left Arm] Blood Pressure Mean Blood Pressure Mean [Left Arm] Blood Pressure Position [Left Arm] Pulse Oximetry 93 92 Oxygen Delivery Method Sepsis New/Unexplained Change in Mental Status Sepsis Action Taken by Nursing Pulse Oximetry Post Tiitration Laboratory Data Result diagrams: 08/02/21 08:00 08/02/21 08:00 Lab Results 08/02/21 08/02/21 08/02/21 Range/Units 07:41 07:41 07:41 WBC (4.8-10.8) K/uL RBC (4.2-5.4) M/uL Hgb (12.0-16.0) g/dL Hct (37-47) % MCV (80-100) fL MCH (25-34) pg MCHC (32-36) g/dL RDW Std Deviation (36.4-46.3) fL RDW Coeff of Mery (11.5-14.5) % Plt Count (130-400) K/uL MPV (7.4-10.4) fL Immature Gran % (Auto) % Neut % (Auto) % Lymph % (Auto) % [place] % (Auto) % Eos % (Auto) % Baso % (Auto) % Neut # (Auto) (1.4-6.5) K/uL Lymph # (Auto) (1.2-3.4) K/uL [place] # (Auto) (0.11-0.59) K/uL Eos # (Auto) (0-0.5) K/uL Baso # (Auto) (0-0.2) K/uL Immature Gran # (Auto) (0.00-0.02) K/uL Sodium (136-145) mmol/L Potassium (3.5-5.1) mmol/L Chloride (98-107) mmol/L Carbon Dioxide (21-32) mmol/L Anion Gap (3-11) BUN (6-23) mg/dl Creatinine (0.6-1.2) mg/dl Est Cr Clr Drug Dosing ml/min Est GFR ( Amer) ml/min Est GFR (Non-Af Amer) ml/min BUN/Creatinine Ratio (10-20) Glucose (70-99(Fasting)) mg/dl Osmolality (280-300) mOsm/kg Calcium (8.5-10.1) mg/dl Total Bilirubin (0.2-1.0) mg/dl AST (13-39) U/L ALT (7-52) U/L Alkaline Phosphatase (34-104) U/L Total Protein (6.0-8.3) gm/dl Albumin (3.4-5.0) gm/dl Globulin (2.5-4.0) gm/dl Albumin/Globulin Ratio (0.9-2) Lipase (11-82) U/L Urine Color Dark Yellow Urine Appearance Clear (Clear) Urine pH 7.0 (4.5-7.5) Ur Specific [place] 1.013 (1.000-1.030) Urine Protein Negative (Negative) Urine Glucose (UA) Negative (Negative) Urine Ketones Negative (Negative) Urine Blood 1+ H (Negative) Urine Nitrite Positive A (Negative) Urine Bilirubin Negative (Negative) Urine Urobilinogen Negative (Negative) Ur Leukocyte Esterase Trace H (Negative) Urine WBC (Auto) 1-5 (0-5) /hpf Urine RBC (Auto) 5-10 H (0-4) /hpf U Hyaline Cast (Auto) 1-5 (0-5) /lpf U Epithel Cells (Auto) 10-20 H (0-5) /lpf Urine Bacteria (Auto) Negative (Negative) Urine Osmolality 362 L (500-800) mOsm/kg Ur Random Sodium 43 mmol/L SARS-CoV-2, RNA, NAAT (NEGATIVE) 08/02/21 08/02/21 08/02/21 Range/Units 08:00 08:00 10:45 WBC 6.24 (4.8-10.8) K/uL RBC 4.41 (4.2-5.4) M/uL Hgb 14.1 (12.0-16.0) g/dL Hct 39.7 (37-47) % MCV 90.0 (80-100) fL MCH 32.0 (25-34) pg MCHC 35.5 (32-36) g/dL RDW Std Deviation 42.3 (36.4-46.3) fL RDW Coeff of Mery 12.9 (11.5-14.5) % Plt Count 253 (130-400) K/uL MPV 9.5 (7.4-10.4) fL Immature Gran % (Auto) 0.2 % Neut % (Auto) 57.8 % Lymph % (Auto) 30.0 % [place] % (Auto) 9.8 % Eos % (Auto) 1.6 % Baso % (Auto) 0.6 % Neut # (Auto) 3.61 (1.4-6.5) K/uL Lymph # (Auto) 1.87 (1.2-3.4) K/uL [place] # (Auto) 0.61 H (0.11-0.59) K/uL Eos # (Auto) 0.10 (0-0.5) K/uL Baso # (Auto) 0.04 (0-0.2) K/uL Immature Gran # (Auto) 0.01 (0.00-0.02) K/uL Sodium 123 L (136-145) mmol/L Potassium 4.5 (3.5-5.1) mmol/L Chloride 94 L (98-107) mmol/L Carbon Dioxide 22 (21-32) mmol/L Anion Gap 7 (3-11) BUN 23 (6-23) mg/dl Creatinine 1.00 (0.6-1.2) mg/dl Est Cr Clr Drug Dosing 44.2 ml/min Est GFR ( Amer) 62.1 ml/min Est GFR (Non-Af Amer) 53.5 ml/min BUN/Creatinine Ratio 23.0 H (10-20) Glucose 106 H (70-99(Fasting)) mg/dl Osmolality 275 L (280-300) mOsm/kg Calcium 9.0 (8.5-10.1) mg/dl Total Bilirubin 0.5 (0.2-1.0) mg/dl AST 15 (13-39) U/L ALT 14 (7-52) U/L Alkaline Phosphatase 52 (34-104) U/L Total Protein 6.9 (6.0-8.3) gm/dl Albumin 4.4 (3.4-5.0) gm/dl Globulin 2.5 (2.5-4.0) gm/dl Albumin/Globulin Ratio 1.8 (0.9-2) Lipase 34 (11-82) U/L Urine Color Urine Appearance (Clear) Urine pH (4.5-7.5) Ur Specific [place] (1.000-1.030) Urine Protein (Negative) Urine Glucose (UA) (Negative) Urine Ketones (Negative) Urine Blood (Negative) Urine Nitrite (Negative) Urine Bilirubin (Negative) Urine Urobilinogen (Negative) Ur Leukocyte Esterase (Negative) Urine WBC (Auto) (0-5) /hpf Urine RBC (Auto) (0-4) /hpf U Hyaline Cast (Auto) (0-5) /lpf U Epithel Cells (Auto) (0-5) /lpf Urine Bacteria (Auto) (Negative) Urine Osmolality (500-800) mOsm/kg Ur Random Sodium mmol/L SARS-CoV-2, RNA, NAAT (NEGATIVE) 08/02/21 Range/Units Unknown WBC (4.8-10.8) K/uL RBC (4.2-5.4) M/uL Hgb (12.0-16.0) g/dL Hct (37-47) % MCV (80-100) fL MCH (25-34) pg MCHC (32-36) g/dL RDW Std Deviation (36.4-46.3) fL RDW Coeff of Mery (11.5-14.5) % Plt Count (130-400) K/uL MPV (7.4-10.4) fL Immature Gran % (Auto) % Neut % (Auto) % Lymph % (Auto) % [place] % (Auto) % Eos % (Auto) % Baso % (Auto) % Neut # (Auto) (1.4-6.5) K/uL Lymph # (Auto) (1.2-3.4) K/uL [place] # (Auto) (0.11-0.59) K/uL Eos # (Auto) (0-0.5) K/uL Baso # (Auto) (0-0.2) K/uL Immature Gran # (Auto) (0.00-0.02) K/uL Sodium (136-145) mmol/L Potassium (3.5-5.1) mmol/L Chloride (98-107) mmol/L Carbon Dioxide (21-32) mmol/L Anion Gap (3-11) BUN (6-23) mg/dl Creatinine (0.6-1.2) mg/dl Est Cr Clr Drug Dosing ml/min Est GFR ( Amer) ml/min Est GFR (Non-Af Amer) ml/min BUN/Creatinine Ratio (10-20) Glucose (70-99(Fasting)) mg/dl Osmolality (280-300) mOsm/kg Calcium (8.5-10.1) mg/dl Total Bilirubin (0.2-1.0) mg/dl AST (13-39) U/L ALT (7-52) U/L Alkaline Phosphatase (34-104) U/L Total Protein (6.0-8.3) gm/dl Albumin (3.4-5.0) gm/dl Globulin (2.5-4.0) gm/dl Albumin/Globulin Ratio (0.9-2) Lipase (11-82) U/L Urine Color Urine Appearance (Clear) Urine pH (4.5-7.5) Ur Specific [place] (1.000-1.030) Urine Protein (Negative) Urine Glucose (UA) (Negative) Urine Ketones (Negative) Urine Blood (Negative) Urine Nitrite (Negative) Urine Bilirubin (Negative) Urine Urobilinogen (Negative) Ur Leukocyte Esterase (Negative) Urine WBC (Auto) (0-5) /hpf Urine RBC (Auto) (0-4) /hpf U Hyaline Cast (Auto) (0-5) /lpf U Epithel Cells (Auto) (0-5) /lpf Urine Bacteria (Auto) (Negative) Urine Osmolality (500-800) mOsm/kg Ur Random Sodium mmol/L SARS-CoV-2, RNA, NAAT NEGATIVE (NEGATIVE) Administered Medications Discontinued Medications Sodium Chloride (Nss 1000ml) 500 mls @ 999 mls/hr IV .Q31M ONE Stop: 08/02/21 08:04 Last Infusion: 08/02/21 09:00 Dose: 0 mls/hr Documented by: [id number] Admin: 08/02/21 07:56 Dose: 999 mls/hr Documented by: [id number] Ceftriaxone Sodium (Rocephin) 1,000 mg in 50 mls @ 100 mls/hr IV NOW STA Stop: 08/02/21 08:05 Last Infusion: 08/02/21 08:31 Dose: 0 mls/hr Documented by: [id number] Admin: 08/02/21 07:56 Dose: 100 mls/hr Documented by: [id number] Ioversol (Optiray 320 100ml) 94 ml IV ONCE ONE Stop: 08/02/21 09:18 Last Admin: 08/02/21 09:17 Dose: 94 ml Documented by: [id number] Imaging Data Radiologist's Impression: Abdomen/Pelvis CT 08/02/21 07:34 CT abd pelvis IV con only CLINICAL HISTORY: lower abd pain TECHNIQUE: Helical axial images of the abdomen and pelvis were obtained and displayed. Automated dose lowering techniques and/or adjustment according to patient size were utilized for this exam. This exam was performed with intravenous contrast. COMPARISON: None available at the time of this dictation. FINDINGS: Lower chest: No acute abnormality Liver: Unremarkable. No focal lesions are seen. Gallbladder and biliary tree: No calcified gallstones. Normal caliber wall. No intra- or extrahepatic biliary ductal dilation. Pancreas: Unremarkable, no focal lesions. Spleen: Unremarkable. Adrenals: Unremarkable. Kidneys and ureters: Previously noted renal cysts are stable. Bladder: Unremarkable. Reproductive organs: Unremarkable. Bowel: A hiatal hernia is seen. Lymph nodes Retroperitoneal: Unremarkable. Mesenteric: Unremarkable. Pelvic: Unremarkable. Peritoneum: Normal. Vessels: Atherosclerotic calcifications are seen. Abdominal wall: Unremarkable. Bones: Unremarkable. IMPRESSION: Diverticulosis is seen without evidence of diverticulitis. ACT 112: Negative or not required by law. Electronically signed by: Claudio Cassidy M.D. 08/02/2021 9:37 AM Chest X-Ray 08/02/21 10:16 XR chest 1V portable CLINICAL HISTORY: Weakness and difficulty breathing. Evaluate for congestive heart failure. COMPARISON STUDY: 04/12/2021 TECHNIQUE: 1 view of the chest FINDINGS: Single frontal view of the chest demonstrates the cardiomediastinal silhouette t o be within normal limits. Permanent cardiac pacer is in place. The lungs are clear of alveolar opacities. There is no evidence for pleural effusion. There is no evidence for vascular congestion. There is no acute osseous pathology. IMPRESSION: 1. No acute cardiopulmonary disease. ACT 112: Negative or not required by law. Electronically signed by: Miguelangel Lyman M.D. 08/02/2021 10:50 AM Discharge Plan Visit Data Chief Complaint: Allergic Reaction Stated Complaint: REATION TO MEDICATION - AZO ED Provider: Robert Barrios Discharge Problem: Acute hyponatremia, Weakness, Acute UTI Forms Stand Alone Forms: My [facility] Prescriptions Prescriptions: No Action albuterol sulfate [ProAir HFA] 90 mcg/actuation HFA aerosol inhaler 2 puff INH Q4H PRN (Reason: shortness of breath or wheezing) Qty: 25.5 RF: 3 albuterol sulfate 2.5 mg /3 mL (0.083 %) solution for nebulization 2.5 mg INH Q4H PRN (Reason: shortness of breath or wheezing) Qty: 75 RF: 5 flecainide 100 mg tablet 100 mg PO BID Qty: 180 RF: 3 atorvastatin 40 mg tablet 40 mg PO HS Qty: 90 RF: 3 fosfomycin tromethamine 3 gram packet 1 packet PO ONCE 1 Days Qty: 1 RF: 0 diclofenac sodium 1 % gel 4 g topical QID PRN (Reason: Pain) Qty: 100 RF: 5 nebivolol 5 mg tablet 5 mg PO QAM Qty: 90 RF: 3 clorazepate dipotassium 7.5 mg tablet 7.5 mg PO Q8H PRN (Reason: anxiety) Qty: 90 RF: 0 cholecalciferol (vitamin D3) 25 mcg (1,000 unit) capsule 25 mcg PO DAILY RF: 0 PreserVision AREDS-2 250-90-40-1 mg Capsule 1 tab PO DAILY RF: 0 Pradaxa 150 mg capsule 150 mg PO BID RF: 0 amlodipine 2.5 mg tablet 5 mg PO HS 30 Days Qty: 60 RF: 3 lisinopril 10 mg tablet 20 mg PO DAILY 30 Days Qty: 60 RF: 3 Referrals Referrals: Earl Braun MD [Primary Care Provider] -
[2021-08-02 08:12] LABS: Basophils # (auto) 0.04 K/uL (0-0.2); Basophils % (auto) 0.6 %; Eosinophils % (auto) 1.6 %; Hematocrit (blood only) 39.7 % (37-47); Hemoglobin 14.1 g/dL (12.0-16.0); Immature Granulocytes # (auto) 0.01 K/uL (0.00-0.02); Immature Granulocytes % (auto) 0.2 %; Lymphocytes # (auto) 1.87 K/uL (1.2-3.4); Mean Corpuscular Hgb Conc 35.5 g/dL (32-36); Mean Platelet Volume 9.5 fL (7.4-10.4); Monocytes # (auto) 0.61 K/uL (0.11-0.59); Monocytes % (auto) 9.8 %; Neutrophils # (auto) 3.61 K/uL (1.4-6.5); Neutrophils % (auto) 57.8 %; Platelet Count 253 K/uL (130-400); RDW Coefficient of Variation 12.9 % (11.5-14.5); RDW Standard Deviation 42.3 fL (36.4-46.3); Red Blood Count 4.41 M/uL (4.2-5.4); White Blood Count 6.24 K/uL (4.8-10.8)
[2021-08-02 08:18] LABS: Appearance Urine Clear (Clear); Bacteria Urine Automated Negative (Negative); Bilirubin Urine Negative (Negative); Blood Urine 1+ (Negative); Color Urine Dark Yellow; Glucose Urine UA Negative (Negative); Ketones Urine Negative (Negative); Leukocyte Esterase Urine Trace (Negative); Nitrite Urine Positive (Negative); Protein Urine Negative (Negative); Specific Gravity Urine 1.013 (1.000-1.030); Urobilinogen Urine Negative (Negative)
[2021-08-02 09:04] LABS: Albumin Globulin Ratio 1.8 (0.9-2); Albumin Level 4.4 gm/dl (3.4-5.0); Bilirubin,Total 0.5 mg/dl (0.2-1.0); Creatinine Clr Calc Pharmacy 44.2 ml/min; Est GFR (African American) 62.1 ml/min; Est GFR (Non-African American) 53.5 ml/min; Globulin 2.5 gm/dl (2.5-4.0); Potassium 4.5 mmol/L (3.5-5.1); Total Protein 6.9 gm/dl (6.0-8.3)
[2021-08-02] MEDS ORDERED: OPTIRAY 320 100ml IV ONE (09:17)
--- NOTE | 2021-08-02 09:38 | CT Scan Report ---
CT abd pelvis IV con only CLINICAL HISTORY: lower abd pain TECHNIQUE: Helical axial images of the abdomen and pelvis were obtained and displayed. Automated dose lowering techniques and/or adjustment according to patient size were utilized for this exam. This e xam was performed with intravenous contrast. COMPARISON: None available at the time of this dictation. FINDINGS: Lower chest: No acute abnormality Liver: Unremarkable. No focal lesions are seen. Gallbladder and biliary tree: No calcified gallstones. Normal caliber wall. No intra- or extrahepatic biliary ductal dilation. Pancreas: Unremarkable, no focal lesions. Spleen: Unremarkable. Adrenals: Unremarkable. Kidneys and ureters: Previously noted renal cysts are stable. Bladder: Unremarkable. Reproductive organs: Unremarkable. Bowel: A hiatal hernia is seen. Lymph nodes Retroperitoneal: Unremarkable. Mesenteric: Unremarkable. Pelvic: Unremarkable. Peritoneum: Normal. Vessels: Atherosclerotic calcifications are seen. Abdominal wall: Unremarkable. Bones: Unremarkable. IMPRESSION: Diverticulosis is seen without evidence of diverticulitis. ACT 112: Negative or not required by law. Electronically signed by: Claudio Cassidy M.D. 08/02/2021 9:37 AM
--- NOTE | 2021-08-02 10:39 | History & Physical Report ---
Date of Service August 02, 2021 Assessment & Plan (1) Hyponatremia: Plan: -Na+ 123, patient mildly symptomatic with weakness, abdominal pain. No nausea, vomiting, confusion. Current etiology uncertain, patient is not on any diuretics or other medications known to cause hyponatremia. Has been drinking more water than usual for her leg cramps, also states she is urinating more often. Patient does not appear hypovolemic. -Urine osm 362, urine Na+ 43. Serum osm pending. Will order TSH level. -Will start .9 NS IVF @ 60 cc/hr. -Repeat BMP and Mg in AM. (2) Recurrent UTI: Plan: -Has been treated as outpt several times in the past few months, symptoms have been increased frequency and dysuria. A UA with culture done on 07/31 grew gram negative bacteria. She was given a dose of Rocephin in ED, could consider switching to cefepime tomorrow as she has grown pseudomonas in the past. Patient has several abx allergies. -Currently without symptoms, however has been taking AZO since 07/31 which she believes her body is having a reaction to, causing abdominal pain, weakness, worsening leg cramps. She is afebrile without WBC count. (3) Acute abdominal pain: Plan: -Pain is suprapubic and in RLQ mostly, patient actually without abdominal pain at rest, only elicited if I push in suprapubic region. She states she has had abdominal pain in the past with AZO in the past, this might be contributing but is likely suprapubic pain from her UTI. -CTAP unremarkable, showed diverticulosis without diverticulitis. (4) Hypertension: Plan: -Currently with SBP in 170-180s, patient does endorse abdominal pain and is quite anxious which may be driving this. She has taken her AM BP meds which includes lisinopril and nebivolol. -Patient states BP is usually in 170s at home. -Continue BP meds as prescribed, control pain and anxiety. -Hydralazine 5 mg IV PRN for SBP > 200 (5) Paroxysmal atrial fibrillation: Plan: -Has had several episodes identified by device, heart rate controlled, patient was asymptomatic. Will continue anticoagulation with Pradaxa as well as Flecainide. -She is asymptomatic today without palpitations or chest pain. (6) Cardiac pacemaker: Plan: -Evaluated on 07/[address] Fajardo with interrogation of stored data, evaluation of battery energy and evaluation of sensing and pacing threshold measurements. Pacing and sensing characteristics are stable, battery longevity remains adequate. Episodes of atrial fibrillation were identified by the device. (7) Hyperlipidemia: Plan: -Continue statin. (8) Asthma: Plan: -Cotinue home albuterol inhalers prn. (9) Anxiety: Plan: -Continue Tranxene 7.5 mg Q8h prn. (10) DVT prophylaxis: Plan: -Patient is on Pradaxa 150 mg BID due to afibb, did received one dose of Lovenox in ED. Will hold evening dose of Pradaxa tonight, watch for any signs of bleeding, and follow CBC in AM. -SCDs ordered. Plan: -Admit inpatient medsurg on tele. -SCDs ordered, on Pradaxa for anticoagulation. -Full code. History of Present Illness Chief Complaint: abdominal pain, weakness Primary Care Provider: Earl Braun MD Patient is a 80 y/o female with PMH of paroxysmal afibb, cardiac pacemaker, HTN, HLD, anxiety, and asthma who presents today with complaints of weakness and abdominal pain for the past day. Patient was seen by her PCP two days ago, 07/31, for recurrent urinary symptoms including increased frequency and dysuria. A UA w/ culture was obtained and patient was advised to take OTC Azo for symptom relief while awaiting cultures. Patient began taking it that day for a total of 4 doses. She has since developed abdominal pain, weakness, fatigue, and increase d severity in her leg cramps. The abdominal pain seems to be located suprapubic and right lower quadrant. She states she has had these reactions from AZO several years ago, but forgot about it until she had this similar experience with it. Denies fever/chills, decreased appetite, chest pain, palpitations, SOB, cough, nausea, vomiting, diarrhea, constipation, hematuria, melena, hematochezia. Patient has been having ongoing dysuria with increased frequency for 3-4 months, she was last treated about 1 month ago for a UTI with fosfomycin which she states improved her symptoms up until now. She also reports severe leg cramps and knee pain due to restless leg syndrome and arthritis, respectively. She is unable to tolerate NSAIDs, so she states she has been drinking lots of water to alleviate the leg pain, which she says has been exacerbated since taking AZO. No other new medications added recently, no diuretics on her medication list, states she is urinating more often than usual. In ED, pt is hypertensive with SBP in 170-180s despite taking AM BP meds, all other VS within normal limits and stable. CBC unremarkable, CMP with NA 123, Cl 94, glucose 106, otherwise within normal limits. Lipase 34. UA showed 1+ blood and 5-10 RBCs, + nitrites, trace leuk est, 10-20 epi cells without bacteria or WBCs. Urine culture from 07/31 grew gram neg bacteria. Serum and urine osm and random urine Na+ pending. CTAP showed diverticulosis without diverticulitis. CXR showed no acute cardiopulmonary disease. Allergies Allergy/AdvReac Type Severity Reaction Status Date / Time sulfamethoxazole Allergy Intermediate RASH Verified 06/01/21 14:24 trimethoprim Allergy Intermediate RASH Verified 06/01/21 14:24 azithromycin Allergy Unknown CAN'T Verified 06/01/21 14:24 [From Zithromax Z-Moshe] REMEMBER doxycycline Allergy Unknown CAN'T Verified 06/01/21 14:24 REMEMBER fluoxetine Allergy Unknown CAN'T Verified 06/01/21 14:24 REMEMBER moxifloxacin Allergy Unknown unknown Verified 06/01/21 14:24 nitrofurantoin Allergy Unknown CAN'T Verified 06/01/21 14:24 [From Macrobid] REMEMBER pollen extracts Allergy Unknown HAY FEVER Verified 06/01/21 14:24 Corticosteroids AdvReac Intermediate BECOMES Verified 06/01/21 14:24 (Glucocorticoids) "EMOTIONAL" celecoxib AdvReac Unknown PT STATES Verified 06/01/21 14:24 SHE DOESN'T TOLERATE, "FELT FAINT" ciprofloxacin AdvReac Unknown abdominal Verified 06/01/21 14:24 pain escitalopram AdvReac Unknown dreams, Verified 06/01/21 14:24 abd pain montelukast AdvReac Unknown DRY MOUTH Verified 06/01/21 14:24 paroxetine AdvReac Unknown abd pain, Verified 06/01/21 14:24 dreams Home Medications Medication Instructions Recorded Confirmed Type cholecalciferol (vitamin D3) 25 25 mcg PO DAILY 03/02/20 08/02/21 History mcg (1,000 unit) capsule albuterol sulfate 2.5 mg INH Q4H PRN #75 ml 02/15/21 03/02/22 Rx albuterol sulfate 90 mcg/actuation 2 puff INH Q4H PRN #25.5 g 07/18/20 08/02/21 Rx aerosol inhaler (ProAir HFA) flecainide 100 mg tablet 100 mg PO BID #180 tab 10/27/20 08/02/21 Rx atorvastatin 40 mg tablet 40 mg PO HS #90 tab 11/09/20 08/02/21 Rx dabigatran etexilate 150 mg 150 mg PO BID 04/12/21 08/02/21 History capsule (Pradaxa) vit C 250 mg-vit E 90 mg-zinc 40 1 tab PO DAILY 04/12/21 08/02/21 History mg-copper 1 vy-hostva-fkpuyl capsule (PreserVision AREDS-2) amlodipine 2.5 mg tablet 5 mg PO HS 30 Days #60 tab 04/13/21 08/02/21 Rx lisinopril 10 mg tablet 20 mg PO DAILY 30 Days #60 tab 04/13/21 08/02/21 Rx fosfomycin tromethamine 3 gram 1 packet PO ONCE 1 Days #1 ea 06/20/21 08/02/21 Rx oral packet diclofenac sodium 1 % topical gel 4 g TOPICAL QID PRN #100 gm 06/22/21 08/02/21 Rx nebivolol 5 mg tablet 5 mg PO QAM #90 tab 06/28/21 08/02/21 Rx clorazepate dipotassium 7.5 mg 7.5 mg PO Q8H PRN #90 tab 07/27/21 08/02/21 Rx tablet Past Med/Surg History Medical History (Updated 08/02/21 @ 12:51 by Faye Gottlieb PA-C) A-fib Acute abdominal pain Acute abdominal pain Acute electrocardiogram changes Acute hyponatremia Anticoagulant long-term use Anxiety Asthma Asthma attack Atrial fibrillation with RVR Bradycardia Bradycardia Cellulitis of left knee Costochondritis Diaphoresis Dizziness Hematuria History of pacemaker Hyperlipidemia Hypertension Hypertension Hypertensive urgency Hyponatremia Junctional bradycardia Light-headed Nauseous Palpitations Pneumonia Pruritic rash Sinus node dysfunction SSS (sick sinus syndrome) Subconjunctival hemorrhage of right eye Syncope Urticaria Surgical History Post-operative state S/P knee surgery Family History Mother Congestive heart failure Heart disease Hypertension Other Atrial fibrillation Denies family history of Ovarian cancer Prostate cancer Myocardial infarction Breast cancer Lung cancer Colorectal cancer Social History Smoking Status: Never smoker Second Hand Exposure: No; Hx Alcohol Use: No Hx Substance Use: No Preferred Language: Citizen Of [place] Communication Ability: Effective Visual Impairment: Diminished Hearing Ability: Normal Supervisor Fleshing Required: No Beliefs That Will Affect Care: None marital status: / Current Living Situation: Family Current Living Situation Comment: lives with son current occupational status: retired How many Children do You have: 2 Feels Safe at Home: Yes Childhood Exposure to Second-Hand Smoke: Yes caffeine: Yes (coffee in the mornings ) Dental Care, Regularly: Yes Physical Activity Frequency: Does not Exercise Seatbelt Use: always Sunscreen Use: Yes Assistive Devices: Cane Review of Systems Review of Systems: Constitutional: repots generalized weakness, fatigue. No fever, sweats or chills Eyes: No diplopia, no worsening or blurred vision ENT: normal hearing, no trouble swallowing Respiratory: No cough, sputum, dyspnea at rest or on exertion Cardiovascular: No chest pain, tightness or palpitations Abdomen: Suprapubic and RLQ pain, without nausea, vomiting, diarrhea or constipation Musculoskeletal: Chronic knee pain and b/l leg cramps at baseline which have been worse over the past 2 days; no other joint pain, calf pain, swelling Neurologic: No focal weakness, numbness/tingling, or balance problems Psychiatric: No anxiety or depression Skin: No rash or itch Physical Exam Physical Exam: General: awake, alert, no apparent distress, seems slightly anxious Head: Normocephalic, atraumatic ENT: PERRL, EOMI, no pharyngeal exudate, mucous membranes moist Chest: Clear to auscultation, on room air, no adventitious breath sounds Cardiac: Regular rate and rhythm, no murmur, no JVD, normal peripheral pulses, good capillary refill Abdominal: suprapubic pain with deep palpation; NABS x 4 quadrants, soft, otherwise nontender to palpation, no rebound, guarding or tenderness Extremities: Normal inspection, no peripheral edema or erythema, calfs nontender to palpation Psych: Normal mood and affect Neuro: AAO x 3, strength intact bilaterally and rated 5/5, no motor deficits, speech is clear, no peripheral sensory deficits Skin: no rash or erythema Results & Data Results & Data ([facility]) Vital Signs (Past 12 Hours) Vital Signs Temp Pulse Pulse Resp BP BP Pulse Ox 08/02/21 09:42 62 08/02/21 09:40 180/84 H 92 08/02/21 08:03 90 90 18 172/89 H 92 08/02/21 07:17 36.3 C L 65 14 158/80 H 94 Laboratory Results Abnormal lab results 08/02/21 08/02/21 08/02/21 Range/Units 07:41 08:00 08:00 [place] # (Auto) 0.61 H (0.11-0.59) K/uL Sodium 123 L (136-145) mmol/L Chloride 94 L (98-107) mmol/L BUN/Creatinine Ratio 23.0 H (10-20) Glucose 106 H (70-99(Fasting)) mg/dl Urine Blood 1+ H (Negative) Urine Nitrite Positive A (Negative) Ur Leukocyte Esterase Trace H (Negative) Urine RBC (Auto) 5-10 H (0-4) /hpf U Epithel Cells (Auto) 10-20 H (0-5) /lpf Diagnostic Findings Abdomen/Pelvis CT 08/02/21 07:34 CT abd pelvis IV con only CLINICAL HISTORY: lower abd pain TECHNIQUE: Helical axial images of the abdomen and pelvis were obtained and displayed. Automated dose lowering techniques and/or adjustment according to patient size were utilized for this exam. This exam was performed with intravenous contrast. COMPARISON: None available at the time of this dictation. FINDINGS: Lower chest: No acute abnormality Liver: Unremarkable. No focal lesions are seen. Gallbladder and biliary tree: No calcified gallstones. Normal caliber wall. No intra- or extrahepatic biliary ductal dilation. Pancreas: Unremarkable, no focal lesions. Spleen: Unremarkable. Adrenals: Unremarkable. Kidneys and ureters: Previously noted renal cysts are stable. Bladder: Unremarkable. Reproductive organs: Unremarkable. Bowel: A hiatal hernia is seen. Lymph nodes Retroperitoneal: Unremarkable. Mesenteric: Unremarkable. Pelvic: Unremarkable. Peritoneum: Normal. Vessels: Atherosclerotic calcifications are seen. Abdominal wall: Unremarkable. Bones: Unremarkable. IMPRESSION: Diverticulosis is seen without evidence of diverticulitis. ACT 112: Negative or not required by law. Electronically signed by: Claudio Cassidy M.D. 08/02/2021 9:37 AM Chest X-Ray 08/02/21 10:16 XR chest 1V portable CLINICAL HISTORY: Weakness and difficulty breathing. Evaluate for congestive heart failure. COMPARISON STUDY: 04/12/2021 TECHNIQUE: 1 view of the chest FINDINGS: Single frontal view of the chest demonstrates the cardiomediastinal silhouette to be within normal limits. Permanent cardiac pacer is in place. The lungs are clear of alveolar opacities. There is no evidence for pleural effusion. There is no evidence for vascular congestion. There is no acute osseous pathology. IMPRESSION: 1. No acute cardiopulmonary disease. ACT 112: Negative or not required by law. Electronically signed by: Miguelangel Lyman M.D. 08/02/2021 10:50 AM ECG Additional Comments: Sinus rhythm with 1st degree A-V block Low voltage QRS Borderline ECG When compared with ECG of 12-APR-2021 17:29, Sinus rhythm has replaced Electronic atrial pacemaker Code Status & VTE Plan Code Status Full Code. VTE Prophylaxis Plan VTE Prophylaxis will be ordered: Yes Supervising Physician Co-Signing Physician Notes I personally saw and examined the patient. I verified all [place] points and agree with Faye Gottlieb PA-C with the following exceptions and/or additions: 80 year old female admission for generalized weakness. She also reports urinary frequency for months with no acute changes. x2 GNB in recent urine culture. No fever, chills, WBC or CVA tenderness. O/E HS1+2, RRR, no murmurs, Chest CTAB, Abdo SNT, BS normal A/P Hyponatremia - possibly contributing towards nausea and fatigue. Previously resolved with gentle IV NSS on prior admission in 2019. Suspect mildly hypovolemic on exam. Urinary frequency - patient reports no acute change in this for months. PVR 140ml. Will avoid antibiotics on admission and repeat UA and culture but low suspicion her frequency is infection related given chronicity. Consider urology follow up. PG Care Time/CCT Total # of Minutes Spent Total Time Spent with Patient: Total time spent is greater than 50% in coordination of care (as documented) at patient's floor/unit and/or counseling patient: Coding Level of Care Code 29630 Initial Inpt Care Lvl 2 Diagnoses Hyponatremia E87.1 Hyperlipidemia E78.2 Hyperlipidemia type: mixed hyperlipidemia Paroxysmal atrial fibrillation I48.0 Recurrent UTI N39.0 Acute abdominal pain R10.9 Hypertension I10 Hypertension type: essential hypertension Cardiac pacemaker Z95.0 Asthma J45.20 Asthma complication type: uncomplicated Asthma persistence: intermittent Asthma severity: mild Anxiety F41.9 DVT prophylaxis Z29.9 (1) Hyperlipidemia Hyperlipidemia type: mixed hyperlipidemia Qualified Code(s): E78.2 - Mixed hyperlipidemia (2) Hypertension Hypertension type: essential hypertension Qualified Code(s): I10 - Essential (primary) hypertension (3) Asthma Asthma complication type: uncomplicated Asthma persistence: intermittent Asthma severity: mild Qualified Code(s): J45.20 - Mild intermittent asthma, uncomplicated
--- NOTE | 2021-08-02 10:51 | XRay Report ---
XR chest 1V portable CLINICAL HISTORY: Weakness and difficulty breathing. Evaluate for congestive heart failure. COMPARISON STUDY: 04/12/2021 TECHNIQUE: 1 view of the chest FINDINGS: Single frontal view of the chest demonstrates the cardiomediastinal silhouette to be within normal li mits. Permanent cardiac pacer is in place. The lungs are clear of alveolar opacities. There is no zacarias dence for pleural effusion. There is no evidence for vascular congestion. There is no acute osseous p athology. IMPRESSION: 1. No acute cardiopulmonary disease. ACT 112: Negative or not required by law. Electronically signed by: Miguelangel Lyman M.D. 08/02/2021 10:50 AM
[2021-08-02] MEDS ORDERED: ONDANSETRON INJ 2 MG/ML 2 ML VIAL IV PRN (11:09)
[2021-08-02] MEDS ORDERED: ACETAMINOPHEN 325 MG TAB PO PRN (11:09)
[2021-08-02] MEDS ORDERED: POLYETHYLENE (MIRALAX) 17 GM PACK PO PRN (11:09)
[2021-08-02] MEDS ORDERED: ENOXAPARIN INJ 40 MG/0.4 ML SYR SQ SCH (11:15)
[2021-08-02] MEDS ORDERED: ENOXAPARIN INJ 40 MG/0.4 ML SYR ONE (11:43)
[2021-08-02] MEDS ORDERED: ALBUTEROL 0.083% NEBU SOLN 3 ML VIAL INH PRN (12:50)
[2021-08-02] MEDS ORDERED: hydrALAZINE HCL 20 MG/ML VIAL IM PRN (12:50)
[2021-08-02] MEDS ORDERED: DICLOFENAC SOD 1% GEL 100 GM TUBE EXT PRN (12:50)
[2021-08-02] MEDS ORDERED: CLORAZEPATE DIPOTASSIUM 3.75 MG TAB PO PRN (12:50)
[2021-08-02] MEDS ORDERED: ALBUTEROL HFA 8 GM INHALER INH PRN (13:31)
[2021-08-02] MEDS ORDERED: hydrALAZINE HCL 20 MG/ML VIAL IV PRN (14:30)
[2021-08-02] MEDS: SODIUM CHLORIDE 0.9% 1000ML 1,000 ML IV SCH (14:36)
[2021-08-02 16:22] LABS: BUN Creatinine Ratio 18.3 (10-20); Creatinine Clr Calc Pharmacy 42.5 ml/min; Est GFR (African American) 59.2 ml/min; Est GFR (Non-African American) 51.1 ml/min; Magnesium 2.2 mg/dl (1.7-2.4); Potassium 4.3 mmol/L (3.5-5.1)
--- NOTE | 2021-08-02 16:28 | Electrocardiogram Report ---
Test Reason : Blood Pressure : / mmHG Vent. Rate : 066 BPM Atrial Rate : 066 BPM P-R Int : 276 ms QRS Dur : 100 ms QT Int : 444 ms P-R-T Axes : 064 027 025 degrees QTc Int : 465 ms Sinus rhythm with 1st degree A-V block Low voltage QRS Borderline ECG When compared with ECG of 12-APR-2021 17:29, Sinus rhythm has replaced Electronic atrial pacemaker Confirmed by Edu Cerna ([id number]) on 08/02/2021 4:27:57 PM Referred By: REFERRED SELF Confirmed By:Edu Cerna
[2021-08-02] MEDS ORDERED: ATORVASTATIN 40 MG TAB PO SCH (21:00)
[2021-08-02] MEDS ORDERED: amLODIPine BESYLATE 5 MG TAB PO SCH (21:00)
[2021-08-02] MEDS: DABIGATRAN ETEXILATE 75 MG CAP PO SCH (22:16)
[2021-08-02] MEDS: FLECAINIDE ACETATE 100 MG TABLET PO SCH (22:17)
[2021-08-03 06:52] LABS: Basophils # (auto) 0.06 K/uL (0-0.2); Basophils % (auto) 0.9 %; Eosinophils # (auto) 0.12 K/uL (0-0.5); Eosinophils % (auto) 1.8 %; Hematocrit (blood only) 38.4 % (37-47); Hemoglobin 12.7 g/dL (12.0-16.0); Immature Granulocytes # (auto) 0.01 K/uL (0.00-0.02); Immature Granulocytes % (auto) 0.1 %; Lymphocytes # (auto) 1.89 K/uL (1.2-3.4); Lymphocytes % (auto) 27.6 %; Mean Corpuscular Hgb Conc 33.1 g/dL (32-36); Mean Corpuscular Volume 90.8 fL (80-100); Mean Platelet Volume 9.3 fL (7.4-10.4); Monocytes # (auto) 0.73 K/uL (0.11-0.59); Monocytes % (auto) 10.7 %; Neutrophils # (auto) 4.03 K/uL (1.4-6.5); Neutrophils % (auto) 58.9 %; Platelet Count 211 K/uL (130-400); RDW Coefficient of Variation 13.3 % (11.5-14.5); RDW Standard Deviation 43.8 fL (36.4-46.3); Red Blood Count 4.23 M/uL (4.2-5.4); White Blood Count 6.84 K/uL (4.8-10.8)
[2021-08-03 07:15] LABS: BUN Creatinine Ratio 17.4 (10-20); Calcium 8.3 mg/dl (8.5-10.1); Creatinine Clr Calc Pharmacy 47.5 ml/min; Est GFR (African American) 68.6 ml/min; Est GFR (Non-African American) 59.2 ml/min; Potassium 3.9 mmol/L (3.5-5.1)
[2021-08-03] MEDS: SODIUM CHLORIDE 0.9% 1000ML 1,000 ML IV SCH (07:30)
[2021-08-03] MEDS: DABIGATRAN ETEXILATE 75 MG CAP PO SCH (08:03)
[2021-08-03] MEDS: FLECAINIDE ACETATE 100 MG TABLET PO SCH (08:03)
[2021-08-03] MEDS ORDERED: CEROVITE ADV FORMULA TAB PO SCH (09:00)
[2021-08-03] MEDS ORDERED: CHOLECALCIFEROL 1,000 UNITS 25 MCG TAB PO SCH (09:00)
[2021-08-03] MEDS ORDERED: lisinopril 20 MG TAB PO SCH (09:00)
[2021-08-03] MEDS ORDERED: METOPROLOL TARTRATE 25 MG TAB PO SCH (09:00)
[2021-08-03] MEDS ORDERED: CIPROFLOXACIN / D5W 400 MG/200 ML BAG IV STA (10:02)
--- NOTE | 2021-08-03 13:56 | Discharge Summary ---
Date of Service August 03, 2021 Admission HPI Per Admitting Provider Patient is a 80 y/o female with PMH of paroxysmal afibb, cardiac pacemaker, HTN, HLD, anxiety, and asthma who presents today with complaints of weakness and abdominal pain for the past day. Patient was seen by her PCP two days ago, 07/31, for recurrent urinary symptoms including increased frequency and dysuria. A UA w/ culture was obtained and patient was advised to take OTC Azo for symptom relief while awaiting cultures. Patient began taking it that day for a total of 4 doses. She has since developed abdominal pain, weakness, fatigue, and increased severity in her leg cramps. The abdominal pain seems to be located suprapubic and right lower quadrant. She states she has had these reactions from AZO several years ago, but forgot about it until she had this similar experience with it. Denies fever/chills, decreased appetite, chest pain, palpitations, SOB, cough, nausea, vomiting, diarrhea, constipation, hematuria, melena, hematochezia. Patient has been having ongoing dysuria with increased frequency for 3-4 months, she was last treated about 1 month ago for a UTI with fosfomycin which she states improved her symptoms up until now. She also reports severe leg cramps and knee pain due to restless leg syndrome and arthritis, respectively. She is unable to tolerate NSAIDs, so she states she has been drinking lots of water to alleviate the leg pain, which she says has been exacerbated since taking AZO. No other new medications added recently, no diuretics on her medication list, states she is urinating more often than usual. In ED, pt is hypertensive with SBP in 170-180s despite taking AM BP meds, all other VS within normal limits and stable. CBC unremarkable, CMP with NA 123, Cl 94, glucose 106, otherwise within normal limits. Lipase 34. UA showed 1+ blood and 5-10 RBCs, + nitrites, trace leuk est, 10-20 epi cells without bacteria or WBCs. Urine culture from 07/31 grew gram neg bacteria. Serum and urine osm and random urine Na+ pending. CTAP showed diverticulosis without diverticulitis. CXR showed no acute cardiopulmonary disease. Principal Diagnosis 1. Hyponatremiaresolved. Suspect hypovolemic hyponatremia and poor solute intake 2. Urinary tract infectionPseudomonas 3. Generalized weaknesssecondary to #1 and 2. Improved Discharge Exam General: Resting comfortably in her hospital bed. She does not appear ill or toxic. NAD. HEENT: Head is AT/NC. Buccal mucosa is moist and pink Neck: No JVD. Negative hepatojugular reflex Cardiac: RRR with 1/6 AAYUSH Lungs: CTA without W/R/R Abdomen: Normoactive X4. Soft and nontender in all quadrants. Extremities: No peripheral clubbing cyanosis or edema Neuro: A&O X4. Cranial nerves II through XII are grossly intact. No focal eunice ro deficits Skin: No obvious skin lesions or rashes Psych: Appropriate affect. Pleasant and cooperative Discharge Data Allergies Allergy/AdvReac Type Severity Reaction Status Date / Time sulfamethoxazole Allergy Intermediate RASH Verified 06/01/21 14:24 trimethoprim Allergy Intermediate RASH Verified 06/01/21 14:24 azithromycin Allergy Unknown CAN'T Verified 06/01/21 14:24 [From Zithromax Z-Moshe] REMEMBER doxycycline Allergy Unknown CAN'T Verified 06/01/21 14:24 REMEMBER fluoxetine Allergy Unknown CAN'T Verified 06/01/21 14:24 REMEMBER moxifloxacin Allergy Unknown unknown Verified 06/01/21 14:24 nitrofurantoin Allergy Unknown CAN'T Verified 06/01/21 14:24 [From Macrobid] REMEMBER pollen extracts Allergy Unknown HAY FEVER Verified 06/01/21 14:24 Corticosteroids AdvReac Intermediate BECOMES Verified 06/01/21 14:24 (Glucocorticoids) "EMOTIONAL" celecoxib AdvReac Unknown PT STATES Verified 06/01/21 14:24 SHE DOESN'T TOLERATE, "FELT FAINT" ciprofloxacin AdvReac Unknown abdominal Verified 06/01/21 14:24 pain escitalopram AdvReac Unknown dreams, Verified 06/01/21 14:24 abd pain montelukast AdvReac Unknown DRY MOUTH Verified 06/01/21 14:24 paroxetine AdvReac Unknown abd pain, Verified 06/01/21 14:24 dreams Consultations 08/02/21 09:47 ED Decision to Admit Stat Procedures Performed Urine Culture Final 08/03/21-1054 Organism 1 Pseudomonas aeruginosa [place] Count >100,000 CFU/ml Sens Sensitivities to Follow Organism 2 Pseudomonas aeruginosa#2 [place] Count >100,000 CFU/ml Sens No Sensitivities to Follow Identification and susceptibility testing have confirmed the two organisms previously reported are the same organism. No susceptibility results will be generated on the second isolate. P [facility] --- --------- Cefepime S <=2 Ceftazidime S 4 Ciprofloxacin S <=0.25 Gentamicin S <=4 Levofloxacin S <=0.5 Meropenem S <=1 Tobramycin S <=4 Pip/Tazo S <=16 Ordered Studies 08/02/21 07:34 CXR: IMPRESSION: 1. No acute cardiopulmonary disease. CT abd pelvis IV con only Stat IMPRESSION: Diverticulosis is seen without evidence of diverticulitis.. Hospital Course (1) Weakness: 80-year-old white female with an underlying past medical history of paroxysmal atrial fibrillation on chronic anticoagulation therapy s/p PPM, HTN, HLD, and recurrent UTI presented to the emergency department complaining of generalized weakness. * In the ED, was found to have hyponatremia of 123 which was thought to be contributing greatly to her generalized weakness * In addition, prehospital urinalysis obtained and culture showing Pseudomonas. With review of old records, she was recently treated with Keflex but no antipseudomonal agents. She has been growing Pseudomonas in her urine for quite some time and has not been on antipseudomonal drugs. This is also likely contributing to her generalized weakness. See below * with normalization of her sodium and addition of antibiotic therapy, her weakness has improved. She is ambulating completely independently to and from the bathroom. She has not been seen by PT/OT; however, refuses rehab. In addition, she refuses home services. She is medically and hemodynamically stable for discharge to home at this time. (2) Hyponatremia: * Sodium of 123 upon presentation * Serum Osmo projected to be 246 with a urine osmole of 362. * Given history of lack of oral intake, suspect solute deficient/hypovolemic hyponatremia * Sodium has improved to 131 with IV hydration (NSS) * With normalization of sodium, her weakness has improved * Recommend addition of Ensure or boost 3 times daily with meals and adequate sodium intake * Recommend follow-up labs in 1 weekat discretion of PCP * With review of medications, she is not on any diuretic therapy (3) Acute UTI: * Urine culture done 07/25 showing pansensitive Pseudomonas * Patient has a reported "allergy" to Cipro but her reaction is abdominal pain. Lengthy discussion with her regarding this being an adverse event and not a true allergy and lack of treatment given it being Pseudomonas * Patient agreed to try Cipro while in house. Did tolerate it without adverse events * Discharged home with Cipro 500 mg twice daily for a total of 2 weeks given this is Pseudomonas. If patient develops adverse events, she should notify her PCP or come to the emergency department. Unfortunately, the only other options are IV medications which patient would prefer not to do if able * Given the fact that patient has had Pseudomonas growing in her urine for quite some time (with review of old records), would advise a follow-up urinalysis 48 hours after completion of antibiotic therapy. If still infected, would refer to urology. I suspect it is likely due to lack of antipseudomonal agents on board--> this is at the discretion of PCP (4) Hypertension: * BP slightly accelerated while in house (160/95) but reports that she is very anxious and wants to go home * BP upon arrival was normal at 129/61. Likely has a component of whitecoat syndrome * Should continue her prehospital antihypertensive agents including Bystolic, lisinopril and amlodipine. Follow-up with PCP in regards (5) Paroxysmal atrial fibrillation: * History of tachybradycardia syndrome s/p PPM * No rate controlling medications on board (other than Bystolic but this is not cardiac specific). * Rate currently controlled in the 70s * Continue Pradaxa as prior to hospitalization (6) Hyperlipidemia: -Continue statin. (7) Asthma: -Cotinue home albuterol inhalers prn. (8) Anxiety: -Continue Tranxene 7.5 mg Q8h prn. Discharge to home. Patient declines home services at this time Total Time Total Time Spent Total Time Spent (In Minutes): 40 minutes including time spent with patient, reassessment of patient after trialing Cipro, discussion with case management, discussion with nursing staff, preparation of documentation, discussion with attending provider. Discharge Plan Discharge Items Patient Disposition: Home - Self-Care Reason For Visit: HYPONATREMIA Discharge Diagnosis: 1. Hyponatremiaresolved. Suspect hypovolemic hyponatremia/poor solute 2. UTIPseudomonas 3. Generalized weaknessresolved with improved sodium level Activity: Resume your previous activity Non-emergency contact: Primary Care Provider Call non-emergency contact if: you have any medication questions and your symptoms worsen Follow-up/Referrals: Earl Braun MD [Primary Care Provider] - 08/10/21 11:00 am Diet: Heart Healthy Diet Comment: recommend Boost or Ensure 3x/day with meals Addtl Attending Provider Instructions: You presented to the emergency department with generalized weakness and were found to have a low sodium level and a urinary tract infection. Your sodium level has improved with IV hydration. I suspect poor oral intake is likely the biggest contributing factor to your low sodium level. Would advise boost or Ensure supplements 3 times daily in addition to meals to increase solute intake and follow-up labs in 1 week to trend your sodium level. This is at the discretion of your PCP. In regards to the urinary tract infection, you are growing a very resistant bacteria but fortunately oral Cipro can be utilized. You have a reported allergy to this which is "abdominal pain". You were placed on Cipro while in the hospital and you tolerated this without ill effects. You are being discharged with Cipro twice daily for total of 2 weeks as this is a complicated urinary tract infection with a very resistant form of bacteria that requires a longer course of antibiotics. Next dose of this medication is due tonight. If you develop ill effects, notify your PCP. Given recurrent Pseudomonas found in the urine, would advise follow-up urinalysis 48 hours after completion of antibiotic therapy and if infection still present, would refer to urology. This is at the discretion of your PCP. With improvement in your sodium level and successful treatment of your urinary tract infection, your generalized weakness has improved. You have declined visiting nurses/home PT/home OT. You are being discharged to home today. Please follow-up with your PCP within 7 to 10 days. Return to the emergency department for any new or worsening symptoms. Pending Studies at Discharge: No Stand-Alone Forms: My [facility] Medications and DC Order Prescriptions: New ciprofloxacin HCl 500 mg tablet 500 mg PO BID Qty: 27 RF: 0 Continued albuterol sulfate [ProAir HFA] 90 mcg/actuation HFA aerosol inhaler 2 puff INH Q4H PRN (Reason: shortness of breath or wheezing) Qty: 25.5 RF: 3 albuterol sulfate 2.5 mg /3 mL (0.083 %) solution for nebulization 2.5 mg INH Q4H PRN (Reason: shortness of breath or wheezing) Qty: 75 RF: 5 flecainide 100 mg tablet 100 mg PO BID Qty: 180 RF: 3 atorvastatin 40 mg tablet 40 mg PO HS Qty: 90 RF: 3 diclofenac sodium 1 % gel 4 g topical QID PRN (Reason: Pain) Qty: 100 RF: 5 nebivolol 5 mg tablet 5 mg PO QAM Qty: 90 RF: 3 clorazepate dipotassium 7.5 mg tablet 7.5 mg PO Q8H PRN (Reason: anxiety) Qty: 90 RF: 0 cholecalciferol (vitamin D3) 25 mcg (1,000 unit) capsule 25 mcg PO DAILY RF: 0 PreserVision AREDS-2 250-90-40-1 mg Capsule 1 tab PO DAILY RF: 0 Pradaxa 150 mg capsule 150 mg PO BID RF: 0 amlodipine 2.5 mg tablet 5 mg PO HS 30 Days Qty: 60 RF: 3 lisinopril 10 mg tablet 20 mg PO DAILY 30 Days Qty: 60 RF: 3 Discontinued fosfomycin tromethamine 3 gram packet 1 packet PO ONCE 1 Days Qty: 1 RF: 0 Discharge Orders: Discharge Order (Routine); Ordered 08/03/21 Ordered By: Melody Aceves Admission Data Admit Date/Time: 08/02/21 11:09 Attending Provider: Stanley Ashraf Admit Provider: Stanley Navarrete Primary Care Provider: Earl Braun Other Interventions: Discharge Summary Assessment (RN) Last Done: 08/03/21 15:41 Supervising Physician Co-Signing Physician Notes Attending Attestation & Discharge Note: Pt seen/examined, chart reviewed, care plan d/w KATRIN Aceves. I agree w/ the quezada components of her discharge documentation. Pleasant 80yo female with h/o PAF, pacemaker, HTN, recurrent UTI - presenting with weakness likely due to hyponatremia (acute/chronic) as well as pseudomonas UTI which grew on outpatient urine cx from 07/31/21. Na level improved from 123 to 131 (just shy of baseline) with IV fluids. Pt initiated on cipro for the pseudomonas and tolerated such. Of note - this is her 3rd UTI due to pseudomonas since late May 2021. The patient felt better once her sodium levels were improved. Suspect the acute worsening of her chronic hyponatremia was from volume depletion in the setting of her UTI. She will complete a course of oral cipro after discharge. I agree with the recommendation to repeat a u/a towards the end of her cipro course to ensure test of cure. If pseudomonas does not clear advise urology consultation to determine the cause of these recurrent infections. Discharge exam - gen - NAD mouth - MMM heart - RRR, s1 s2 lungs - CTA b/l abd - soft, NT, ND, BS+, no HSM; no flank tenderness to palpation ext - no edema, pulses 2+ b/l psych - a/o x 3 Stanley Ashraf MD Coding Level of Care Code D/C DAY MANAGEMENT >30 MINS Diagnoses Hyponatremia E87.1 Hypertension I10 Hypertension type: essential hypertension Paroxysmal atrial fibrillation I48.0 Hyperlipidemia E78.2 Hyperlipidemia type: mixed hyperlipidemia Asthma J45.20 Asthma complication type: uncomplicated Asthma persistence: intermittent Asthma severity: mild Anxiety F41.9 Acute UTI N39.0 Weakness R53.1
== END 2021-08-03 16:19 | disposition home or self-care (01) | DRG 690 ==
LOC: ED 07:13 → EDINP 11:09 → SUATTDRO 11:09 → EDINP 13:45 → 2W 14:03

== ENCOUNTER 2024-04-26 10:47 | Observation (INO) ==
--- NOTE | 2024-04-26 11:12 | Emergency Department Note ---
Impression & Plan Bilateral leg edema, Abnormal ECG ED Provider Note NAME: MONTANA BLACKWOOD AGE: 83 SEX: F : 1940 ARRIVES VIA: Walk-In INFORMANT: Patient ED PROVIDER(S): Robert Barrios DO CHIEF COMPLAINT: Left leg swelling HPI: Patient is an 83-year-old female who presents to the ER for swelling of the left lower extremity. She notes this initially started about 7 days ago. She notes that it is slightly painful. Denies any headache or change in vision. No chest pain or shortness of breath. No dysuria, urgency, or frequency. No other exacerbating or remitting factors. Patient notes that she does have swelling on the bilateral lower extremities. This is all new over the past week. ADDITIONAL HISTORY OBTAINED: Per HPI Chronic Medical/Social Conditions Affecting Care: Per HPI PAST MEDICAL HISTORY:See Below PAST SURGICAL HISTORY:See Below FAMILY HISTORY:See Below SOCIAL HISTORY:See Below HOME MEDICATIONS:See Below ALLERGIES:See Below VITALS:See Below PHYSICAL EXAMINATION: GENERAL: Sitting up in bed, alert, well appearing, well nourished, no distress, non-toxic EYE EXAM: normal conjunctiva. PERRL and EOM's grossly intact. OROPHARYNX: mucous membranes are moist NECK: supple, no nuchal rigidity, no adenopathy, non-tender LUNGS: Clear to auscultation. Normal chest wall mechanics HEART: no murmurs, S1 normal and S2 normal ABDOMEN: abdomen soft, non-tender, normo-active bowel sounds, no masses, no rebound or guarding. UPPER EXTREMITIES: upper extremities are grossly normal. LOWER EXTREMITIES: Pitting edema in the bilateral lower extremities. Flexion- extension left hip knee and ankle is intact. DPs 2 out of 4 bilaterally. Small mount erythema over the dorsal aspect of the left foot and left brown which has dissipated slightly NEURO EXAM: Normal sensorium, cranial nerves II-XII grossly intact, normal speech, no gross weakness of arms, no gross weakness of legs. MEDICAL DECISION MAKING: Patient is an 83-year-old female who presents to the ER for the below stated complaint for swelling in her bilateral lower extremities. IV was established and blood work was obtained. She has a past medical history of long-term anticoagulation and CKD. Labs show no significant leukocytosis or anemia. BMP along with LFTs bilirubin was unremarkable. Troponin was negative. proBNP elevated at nearly 700. Chest x-ray was clean. EKG showed ST wave depressions and T wave inversions which are new in comparison to old. With this I discussed the case with the hospitalist as I do feel she would benefit from an echo. No signs of cellulitis at this time although there is faint erythema initially which has dissipated on the left lower extremity Consults/Care Managements Discussions: Per [facility] Triage Nursing notes reviewed. Limited review of prior medical records performed Vital Signs: reviewed and remarkable for no significant abnormalities Differential diagnosis: Differential diagnoses includes but is not limited to pneumonia, bronchitis, COPD/Asthma exacerbation, pneumothorax, pulmonary embolism, congestive heart failure, acute coronary syndrome ER treatment provided: See below Diagnostics interpreted by me include EKG and cardiac monitoring as listed below: -Cardiac Monitoring: An order was placed for continuous cardiac monitoring. The monitor shows a rate of 80 with A-fib rhythm. -ECG: A-fib rate [address] depressions in the 2 through V5 T wave inversion in the inferior leads QTc 483 T wave inversions are new in comparison to old -Laboratory studies:Interpreted by me as stated above in MDM and shown below. Imaging studies: Xrays: As interpreted by me: Portable AP upright 1 view of the chest shows no focal infiltrate CTs show: none Procedures:none Critical Care: None Past Med/Surg History Problem List (Updated 04/26/24 @ 16:06 by Robert Barrios DO) Abnormal ECG (Acute) Bilateral leg edema (Acute) Recurrent falls CKD (chronic kidney disease), stage III Adhesive capsulitis Anxiety Multiple drug allergies Recurrent UTI Hyponatremia (Acute) Impaired fasting glucose Mitral regurgitation Paroxysmal atrial fibrillation Cardiac pacemaker Sinus node dysfunction (Chronic) Hyperlipidemia (Chronic) Anticoagulant long-term use (Chronic) Hypertension (Chronic) Asthma (Chronic) Medical History Osteopenia of femoral neck Closed fracture of right proximal humerus (~09/04/22) Rotator cuff arthropathy of right shoulder Diaphoresis Nauseous Dizziness Light-headed Hypertensive urgency History of pacemaker Junctional bradycardia Acute hyponatremia Bradycardia Syncope Bradycardia Hypertension SSS (sick sinus syndrome) Acute electrocardiogram changes Atrial fibrillation with RVR Pneumonia Costochondritis Cellulitis of left knee Asthma attack Subconjunctival hemorrhage of right eye Pruritic rash Urticaria Hematuria Acute abdominal pain A-fib Surgical History S/P knee surgery Post-operative state Family History Mother Congestive heart failure Heart disease Hypertension Other Atrial fibrillation Denies family history of Ovarian cancer Prostate cancer Myocardial infarction Breast cancer Lung cancer Colorectal cancer Social History Smoking Status: Never smoker Tobacco Type: Cigarettes Second Hand Exposure: No; Do You Dip or Chew Tobacco: No; Hx Alcohol Use: No Hx Substance Use: No Preferred Language: Greek Communication Ability: Effective Visual Impairment: No Limitations Hearing Ability: Normal Digital Data Analyst Required: No Beliefs That Will Affect Care: None marital status: / Current Living Situation: Family Current Living Situation Comment: lives with son current occupational status: retired How many Children do You have: 2 Feels Safe at Home: Yes Childhood Exposure to Second-Hand Smoke: Yes caffeine: Yes (coffee in the mornings ) Dental Care, Regularly: Yes Physical Activity Frequency: Does not Exercise Seatbelt Use: always Sunscreen Use: Yes Assistive Devices: None Allergies Allergies Allergy/AdvReac Type Severity Reaction Status Date / Time sulfamethoxazole Allergy Intermediate RASH Verified 02/05/24 11:08 trimethoprim Allergy Intermediate RASH Verified 02/05/24 11:08 azithromycin Allergy Unknown CAN'T Verified 02/05/24 11:08 [From Zithromax Z-Moshe] REMEMBER doxycycline Allergy Unknown CAN'T Verified 02/05/24 11:08 REMEMBER fluoxetine Allergy Unknown CAN'T Verified 02/05/24 11:08 REMEMBER moxifloxacin Allergy Unknown unknown Verified 02/05/24 11:08 nitrofurantoin Allergy Unknown CAN'T Verified 02/05/24 11:08 [From Macrobid] REMEMBER pollen extracts Allergy Unknown HAY FEVER Verified 02/05/24 11:08 Corticosteroids AdvReac Intermediate BECOMES Verified 02/05/24 11:08 (Glucocorticoids) "EMOTIONAL" celecoxib AdvReac Unknown PT STATES Verified 02/05/24 11:08 SHE DOESN'T TOLERATE, "FELT FAINT" ciprofloxacin AdvReac Unknown abdominal Verified 02/05/24 11:08 pain escitalopram AdvReac Unknown dreams, Verified 02/05/24 11:08 abd pain montelukast AdvReac Unknown DRY MOUTH Verified 02/05/24 11:08 paroxetine AdvReac Unknown abd pain, Verified 02/05/24 11:08 dreams Home Meds Home Medications Medication Instructions Recorded Confirmed albuterol sulfate 2.5 mg/3 mL 2.5 mg inhalation UD PRN sob 04/26/24 04/26/24 (0.083 %) solution for nebulization albuterol sulfate 90 mcg/actuation 2 puff inhalation Q4H PRN 04/26/24 04/26/24 aerosol inhaler sob/wheezing alendronate 70 mg tablet 70 mg PO UD 04/26/24 04/26/24 diclofenac sodium 1 % topical gel 4 g topical UD PRN Pain 04/26/24 04/26/24 Previous Rx's Medication Instructions Recorded lisinopril 20 mg tablet 20 mg PO DAILY #90 tabs 09/30/23 amlodipine 5 mg tablet 5 mg PO DAILY #90 tabs 10/01/23 apixaban 5 mg tablet (Eliquis) 5 mg PO BID #60 tabs 10/01/23 nebivolol 5 mg tablet 5 mg PO QAM #90 tabs 10/08/23 flecainide 100 mg tablet 100 mg PO BID ARRHYTHMIAS #180 tabs 10/23/23 atorvastatin 40 mg tablet 40 mg PO HS #90 tabs 11/01/23 alprazolam 0.5 mg tablet 0.5 mg PO BID PRN anxiety #60 tabs 04/24/24 Results & Data (ED) Vital Signs Vital Signs - 24 hr 04/26/24 10:55 04/26/24 11:11 04/26/24 11:14 Temperature 36.1 C L Temperature Source Temporal Artery Scan Pulse Rate 94 H 89 Pulse Rate [Apical] 85 Respiratory Rate 18 15 23 Respiratory Effort / Characteristics Non-Labored Spontaneous Respiratory Depth Normal Blood Pressure 153/103 H Blood Pressure [Right Arm] 164/103 H Blood Pressure Mean 119 Blood Pressure Mean [Right Arm] 123 Blood Pressure Position [Right Arm] Semi-fowlers Pulse Oximetry 96 95 95 Oxygen Delivery Method Room Air Room Air Room Air Sepsis Recent Fever Within 48 Hours No Sepsis New/Unexplained Change in Mental Status N/A Sepsis Action Taken by Nursing No Action Required 04/26/24 13:00 04/26/24 13:01 04/26/24 15:32 Temperature Temperature Source Pulse Rate 75 Pulse Rate [Apical] 73 85 Respiratory Rate 25 H 20 Respiratory Effort / Characteristics Non-Labored Spontaneous Respiratory Depth Normal Blood Pressure Blood Pressure [Right Arm] 147/100 H 156/114 H Blood Pressure Mean Blood Pressure Mean [Right Arm] 115 128 Blood Pressure Position [Right Arm] Semi-fowlers Pulse Oximetry 95 99 Oxygen Delivery Method Room Air Sepsis Recent Fever Within 48 Hours Sepsis New/Unexplained Change in Mental Status Sepsis Action Taken by Nursing Laboratory Data 04/26/24 11:18 04/26/24 11:18 Lab Results 04/26/24 Range/Units 11:18 WBC 8.19 (4.8-10.8) K/ul RBC 4.65 (4.20-5.40) M/uL Hgb 13.4 (12.0-16.0) g/dl Hct 42.0 (37.0-47.0) % MCV 90.3 (80.0-100.0) fL MCH 28.8 (25.0-34.0) pg MCHC 31.9 L (32.0-36.0) g/dL RDW Std Deviation 49.8 H (36.4-46.3) fL RDW Coeff of Mery 15.1 H (11.5-14.5) % Plt Count 291 (130-400) K/uL MPV 9.3 L (9.4-12.4) fL Immature Gran % (Auto) 0.1 % Neut % (Auto) 60.9 % Lymph % (Auto) 26.0 % Hubbard % (Auto) 9.6 % Eos % (Auto) 2.2 % Baso % (Auto) 1.2 % Neut # (Auto) 4.98 (1.40-6.50) K/uL Lymph # (Auto) 2.13 (1.20-3.40) K/uL Hubbard # (Auto) 0.79 H (0.11-0.59) K/uL Eos # (Auto) 0.18 (0.00-0.50) K/uL Baso # (Auto) 0.10 (0.00-0.20) K/uL Immature Gran # (Auto) 0.01 (0.01-0.20) K/uL Sodium 139 (136-145) mmol/L Potassium 4.6 (3.5-5.1) mmol/L Chloride 104 (98-107) mmol/L Carbon Dioxide 27 (21-32) mmol/L Anion Gap 8 (3-11) BUN 22 (6-23) mg/dl Creatinine 1.13 (0.6-1.2) mg/dl Est Cr Clr Drug Dosing 35.9 ml/min eGFR 48.57 BUN/Creatinine Ratio 19.5 (10-20) Glucose 97 (70-99(Fasting)) mg/dl Calcium 10.0 (8.6-10.3) mg/dl Total Bilirubin 0.7 (0.2-1.0) mg/dl AST 14 (13-39) U/L ALT 15 (7-52) U/L Alkaline Phosphatase 61 (34-104) U/L Troponin I High Sens 9.5 (0-14) pg/ml B-Natriuretic Peptide 657 H (0-100) pg/ml Total Protein 7.8 (6.0-8.3) gm/dl Albumin 4.4 (3.4-5.0) gm/dl Globulin 3.4 (2.5-4.0) gm/dl Albumin/Globulin Ratio 1.3 (0.9-2) Lipase 36 (11-82) U/L Administered Medications Discontinued Medications Ceftriaxone Sodium (Rocephin) 1,000 mg in 50 mls @ 100 mls/hr IV NOW STA Stop: 04/26/24 15:33 Last Infusion: 04/26/24 15:55 Dose: Infused Documented By: Admin: 04/26/24 15:16 Dose: 100 mls/hr Documented By: MARIANA Imaging Data Radiologist's Impression: Chest X-Ray 04/26/24 11:10 XR chest 1V portable CLINICAL HISTORY: Chest pain, nonspecific COMPARISON STUDY: Chest radiograph August 02, 2021. FINDINGS: Dual lead left subclavian pacemaker is unchanged in position. Lung volumes are normal. Lungs are clear. There is no pneumothorax or pleural effusion. Mild cardiomegaly is unchanged. Mediastinal contours are normal. There is no evidence for pulmonary edema. IMPRESSION: No acute cardiopulmonary findings. ACT 112: Negative or not required by law. Electronically signed by: Prosper Mathews M.D. 04/26/2024 12:03 PM Venous Doppler Study 04/26/24 11:10 LEFT LOWER EXTREMITY VENOUS DOPPLER CLINICAL HISTORY: Left leg pain and swelling. COMPARISON STUDY: Bilateral lower extremity venous Doppler ultrasound July 25, 2020. TECHNIQUE: Sonography of the deep venous system of the left lower extremity was performed. Compression and augmentation were evaluated. FINDINGS: The left common femoral, superficial femoral and popliteal veins were compressible. Augmentation was normal. Flow was shown within the deep calf vessels. IMPRESSION: No evidence of deep venous thrombus within the left lower extremity. ACT 112: Negative or not required by law. Electronically signed by: Prosper Mathews M.D. 04/26/2024 12:47 PM Discharge Plan Visit Data Chief Complaint: Ankle Pain Stated Complaint: ANKLE EDEMA/BOTH SIDES ED Provider: Robert Barrios Discharge Problem: Bilateral leg edema, Abnormal ECG Forms Stand Alone Forms: [facility] Connotate Prescriptions Prescriptions: No Action lisinopril 20 mg tablet 20 mg PO DAILY Qty: 90 3RF amlodipine 5 mg tablet 5 mg PO DAILY Qty: 90 3RF Eliquis 5 mg tablet 5 mg PO BID Qty: 60 11RF nebivolol 5 mg tablet 5 mg PO QAM Qty: 90 3RF Rx Instructions: Take in the Morning. flecainide 100 mg tablet 100 mg PO BID Qty: 180 3RF atorvastatin 40 mg tablet 40 mg PO HS Qty: 90 3RF alprazolam 0.5 mg tablet 0.5 mg PO BID PRN (Reason: anxiety) Qty: 60 0RF albuterol sulfate 2.5 mg /3 mL (0.083 %) solution for nebulization 2.5 mg inhalation UD PRN (Reason: sob) Rx Instructions: 2.5 mg q4h prn. Not on file with pharmacy albuterol sulfate 90 mcg/actuation HFA aerosol inhaler 2 puff inhalation Q4H PRN (Reason: sob/wheezing) Rx Instructions: inhale 2 puffs by mouth and INTO THE LUNGS every 4 hours if needed for cough shortness of breath or wheezing alendronate 70 mg tablet 70 mg PO UD Rx Instructions: 70 mg po wk. Not on file with pharmacy diclofenac sodium 1 % gel 4 g topical UD PRN (Reason: Pain) Rx Instructions: 4 g QID prn. OTC/not on file with pharmacy Apply 4MG of gel to affected area of lower extremities 4x daily. Referrals Referrals: Starr Novoa DO [Primary Care Provider] -
[2024-04-26 11:36] LABS: Basophils % (auto) 1.2 %; Eosinophils # (auto) 0.18 K/uL (0.00-0.50); Eosinophils % (auto) 2.2 %; Hemoglobin 13.4 g/dl (12.0-16.0); Immature Granulocytes # (auto) 0.01 K/uL (0.01-0.20); Immature Granulocytes % (auto) 0.1 %; Lymphocytes # (auto) 2.13 K/uL (1.20-3.40); Mean Corpuscular Hemoglobin 28.8 pg (25.0-34.0); Mean Corpuscular Hgb Conc 31.9 g/dL (32.0-36.0); Mean Corpuscular Volume 90.3 fL (80.0-100.0); Mean Platelet Volume 9.3 fL (9.4-12.4); Monocytes # (auto) 0.79 K/uL (0.11-0.59); Monocytes % (auto) 9.6 %; Neutrophils # (auto) 4.98 K/uL (1.40-6.50); Neutrophils % (auto) 60.9 %; Platelet Count 291 K/uL (130-400); RDW Coefficient of Variation 15.1 % (11.5-14.5); RDW Standard Deviation 49.8 fL (36.4-46.3); Red Blood Count 4.65 M/uL (4.20-5.40); White Blood Count 8.19 K/ul (4.8-10.8)
[2024-04-26 11:59] LABS: Albumin Level 4.4 gm/dl (3.4-5.0); Bilirubin,Total 0.7 mg/dl (0.2-1.0); Potassium 4.6 mmol/L (3.5-5.1)
[2024-04-26 12:01] LABS: Creatinine Clr Calc Pharmacy 35.9 ml/min
[2024-04-26 12:05] LABS: Albumin Globulin Ratio 1.3 (0.9-2); BUN Creatinine Ratio 19.5 (10-20); Globulin 3.4 gm/dl (2.5-4.0); Total Protein 7.8 gm/dl (6.0-8.3)
--- NOTE | 2024-04-26 12:05 | XRay Report ---
XR chest 1V portable CLINICAL HISTORY: Chest pain, nonspecific COMPARISON STUDY: Chest radiograph August 02, 2021. FINDINGS: Dual lead left subclavian pacemaker is unchanged in position. Lung volumes are normal. Lung s are clear. There is no pneumothorax or pleural effusion. Mild cardiomegaly is unchanged. Mediastina l contours are normal. There is no evidence for pulmonary edema. IMPRESSION: No acute cardiopulmonary findings. ACT 112: Negative or not required by law. Electronically signed by: Prosper Mathews M.D. 04/26/2024 12:03 PM
--- NOTE | 2024-04-26 12:50 | Ultrasound Report ---
LEFT LOWER EXTREMITY VENOUS DOPPLER CLINICAL HISTORY: Left leg pain and swelling. COMPARISON STUDY: Bilateral lower extremity venous Doppler ultrasound July 25, 2020. TECHNIQUE: Sonography of the deep venous system of the left lower extremity was performed. Compressi on and augmentation were evaluated. FINDINGS: The left common femoral, superficial femoral and popliteal veins were compressible. Augmen tation was normal. Flow was shown within the deep calf vessels. IMPRESSION: No evidence of deep venous thrombus within the left lower extremity. ACT 112: Negative or not required by law. Electronically signed by: Prosper Mathews M.D. 04/26/2024 12:47 PM
[2024-04-26 14:07] LABS: Troponin I High Sensitivity 9.5 pg/ml (0-14)
--- NOTE | 2024-04-26 15:11 | Electrocardiogram Report ---
Test Reason : Blood Pressure : */* mmHG Vent. Rate : 86 BPM Atrial Rate : * BPM P-R Int : * ms QRS Dur : 126 ms QT Int : 404 ms P-R-T Axes : * 118 -49 degrees QTcB Int : 483 ms Atrial fibrillation Non-specific intra-ventricular conduction block Lateral infarct , age undetermined T wave abnormality, consider inferior ischemia T wave abnormality, consider anterior ischemia Abnormal ECG Confirmed by Bk Kirkpatrick ([id number]) on 04/26/2024 3:11:06 PM Referred By: REFERRED SELF Confirmed By: Bk Kirkpatrick
[2024-04-26] MEDS ORDERED: ENOXAPARIN INJ 40 MG/0.4 ML SYR SQ SCH (15:15)
[2024-04-26] MEDS: cefTRIAXone SODIUM 1,000 MG/50 ML BAG IV STA (15:16)
--- NOTE | 2024-04-26 16:08 | History & Physical Report ---
Date of Service April 26, 2024 Assessment & Plan (1) Cellulitis: Plan: IV Rocephin if improves overnight, can likely d/c in AM (2) Hypertension: Plan: continue home med regimen, avoid tight BP control / fall risk (3) Paroxysmal atrial fibrillation: Plan: Continue AVNB / Apixaban s/p PPM Plan House diet OOB as tolerated PT eval / OT eval DVT Px - on Apixaban History of Present Illness Chief Complaint: Left leg and foot swelling / erythema today Primary Care Provider: Starr Novoa DO Patient is a 83 y/o lady presented to ED for evaluation of erythema and swelling of left leg and foot that she noticed today. She never had similar symptoms in the past. She denies associated fever, chills, malaise, pain, chest pain or shortness of breath. She ambulates independently and denies any falls in the recent past. She has h/o recurrent falls. Allergies Allergy/AdvReac Type Severity Reaction Status Date / Time sulfamethoxazole Allergy Intermediate RASH Verified 02/05/24 11:08 trimethoprim Allergy Intermediate RASH Verified 02/05/24 11:08 azithromycin Allergy Unknown CAN'T Verified 02/05/24 11:08 [From Zithromax Z-Moshe] REMEMBER doxycycline Allergy Unknown CAN'T Verified 02/05/24 11:08 REMEMBER fluoxetine Allergy Unknown CAN'T Verified 02/05/24 11:08 REMEMBER moxifloxacin Allergy Unknown unknown Verified 02/05/24 11:08 nitrofurantoin Allergy Unknown CAN'T Verified 02/05/24 11:08 [From Macrobid] REMEMBER pollen extracts Allergy Unknown HAY FEVER Verified 02/05/24 11:08 Corticosteroids AdvReac Intermediate BECOMES Verified 02/05/24 11:08 (Glucocorticoids) "EMOTIONAL" celecoxib AdvReac Unknown PT STATES Verified 02/05/24 11:08 SHE DOESN'T TOLERATE, "FELT FAINT" ciprofloxacin AdvReac Unknown abdominal Verified 02/05/24 11:08 pain escitalopram AdvReac Unknown dreams, Verified 02/05/24 11:08 abd pain montelukast AdvReac Unknown DRY MOUTH Verified 02/05/24 11:08 paroxetine AdvReac Unknown abd pain, Verified 02/05/24 11:08 dreams Home Medications Medication Instructions Recorded Confirmed Type lisinopril 20 mg tablet 20 mg PO DAILY #90 tabs 09/30/23 04/26/24 Rx amlodipine 5 mg tablet 5 mg PO DAILY #90 tabs 10/01/23 04/26/24 Rx apixaban 5 mg tablet (Eliquis) 5 mg PO BID #60 tabs 10/01/23 04/26/24 Rx nebivolol 5 mg tablet 5 mg PO QAM #90 tabs 10/08/23 04/26/24 Rx flecainide 100 mg tablet 100 mg PO BID ARRHYTHMIAS #180 tabs 10/23/23 04/26/24 Rx atorvastatin 40 mg tablet 40 mg PO HS #90 tabs 11/01/23 04/26/24 Rx alprazolam 0.5 mg tablet 0.5 mg PO BID PRN anxiety #60 tabs 04/24/24 04/26/24 Rx albuterol sulfate 2.5 mg/3 mL 2.5 mg inhalation UD PRN sob 04/26/24 04/26/24 History (0.083 %) solution for nebulization albuterol sulfate 90 mcg/actuation 2 puff inhalation Q4H PRN 04/26/24 04/26/24 History aerosol inhaler sob/wheezing alendronate 70 mg tablet 70 mg PO UD 04/26/24 04/26/24 History diclofenac sodium 1 % topical gel 4 g topical UD PRN Pain 04/26/24 04/26/24 History Past Med/Surg History Problem List (Updated 04/26/24 @ 16:07 by Louisa Tirado MD) Cellulitis Abnormal ECG (Acute) Bilateral leg edema (Acute) Recurrent falls CKD (chronic kidney disease), stage III Adhesive capsulitis Anxiety Multiple drug allergies Recurrent UTI Hyponatremia (Acute) Impaired fasting glucose Mitral regurgitation Paroxysmal atrial fibrillation Cardiac pacemaker Sinus node dysfunction (Chronic) Hyperlipidemia (Chronic) Anticoagulant long-term use (Chronic) Hypertension (Chronic) Asthma (Chronic) Medical History Osteopenia of femoral neck Closed fracture of right proximal humerus (~09/04/22) Rotator cuff arthropathy of right shoulder Diaphoresis Nauseous Dizziness Light-headed Hypertensive urgency History of pacemaker Junctional bradycardia Acute hyponatremia Bradycardia Syncope Bradycardia Hypertension SSS (sick sinus syndrome) Acute electrocardiogram changes Atrial fibrillation with RVR Pneumonia Costochondritis Cellulitis of left knee Asthma attack Subconjunctival hemorrhage of right eye Pruritic rash Urticaria Hematuria Acute abdominal pain A-fib Surgical History S/P knee surgery Post-operative state Family History Mother Congestive heart failure Heart disease Hypertension Other Atrial fibrillation Denies family history of Ovarian cancer Prostate cancer Myocardial infarction Breast cancer Lung cancer Colorectal cancer Social History Smoking Status: Never smoker Tobacco Type: Cigarettes Second Hand Exposure: No; Do You Dip or Chew Tobacco: No; Hx Alcohol Use: No Hx Substance Use: No Preferred Language: Syriac Communication Ability: Effective Visual Impairment: No Limitations Hearing Ability: Normal Rn House Supervisor Required: No Beliefs That Will Affect Care: None marital status: / Current Living Situation: Family Current Living Situation Comment: lives with son current occupational status: retired How many Children do You have: 2 Feels Safe at Home: Yes Childhood Exposure to Second-Hand Smoke: Yes caffeine: Yes (coffee in the mornings ) Dental Care, Regularly: Yes Physical Activity Frequency: Does not Exercise Seatbelt Use: always Sunscreen Use: Yes Assistive Devices: None Review of Systems Review of Systems: 10 systems reviewed and negative except as listed in the HPI Physical Exam Physical Exam: resting comfortably, non toxic lungs clear to auscultation b/l Heart RRR PA Soft, NT, ND, BS+ Skin erythema of lower third of the leg extending to the dorsum of the left foot AAO##, Non focal Results & Data Results & Data Vital Signs (Past 12 Hours) Vital Signs Temp Pulse Pulse Resp BP BP Pulse Ox 04/26/24 15:32 85 20 156/114 H 99 04/26/24 13:01 75 04/26/24 13:00 73 25 H 147/100 H 95 04/26/24 11:14 89 23 95 04/26/24 11:11 85 15 164/103 H 95 04/26/24 10:55 36.1 C L 94 H 18 153/103 H 96 O2 Del Method 04/26/24 15:32 04/26/24 13:01 04/26/24 13:00 Room Air 04/26/24 11:14 Room Air 04/26/24 11:11 Room Air 04/26/24 10:55 Room Air Laboratory Results reviewed Diagnostic Findings reviewed Code Status & VTE Plan Code Status Full code VTE Prophylaxis Plan VTE Prophylaxis will be ordered: Yes PG Care Time/CCT Total # of Minutes Spent Total Time Spent with Patient: Total time spent is greater than 50% in coordination of care (as documented) at patient's floor/unit and/or counseling patient: Coding Level of Care Code 58199 INT INP/OBS CARE 3/75MIN Diagnoses Cellulitis L03.90 Essential hypertension I10 Hypertension type: essential hypertension Paroxysmal atrial fibrillation I48.0 (2) Hypertension Hypertension type: essential hypertension Qualified Code(s): I10 - Essential (primary) hypertension
[2024-04-26 16:43] LABS: Fibrinogen 325 mg/dl (184-400); INR 1.1 (0.9-1.1); Partial Thromboplastin Ratio 1.1; Partial Thromboplastin Time 29 Seconds (21-31); Prothrombin Time 12.3 Seconds (9.0-12.0)
[2024-04-26 17:45] LABS: ANTI-Xa, LMWH(Low Molecular Wt > 1.50 IU/ML (< 0.10)
[2024-04-26] MEDS ORDERED: ALBUTEROL 0.083% NEBU SOLN 3 ML VIAL INH PRN (17:47)
[2024-04-26] MEDS: ATORVASTATIN 40 MG TAB PO SCH (20:03)
[2024-04-26] MEDS: FLECAINIDE ACETATE 100 MG TABLET PO SCH (20:03)
[2024-04-26] MEDS: APIXABAN 5 MG TABLET PO SCH (20:03)
[2024-04-26] MEDS: METOPROLOL TARTRATE 25 MG TAB PO SCH (20:03)
[2024-04-26] MEDS: ALPRAZolam 0.5 MG TABLET PO PRN (23:44)
[2024-04-27] MEDS: DICLOFENAC SOD 1% GEL 100 GM TUBE EXT PRN (01:14)
[2024-04-27] MEDS: amLODIPine BESYLATE 5 MG TAB PO SCH (08:17)
[2024-04-27] MEDS: lisinopril 20 MG TAB PO SCH (08:17)
[2024-04-27] MEDS ORDERED: METOPROLOL TARTRATE 25 MG TAB PO SCH (09:00)
[2024-04-27] MEDS: IBUPROFEN 200 MG TAB PO PRN (10:06)
--- NOTE | 2024-04-27 17:08 | Hospitalist Progress Note ---
Date of Service April 27, 2024 Assessment & Plan (1) Paroxysmal atrial fibrillation: Plan: Presented with swelling of left leg and foot. Admitted for left leg cellulitis and given ceftriaxone. No cellulitis or acute infection noted on lower extremities; antibiotics discontinued - Suspect heart failure exacerbation as patient is in A fib (despite taking flecainide), has peripheral edema, crackles in lungs, and EKG changes - New T wave inversions noted on EKG on admission - BNP elevated at 657 on admission - Echo ordered; no prior echo in chart - Pacemaker interrogated, waiting for results - Lasix x 1 given - Consider cardiology consult pending results of workup - Continue flecainide, amlodipine, Eliquis, metoprolol (2) Hypertension: Plan: Continue lisinopril Plan Updated son at bedside Ordered echo Interrogated pacemaker Ordered Lasix x 1 Chronic stable problems: Hyperlipidemia: Continue atorvastatin Dispo: PT recommending home health PT services; informed case management VTE PPx: Eliquis CODE STATUS: Full code Admission and Anticipated Discharge Date Admission Date: April 26, 2024 Supervising Physician Co-Signing Physician Notes Attending Attestation and Progress Note: Pt seen/examined, chart reviewed, care plan d/w KATRIN Ruby. I agree w/ the quezada components of her documentation. During my bedside visit pt's son was at bedside. Patient states when she had edema in her left distal leg & foot it was NOT painful, she could weight-bear, and she personally did not notice any redness. Son states her mother's right leg was also swollen recently. Patient denies dyspnea. Exam: gen - NAD, anxious to leave hospital neck - mild JVD noted mouth - MMM heart - irregularly irregular, s1 s2, no murmur lungs - mild rales b/l bases, no wheezes, no increased work of breathing abd - soft NT ND BS+ ext - trace edema left foot/ankle, no edema right foot, pulses 2+ b/l skin - NO ERYTHEMA or signs of cellulitis of left foot/ankle/distal brown Labs reviewed EKG from admission - a.fib, ST depression inferior leads and anterolateral leads (NEW) BNP elevated - 657 A/P: 1. edema - suspect due to cardiac causes; NO EVIDENCE of cellulitis of LLE - d/c any abx * obtain echo * lasix 2. abnormal EKG - deep T wave inversions anteriorly - NEW. Echo ordered. 3. a.fib - review of office notes - sees Dr Fajardo. Last few pacer interrogations have shown less a.fib burden. Last interrogation was 02/2024. Repeat another interrogation to see if she has had greater a.fib burden despite the flecainide. Cont Eliquis. Uncontrolled a.fib could be contributing to #1. 4. cellulitis - ruled out. 5. pacemaker status. son updated at bedside. he agrees with his mother staying to get echo, interrogation, etc. Stanley Ashraf MD Subjective Patient seen and evaluated at bedside. She reports she started noticing some swelling in her legs about 1 week ago. She denies any fever or chills at home. It appears as though she does have some short-term memory loss. She denied any pain in her legs. Returned to bedside with Dr. Ashraf when son arrived. We discussed that we do not believe she has a cellulitis infection, but rather is in heart failure as she is in A fib, has crackles on lung exam, peripheral edema, elevated BNP on admission, and EKG changes compared to previous. Discussed continued stay for cardiac workup. Patient and son are agreeable. No additional complaints or concerns at this time. Physical Exam Physical Exam: General: No acute distress, nondiaphoretic, well-developed, well-nourished. Skin: 2+ pitting edema to lower extremities bilaterally. No erythema or warmth to lower extremities. No signs of cellulitis to LLE. Cardiac: Irregularly irregular in the 80s without murmurs gallops or rubs. Pulm: Mild crackles noted at bases bilaterally but otherwise clear to auscultation. No respiratory distress. 96% on room air. Abdominal: Soft, nontender, nondistended. Bowel sounds present. Neuro: A&O x3. No focal neurological deficits. Results & Data Results & Data Vital Signs (Past 12 Hours) Vital Signs Temp Pulse Resp BP BP Pulse Ox O2 Del Method 04/27/24 15:40 98.2 F 85 19 163/92 H 96 Room Air 04/27/24 07:24 98.6 F 74 19 143/86 H 92 Room Air PG Care Time/CCT Total # of Minutes Spent Total Time Spent with Patient: Total time spent is greater than 50% in coordination of care (as documented) at patient's floor/unit and/or counseling patient: Coding Level of Care Code 34271 SUB INP/OBS CARE MIN Diagnoses Paroxysmal atrial fibrillation I48.0 Essential hypertension I10 Hypertension type: essential hypertension (2) Hypertension Hypertension type: essential hypertension Qualified Code(s): I10 - Essential (primary) hypertension
--- NOTE | 2024-04-27 18:28 | XCELERA ---
[id number] \\[id number]
[2024-04-27 19:18] VITALS: TEMP 97.3
[2024-04-27] MEDS: FUROSEMIDE 20 MG TAB PO ONE (19:40)
[2024-04-28 07:20] VITALS: RESP 17; O2SAT 92
[2024-04-28 07:58] LABS: Hemoglobin 12.6 g/dl (12.0-16.0); Mean Corpuscular Hemoglobin 28.5 pg (25.0-34.0); Mean Corpuscular Hgb Conc 32.3 g/dL (32.0-36.0); Mean Corpuscular Volume 88.2 fL (80.0-100.0); Mean Platelet Volume 9.2 fL (9.4-12.4); Platelet Count 269 K/uL (130-400); RDW Coefficient of Variation 14.7 % (11.5-14.5); RDW Standard Deviation 47.4 fL (36.4-46.3); Red Blood Count 4.42 M/uL (4.20-5.40); White Blood Count 9.14 K/ul (4.8-10.8)
--- NOTE | 2024-04-28 08:21 | Hospitalist Progress Note ---
Date of Service April 28, 2024 Assessment & Plan (1) Paroxysmal atrial fibrillation: Plan: Presented with swelling of left leg and foot. Admitted for left leg cellulitis and given ceftriaxone. No cellulitis or acute infection noted on lower extremities; antibiotics discontinued - Suspect heart failure exacerbation as patient is in A fib (despite taking flecainide), has peripheral edema, crackles in lungs, and EKG changes - New T wave inversions noted on EKG on admission - BNP elevated at 657 on admission - Echo ordered; no prior echo in chart - Pacemaker interrogated, waiting for results - Lasix 20mg POx 1 given 04/27 - Consider cardiology consult pending results of workup - Continue flecainide, amlodipine, Eliquis, metoprolol 04/28 BNP 657 on admission. Given BILATERAL LE edema and similar prior presentation without leukocytosis on admission, suspected 2nd to CHF exacerbation. ECHO obtained, noting normal LV systolic function, LA severely dilated. Aortic valve sclerosis mild without significant aortic valvular stenosis. Moderate MR. RVSP is normal. SMALL pericardial effusion Is on nebivolol 5mg daily (on metorpolol 12.5mg BID substituted while inpatient, may need to change to succinate). Remains on lisinopril 20mg daily. Consult for cardiology to see about ?cardioversion given has been on her eliquis, pacemaker interrogation ordered (should be on chart, will need to f/u) Will check TSH given last checked in Feburary given increased LE edema to ensure not related to hypothyroidism (also reported by prior provider has issues w/ memory, add B12) (2) Hypertension: Plan: Continue lisinopril Plan Updated son at bedside Ordered echo Interrogated pacemaker Ordered Lasix x 1 Chronic stable problems: Hyperlipidemia: Continue atorvastatin Dispo: PT recommending home health PT services; informed case management VTE PPx: Eliquis CODE STATUS: Full code Admission and Anticipated Discharge Date Admission Date: April 26, 2024 Results & Data Results & Data Vital Signs (Past 12 Hours) Vital Signs Temp Pulse Resp BP Pulse Ox O2 Del Method 04/28/24 07:18 36.3 C L 74 17 113/75 92 Room Air PG Care Time/CCT Total # of Minutes Spent Total Time Spent with Patient: Total time spent is greater than 50% in coordination of care (as documented) at patient's floor/unit and/or counseling patient: Coding Diagnoses Paroxysmal atrial fibrillation I48.0 Essential hypertension I10 Hypertension type: essential hypertension (2) Hypertension Hypertension type: essential hypertension Qualified Code(s): I10 - Essential (primary) hypertension
[2024-04-28 08:44] LABS: BUN Creatinine Ratio 23.5 (10-20); Calcium 9.1 mg/dl (8.6-10.3); Creatinine Clr Calc Pharmacy 36.6 ml/min; Potassium 4.2 mmol/L (3.5-5.1)
--- NOTE | 2024-04-28 10:45 | Discharge Summary ---
Discharge Summary Date of Service April 28, 2024 Principal Dx & Hospital Course #1 = Principal Diagnosis (1) CHF exacerbation: 83yo female presented to ER for eval of erythema/swelling of left foot/leg (although having b/l LE edema) without fever/chills or leukocytosis but initially concerning for LE cellulitis and was given Ceftriaxone IV however examination does NOT appear consistent with cellulitis and IV abx were discontinued. SUSPECT HFpEF, possibly secondary to atrial fibrillation w/ increased burden BNP elevated to 657 on admission w/ EKG w/ ST depression inferior and anterolateral leads (NEW) with NEGATIVE troponin and patient with hx atrial fibrillation with pacemaker in place and on eliquis/nebivolol and fleccanide per Dr aFjardo outpatient. ECHO w/ normal EF, but noting aortic valve sclerosis without significant valvular stenosis. Moderate MR. RVSP is normal. Notable small pericardial effusion Was NOT hypoxic and CXR w/o noted pulmonary congestion but was provided lasix 20mg PO with RESOLUTION in LE edema and remained AFEBRILE and discussed with cardiology and given remains in afib WITHOUT palpitations we DISCONTINUED her fleccanide and rx for lasix prn for weight gain edema and rec for low salt diet with close follow up with cardiology/PCP. Could consider outpt sleep study if having ?underlying CEDRIC and would benefit from CPAP if positive testing which can be arranged outpatient as doing well/wanting to go home and is down ~2lb from admission with stable renal function. Discussed medications changed with DC flecainide with her son on phone as well as discontinuation of her amlodipine to prevent LE edema. Remains on nebivolol, lisinopril. Can f/u with cardiology as well as CHF clinic and consider SGLT2 if no issues w/ UTIs for ongoing management. (2) Paroxysmal atrial fibrillation: Presented with swelling of left leg and foot. Venous doppler NEGATIVE for DVT Admitted for left leg cellulitis and given ceftriaxone. No cellulitis or acute infection noted on lower extremities; antibiotics discontinued as above and suspected related to CHF exacerbation. Unclear if from increased salt intake vs elevated HR but DENIED palpitations ECHO as above, BNP elevation on admission. K/mag replete, checked prior to dc TSH obtained for completeness given LE edema but not on supplementation --> WNL Remained on BB, lisinopril for CHF as above. Pacemaker interrogation w/ report~20.7hr/day in afib/flutter and recommended as discussed with manager web application dining car conductor for close follow up on prn lasix but agreed with discontinuing her fleccanide given remains in afib as well as stopping her amlodipine to prevent LE edema. F/u cards outpatient. Remained on BB/eliquis which were continued at dc. (3) Hypertension: Continued lisinopril, BB (metoprolol while inpatient to be back to nebivolol at discharge) STOPPED amlodipine Monitor in f/u for adjustments as needed since stopping her amlodipine Chronic stable problems: Hyperlipidemia: Continue atorvastatin PT/OT rec for services however patient declined. Plan Discharged home with son with prn lasix, outpatient f/u cardiology/CHF clinic and discontinued flecainide given remains primarily in afib as well as amlodipine to prevent LE edema. Daily monitoring of weights and low salt diet encouraged. Notes For Next Care Provider Ensure follow up on weights/lasix use as well as possible increase in her BB/lisinopril if needed since discontinuing her amlodipine Educated son on monitoring her daily weights to bring in follow up (down 1kg prior to discharge with ONE TIME dose of lasix), and can consider daily if needed but wanting to prevent overdiuresis as appearing stable with one time dose. Consideration for SGLT2 in follow up with PCP/cards/CHF clinic if not contraindicated (A1c last 6.1) Consideration for sleep study for possible underlying CEDRIC Medication Changes From Visit DC amlodipine, flecainide Lasix 20mg PO PRN weight gain/edema B12 1000mcg PO daily Admission HPI Per Admitting Provider Patient is a 83 y/o lady presented to ED for evaluation of erythema and swelling of left leg and foot that she noticed today. She never had similar symptoms in the past. She denies associated fever, chills, malaise, pain, chest pain or shortness of breath. She ambulates independently and denies any falls in the recent past. She has h/o recurrent falls. Admission Exam Per Admitting Provider resting comfortably, non toxic lungs clear to auscultation b/l Heart RRR PA Soft, NT, ND, BS+ Skin erythema of lower third of the leg extending to the dorsum of the left foot AAO##, Non focal Discharge Exam General: 83yo female sitting up in bed, NAD, reporting feeling well/wanting to go home HEENT: head atraumatic, normocephalic, mmm, trachea midline Resp: even/unlabored, slightly diminished in the bases but no w/c/r, on room air CV: irregularly irregular, rates 60-80s, +systolic murmur, decreased LE edema bilaterally, NO erythema or evidence for cellulitis, pulses present GI :+BS, soft/NT no cottrell MSK/Neuro: answering questions appropriately, not confused, is forgetful at baseline but depends on son for medications reported Psych:AOx3, cooperative with exam Discharge Plan Discharge Items Patient Disposition: Home - Self-Care Reason For Visit: LEFT LEG CELLULITIS Discharge Diagnosis: Congestive Heart Failure Goals: You have been hospitalized for an acute medical problem. During your stay at [facility], we have made an effort to correct the problem that brought you to the hospital while keeping you as comfortable as possible. Medications were used to bring your condition under control and your discharge instructions will include directions for any medications you should take after leaving the hospital. Please make sure you see your Primary Care Provider as part of your follow up plan. Activity: As commented below Non-emergency contact: Primary Care Provider and Railroad Inspector Call non-emergency contact if: you have any medication questions, your symptoms worsen, your pain is not controlled, your pain is worsening and your pain is unusual for you Follow-up/Referrals: Remigio Fajardo MD [Physician] - 05/05/24 10:30 am Starr Novoa DO [Primary Care Provider] - 05/06/24 10:00 am Diet: Heart Healthy Fluids: 1800ml (7 cups) Addtl Attending Provider Instructions: You have been hospitalized for leg swelling with concerns for cellulitis initially however I suspect this is more likely related to congestive heart failure and was have given you a dose of lasix with improvement/resolution of the swelling. We did an ultrasound of your heart and discussed with cardiology and are sending you home on LASIX (furosemide) 20mg by mouth NEEDED for weight gain over 2- 3lb in a 24 hour period of time of 5 lb in a week. We have STOPPED your amlodipine as this medication can cause increased leg swelling. We have also STOPPED your flecainide per cardiology given not having palpitations and remaining in atrial fibrillation and this is likely NOT helping you maintain a normal rhythm but your rates have been controlled and you should continue your eliquis and nebivolol and have close follow up with cardiology at discharge for ongoing management. We have also checked a B12 level which was borderline low and gave you a shot and are continuing oral replacement once daily which can help with memory, anemia, and balance. Home health is being arranged at discharge per therapy recommendations. Please follow up with cardiology as well as primary care at discharge to monitor your progress after hospitalization. Please return to the ER with any increased leg swelling/edema, fever/chills, chest pain or shortness of breath, or for any other symptoms concerning for you. It has been a pleasure being a part of the medical team providing for you while you have been in the hospital. Take care! Pending Studies at Discharge: No Stand-Alone Forms: [facility], Sm[facility] Cess[facility] Medications and DC Order Prescriptions: New cyanocobalamin (vitamin B-12) 1,000 mcg capsule 1,000 mcg PO DAILY Qty: 30 0RF furosemide 20 mg tablet 20 mg PO QAM PRN (Reason: edema) Qty: 30 0RF Continued lisinopril 20 mg tablet 20 mg PO DAILY Qty: 90 3RF Eliquis 5 mg tablet 5 mg PO BID Qty: 60 11RF nebivolol 5 mg tablet 5 mg PO QAM Qty: 90 3RF Rx Instructions: Take in the Morning. atorvastatin 40 mg tablet 40 mg PO HS Qty: 90 3RF alprazolam 0.5 mg tablet 0.5 mg PO BID PRN (Reason: anxiety) Qty: 60 0RF albuterol sulfate 2.5 mg /3 mL (0.083 %) solution for nebulization 2.5 mg inhalation UD PRN (Reason: sob) Rx Instructions: 2.5 mg q4h prn. Not on file with pharmacy albuterol sulfate 90 mcg/actuation HFA aerosol inhaler 2 puff inhalation Q4H PRN (Reason: sob/wheezing) Rx Instructions: inhale 2 puffs by mouth and INTO THE LUNGS every 4 hours if needed for cough shortness of breath or wheezing alendronate 70 mg tablet 70 mg PO UD Rx Instructions: 70 mg po wk. Not on file with pharmacy diclofenac sodium 1 % gel 4 g topical UD PRN (Reason: Pain) Rx Instructions: 4 g QID prn. OTC/not on file with pharmacy Apply 4MG of gel to affected area of lower extremities 4x daily. Discontinued amlodipine 5 mg tablet 5 mg PO DAILY Qty: 90 3RF flecainide 100 mg tablet 100 mg PO BID Qty: 180 3RF Discharge Orders: Discharge Order- CHF (Routine); Ordered 04/28/24 Ordered By: Kaity Iraheta Admission Data Admit Date/Time: 04/26/24 15:03 Attending Provider: Siva Urias Admit Provider: Louisa Tirado Primary Care Provider: Starr Novoa Other Providers: Louisa Tirado Other Interventions: Discharge Summary Assessment (RN) Last Done: 04/28/24 10:51 Hospital Stay Data Consultations 04/26/24 14:20 ED Decision to Admit Stat Diagnostic Imagining Performed Chest X-Ray 04/26/24 11:10 XR chest 1V portable CLINICAL HISTORY: Chest pain, nonspecific COMPARISON STUDY: Chest radiograph August 02, 2021. FINDINGS: Dual lead left subclavian pacemaker is unchanged in position. Lung volumes are normal. Lungs are clear. There is no pneumothorax or pleural effusion. Mild cardiomegaly is unchanged. Mediastinal contours are normal. There is no evidence for pulmonary edema. IMPRESSION: No acute cardiopulmonary findings. ACT 112: Negative or not required by law. Electronically signed by: Prosper Mathews M.D. 04/26/2024 12:03 PM Venous Doppler Study 04/26/24 11:10 LEFT LOWER EXTREMITY VENOUS DOPPLER CLINICAL HISTORY: Left leg pain and swelling. COMPARISON STUDY: Bilateral lower extremity venous Doppler ultrasound July 25, 2020. TECHNIQUE: Sonography of the deep venous system of the left lower extremity was performed. Compression and augmentation were evaluated. FINDINGS: The left common femoral, superficial femoral and popliteal veins were compressible. Augmentation was normal. Flow was shown within the deep calf vessels. IMPRESSION: No evidence of deep venous thrombus within the left lower extremity. ACT 112: Negative or not required by law. Electronically signed by: Prosper Mathews M.D. 04/26/2024 12:47 PM ECHO Normal LV systolic function, LA severely dilated. Aortic valve sclerosis mild without significant aortic valvular stenosis. Moderate MR. RVSP is normal. SMALL pericardial effusion Pending Results Patient Have Any Pending Studies at Discharge: No Discharge Instructions Given to Patient (Per Discharging Provider) You have been hospitalized for leg swelling with concerns for cellulitis initially however I suspect this is more likely related to congestive heart failure and was have given you a dose of lasix with improvement/resolution of the swelling. We did an ultrasound of your heart and discussed with cardiology and are sending you home on LASIX (furosemide) 20mg by mouth NEEDED for weight gain over 2- 3lb in a 24 hour period of time of 5 lb in a week. We have STOPPED your amlodipine as this medication can cause increased leg swelling. We have also STOPPED your flecainide per cardiology given not having palpitations and remaining in atrial fibrillation and this is likely NOT helping you maintain a normal rhythm but your rates have been controlled and you should continue your eliquis and nebivolol and have close follow up with cardiology at discharge for ongoing management. We have also checked a B12 level which was borderline low and gave you a shot and are continuing oral replacement once daily which can help with memory, anemia, and balance. Home health is being arranged at discharge per therapy recommendations. Please follow up with cardiology as well as primary care at discharge to monitor your progress after hospitalization. Please return to the ER with any increased leg swelling/edema, fever/chills, chest pain or shortness of breath, or for any other symptoms concerning for you. It has been a pleasure being a part of the medical team providing for you while you have been in the hospital. Take care! Supervising Physician Co-Signing Physician Notes The patient was not seen by me. The chart was reviewed. Case discussed with KATRIN Gustafson. Agree with assessment and plan Total Time Total Time Spent Total Time Spent (In Minutes): 45 Coding Level of Care Code 44149 INP/OBS DISCH >30 MIN Diagnoses CHF exacerbation I50.9 Paroxysmal atrial fibrillation I48.0 Essential hypertension I10 Hypertension type: essential hypertension
[2024-04-28 10:52] VITALS: BP 163/92; PULSE 77
[2024-04-28] MEDS: CYANOCOBALAMIN 1000 MCG/ML VIAL IM SCH (12:00)
== END 2024-04-28 12:40 | disposition home or self-care (01) ==
LOC: SUATTDRO → ED 10:47 → 3N 10:47 → SUATTDRO 15:03 → 3N 17:13